=== PATIENT | female | born 1965 | race Caucasian/White ===

== ENCOUNTER 2023-05-27 10:35 | Emergency (ER) | payer SELFPAY ==
[2023-05-27 10:49] VITALS: TEMP 97.3
--- NOTE | 2023-05-27 11:14 | XRAY ---
Indication: Pain. Comparison: None 3 view right knee demonstrates osteopenia, minimal/mild tricompartmental degenerative changes greatest medial compartment, small nonspecific effusion, and mild scattered vascular calcifications. No other bony, articular, or soft tissue abnormalities.
--- NOTE | 2023-05-27 11:23 | ERPHSYRPT ---
- History of Present Illness Time Seen by Provider: 05/27/23 11:00 Source: patient Exam Limitations: no limitations Patient Subjective Stated Complaint: Right knee injury Triage Nursing Assessment: Patient brought into ED per w/c and transferred to bed per self. Patient A+O X 3. Patient's skin pink, warm and dry. Patient states she was at work walking up stairs and felt a "pop" to right knee. Patient complains of pain to right knee and behind knee 7/10; worse when ambulating. Right knee noted to be swollen. Physician History: Patient is a 58-year-old female presents to our ED for evaluation of pain to her right knee. She was walking upstairs felt a pop. Patient now has pain rated 7 out of 10. Patient also has pain behind the right knee as well as in her right calf. Pain worse with weightbearing pain improved with rest. Symptoms are mild to moderate in intensity. Patient voices no other complaints or concerns at this time. Portions of this note were created with voice recognition technology. There may be grammatical, spelling, punctuation or sound alike errors Method of Injury: other Occurred: just prior to arrival Quality: constant Severity of Pain-Max: moderate Severity of Pain-Current: mild Lower Extremities Pain: knee: right, other: right (Right lower extremity is neurovascular tact distally. Compartments are soft. Cap refill less than 2 seconds.) Modifying Factors: Improves With: movement Associated Symptoms: none Allergies/Adverse Reactions: adhesive tape Allergy (Verified 05/27/23 10:40) cephalexin [From Keflex] Allergy (Verified 05/27/23 10:40) Hx Influenza Vaccination/Date Given: No Hx Pneumococcal Vaccination/Date Given: No Immunizations Up to Date: Yes Travel Risk - International Travel Have you traveled outside of the country in past 3 weeks: No - Coronavirus Screening Are you exhibiting any of the following symptoms?: No Close contact with a COVID-19 positive Pt in past 14-21 Days: No - Vaccine Status Have you recieved a Covid-19 vaccination: No - Review of Systems Constitutional: No Symptoms, No Fever, No Chills Eyes: No Symptoms Ears, Nose, & Throat: No Symptoms Respiratory: No Symptoms, No Cough, No Dyspnea Cardiac: No Symptoms, No Chest Pain, No Edema, No Syncope Abdominal/Gastrointestinal: No Symptoms, No Abdominal Pain, No Nausea, No Vomiting, No Diarrhea Genitourinary Symptoms: No Symptoms, No Dysuria Musculoskeletal: No Symptoms, No Back Pain, No Neck Pain Skin: No Symptoms, No Rash Neurological: No Dizziness, No Focal Weakness, No Sensory Changes Psychological: No Symptoms Endocrine: No Symptoms Hematologic/Lymphatic: No Symptoms Immunological/Allergic: No Symptoms All Other Systems: Reviewed and Negative - Past Medical History Pertinent Past Medical History: Yes Neurological History: No Pertinent History ENT History: No Pertinent History Cardiac History: Hypertension Respiratory History: No Pertinent History Endocrine Medical History: No Pertinent History Musculoskeletal History: No Pertinent History GI Medical History: No Pertinent History History: No Pertinent History Psycho-Social History: Depression Female Reproductive Disorders: No Pertinent History - Past Surgical History Past Surgical History: Yes Neuro Surgical History: No Pertinent History Cardiac: No Pertinent History Respiratory: No Pertinent History Gastrointestinal: No Pertinent History Genitourinary: Other Female Surgical History: Dilation & Curettage, Section Other Surgical History: 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 mesh surgery 2011 - Social History Smoking Status: Never smoker Exposure to second hand smoke: No Drug Use: none Patient Lives Alone: No - Nursing Vital Signs Nursing Vital Signs: Initial Vital Signs Temperature 97.3 F 05/27/23 10:43 Pulse Rate 77 05/27/23 10:43 Respiratory Rate 18 05/27/23 10:43 Blood Pressure 201/104 05/27/23 10:43 O2 Sat by Pulse Oximetry 99 05/27/23 10:43 Pain Scale Pain Intensity 5 - Physical Exam General Appearance: no apparent distress, alert Eyes, Ears, Nose, Throat Exam: normal ENT inspection, moist mucous membranes Neck Exam: non-tender, supple Cardiovascular/Respiratory Exam: chest non-tender, normal breath sounds, regular rate/rhythm, no respiratory distress Gastrointestinal/Abdominal Exam: non-tender, soft, No guarding Back Exam: normal inspection, normal range of motion, No vertebral tenderness Hips Exam: bilateral: non-tender, normal inspection, normal range of motion, no evidence of injury Legs Exam: right leg: other (Positive Homans' sign right lower extremity. Otherwise neurovascular intact distally. Compartments are soft. Cap refill less than 2 seconds.), left leg: non-tender, normal inspection, normal range of motion, no evidence of injury Knees Exam: right knee: pain, other (On the ligaments are stable. The involved extremity is neurovascular intact distally. Compartments are soft cap refill less than 2 seconds.), left knee: non-tender, normal inspection, normal range of motion, no evidence of injury Ankle Exam: bilateral ankle: non-tender, normal inspection, normal range of motion, no evidence of injury Foot Exam: bilateral foot: non-tender, normal inspection, normal range of motion, no evidence of injury Neuro/Tendon Exam: normal sensation, normal motor functions Mental Status Exam: alert, oriented x 3, cooperative Skin Exam: normal color, warm, dry SpO2 Interpretation: normal SpO2: 99 O2 Delivery: Room Air - Course Nursing assessment & vital signs reviewed: Yes - Radiology Exams Knee X-ray Interpretation: Teleradiologist Report (Osteopenia, tricompartment arthritis, effusion and vascular calcification) - Radiology Ultrasound Exam Venous Lower Extremity Ultrasound: discussed w/radiologist (Per calender machine operator negative DVT study) Ordered Tests: Active Orders 24 hr Category Date Time Status Selwyn Bandage Application -[facility] STAT Care 05/27/23 11:47 Active Crutches STAT Care 05/27/23 12:02 Active KNEE (3 VIEWS) Stat Exams 05/27/23 10:38 Completed VENOUS UNILAT/LIMITED EXTREMIT [US] Stat Exams 05/27/23 11:26 Completed Medication Summary Discontinued Medications Generic Name Dose Route Start Last Admin Trade Name Larisa PRN Reason Stop Dose Admin Ketorolac Tromethamine 30 mg 05/27/23 11:29 05/27/23 11:35 Ketorolac Tromethamine 30 Mg/Ml Inj IM 05/27/23 11:30 30 mg STAT ONE Administration Ketorolac Tromethamine Confirm 05/27/23 11:40 Ketorolac Tromethamine 30 Mg/Ml Inj Administered 05/27/23 11:41 Dose 30 mg .ROUTE .STK-MED ONE - Progress Progress: improved Progress Note: Patient's blood pressure observed to be elevated however patient remains asymptomatic with regard to her blood pressure. Patient states she has not been on blood pressure medication for at least 6 months. Patient recently moved to the area from [facility]. Patient has been planning to see Dr. Javier however has not scheduled an appointment. In light of patient's blood pressure we schedule an appointment to follow-up with Dr. Javier in 2 days, at 2 PM. Patient agrees to follow-up as scheduled. Work note was provided. We applied Selwyn wrap to the right knee and provide patient with bilateral axillary crutches. A referral to the orthopedic clinic was also provided. Patient received IM dose of Toradol. A prescription for the same was forwarded to patient's pharmacy. Patient resting comfortably. She voices no other complaints or concerns at this time. Portions of this note were created with voice recognition technology. There may be grammatical, spelling, punctuation or sound alike errors 05/27/23 11:[address] Griggs (Case discussed with Dr. Resendiz at 12:20 PM. She advised starting losartan 50 mg daily for 7 days at least until patient follows up with Dr. Javier in the office) Counseled pt/family regarding: diagnosis, need for follow-up, rad results - Departure Departure Disposition: Home Clinical Impression: Knee pain, Osteopenia, Knee effusion, Arthritis of knee, Vascular calcification, Hypertension Condition: Stable Critical Care Time: No Referrals: DOCTOR,NO FAMILY [Primary Care Provider] - Follow up/PCP as directed Instructions: Knee Pain (DC) Additional Instructions: Discharge/Care Plan NATO FERNANDEZ was seen on 05/27/23 in the Emergency Room. The patient was counseled regarding Diagnosis,Lab results, Imaging studies, need for follow up and when to return to the Emergency Room. Prescriptions given: Discharge Note I have spoken with the patient and/or caregivers. I have explained the patient's condition, diagnosis and treatment plan based on the information available to me at this time. I have answered the patient's and/or caregiver's questions and addressed any concerns. The patient and/or caregivers have as good understanding of the patient's diagnosis, condition and treatment plan as can be expected at this point. The vital signs have been stable. The patient's condition is stable and appropriate for discharge from the emergency department. The patient will pursue further outpatient evaluation with the primary care physician or other designated or consulting physician as outlined in the discharge instructions. The patient and/or caregivers are agreeable to this plan of care and follow-up instructions have been explained in detail. The patient and/or caregivers have received these instruction. The patient/and or caregivers are aware that any significant change in condition or worsening of symptoms should prompt an immediate return to this or the closest emergency department or call 911. Prescriptions: Losartan Potassium 50 mg [Cozaar 50 MG] 50 mg PO DAILY 7 Days #7 tablet Ketorolac Trometh 10 mg Tab [TORAdol 10 MG TABLET] 10 mg PO TID 5 Days #15 tablet Outpatient Orders: Ortho Referral Time Frame: 1 Day, Facility: [facility], Location: ORTHO CLINIC
[2023-05-27] MEDS: TORAdol 30 mg Injection IM ONE (11:35)
[2023-05-27] MEDS ORDERED: TORAdol 30 mg Injection ONE (11:40)
--- NOTE | 2023-05-27 11:53 | XRAY ---
Indication: Pain. DVT. Two-dimensional sonogram and color Doppler imaging of the major venous vessels of the right leg performed. Comparison: None No thrombus seen in the examined deep venous vessels of the right leg including greater saphenous vein. Veins demonstrate normal compressibility. Venous waveforms are normal with and without augmentation. Impression: Right leg negative for DVT.
[2023-05-27 12:27] VITALS: RESP 16
[2023-05-27] MEDS: Cozaar 50 MG PO ONE (12:30)
[2023-05-27 12:51] VITALS: BP 181/102; PULSE 78; O2SAT 99
== END 2023-05-27 12:55 | disposition home or self-care (01) ==
LOC: ED 10:35
DX: M17.11 Unilateral primary osteoarthritis, right knee (principal); M25.561 Pain in right knee; M85.88 Other specified disorders of bone density and structure, other site; M25.461 Effusion, right knee; I70.201 Unspecified atherosclerosis of native arteries of extremities, right leg; I10 Essential (primary) hypertension; M79.661 Pain in right lower leg; Z28.310 Unvaccinated for COVID-19
CPT/HCPCS: 73562; 93971; 96372; 99284; J1885; A9270-GY

== ENCOUNTER 2023-10-10 14:26 | Observation (INO) | payer BC ==
[2023-10-10] MEDS ORDERED: Sodium Chloride 0.9% 1000 ML 1,000 ML ONE ×4 (14:37→19:01)
[2023-10-10] MEDS ORDERED: CLONIDINE 0.1 MG TABLET ONE (15:12)
[2023-10-10] MEDS: Sodium Chloride 0.9% 1000 ML 1,000 ML IV STA ×2 (15:12)
[2023-10-10] MEDS: CLONIDINE 0.1 MG TABLET PO ONE (15:12)
[2023-10-10] MEDS: Sodium Chloride 0.9% 1000 ML 1,000 ML IV SCH ×2 (16:15→19:03)
--- NOTE | 2023-10-10 17:00 | ERPHSYRPT ---
- History of Present Illness Time Seen by Provider: 10/10/23 14:45 Historian: patient Exam Limitations: no limitations Patient Subjective Stated Complaint: Pt was at the infusion center today to get a bolus of fluid due to her lactic being 2.2 yesterday and her pH slightly low Triage Nursing Assessment: Pt brought self to the hospital, hypertensive, denies pain, has had diarrhea for a week so pt went to see Marielle Williamson a couple of days ago and she ordered labs which were done yesterday, afterwards pt was told to go to the infusion center for some fluids, Infusion thought that the pt's labs were still out of whack so they sent her to the ER, pt states that she just feels tired and weak, no new meds or foods, no difficulty breathing, denies chest pain, doesn't appear to be in any distress Physician History: Patient is a 58-year-old white female who has been had diarrhea for a week. She saw her nurse practitioner provider and labs were ordered and were found to be slightly out of whack and that she had a elevated lactic acid she also had bicarb of 14.8. CO2 on electrolytes was 16. Lactic acid was 2.2.She wasShe did receive a call from her nurse practitioner telling her to go to the infusion center so she could receive fluids in the infusion center further labs were done which did not seem to show the correction that was expected. Is the reason she was sent to the ER.She has lost weight.She has been unable to get a stool specimen since she has been in the hospital at the infusion center or in the ER at the time of this dictation. Timing/Duration: week(s) (1) Activities at Onset: none Pain Radiation: no radiation Severity of Pain-Max: mild Severity of Pain-Current: mild Previous symptoms: no prior history Allergies/Adverse Reactions: adhesive tape Allergy (Verified 10/10/23 14:49) cephalexin [From Keflex] Allergy (Verified 10/10/23 14:49) Home Medications: ALPRAZolam 0.25 MG [xanAX 0.25 MG] 0.25 mg PO TID 10/10/23 [History] Bupropion HCl Xl 150 mg [Wellbutrin XL 150 MG] 150 mg PO DAILY 10/10/23 [History] Clonidine HCl 0.1 mg [Clonidine 0.1 mg Tablet] 0.1 mg PO BID 10/10/23 [History] Duloxetine HCl [Cymbalta] 60 mg PO DAILY 10/10/23 [History] Metoprolol Succinate 25 mg Xl* [Toprol-Xl 25MG Tablets] 25 mg PO DAILY 10/10/23 [History] Hx Influenza Vaccination/Date Given: No Hx Pneumococcal Vaccination/Date Given: No Travel Risk - International Travel Have you traveled outside of the country in past 3 weeks: No - Emerging Infectious Disease Are you exhibiting symptoms associated with any current EIDs: Yes Symptoms: Diarrhea - Review of Systems Constitutional: No Fever, No Chills Eyes: No Symptoms Ears, Nose, & Throat: No Symptoms Respiratory: No Cough, No Dyspnea Cardiac: No Chest Pain, No Edema, No Syncope Abdominal/Gastrointestinal: Abdominal Pain, Nausea, Vomiting, Diarrhea Genitourinary Symptoms: No Dysuria Musculoskeletal: No Back Pain, No Neck Pain Skin: No Rash Neurological: No Dizziness, No Focal Weakness, No Sensory Changes Psychological: No Symptoms Endocrine: No Symptoms All Other Systems: Reviewed and Negative - Past Medical History Pertinent Past Medical History: Yes Neurological History: No Pertinent History ENT History: No Pertinent History Cardiac History: High Cholesterol, Hypertension Respiratory History: No Pertinent History Endocrine Medical History: No Pertinent History Musculoskeletal History: No Pertinent History GI Medical History: No Pertinent History History: Other Psycho-Social History: Depression Female Reproductive Disorders: No Pertinent History Other Medical History: [facility] - Past Surgical History Past Surgical History: Yes Neuro Surgical History: No Pertinent History Cardiac: No Pertinent History Respiratory: No Pertinent History Gastrointestinal: No Pertinent History Genitourinary: Other Female Surgical History: Dilation & Curettage, Section Other Surgical History: 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 mesh surgery 2012 - Social History Smoking Status: Never smoker Exposure to second hand smoke: No Drug Use: none Patient Lives Alone: No - Nursing Vital Signs Nursing Vital Signs: Initial Vital Signs Temperature 97.3 F 10/10/23 14:37 Pulse Rate 75 10/10/23 14:37 Blood Pressure 212/94 10/10/23 14:37 O2 Sat by Pulse Oximetry 100 10/10/23 14:37 Pain Scale Pain Intensity 0 - Physical Exam General Appearance: no apparent distress, alert Eye Exam: PERRL/EOMI, eyes nml inspection Ears, Nose, Throat Exam: normal ENT inspection, pharynx normal, moist mucous membranes Neck Exam: normal inspection, non-tender, supple, full range of motion Respiratory Exam: normal breath sounds, lungs clear, No respiratory distress Cardiovascular Exam: regular rate/rhythm, normal heart sounds Gastrointestinal/Abdomen Exam: normal bowel sounds, tenderness, other (Right lower quadrant has a ureterostomy), No mass Back Exam: normal inspection, normal range of motion, No CVA tenderness, No vertebral tenderness Extremity Exam: normal inspection, normal range of motion, pelvis stable Neurologic Exam: alert, oriented x 3, cooperative, normal mood/affect, nml cerebellar function, sensation nml, No motor deficits Skin Exam: normal color, warm, dry SpO2: 100 - Course Nursing assessment & vital signs reviewed: Yes Ordered Tests: Active Orders 24 hr Category Date Time Status BLOOD CULTURE Stat Lab 10/10/23 16:08 Received CBC W DIFF Stat Lab 10/10/23 17:45 Completed CMP Stat Lab 10/10/23 17:45 Completed Lactic Acid Stat Lab 10/10/23 17:20 Completed VENOUS BLOOD GAS Stat Lab 10/10/23 17:20 Completed Medication Summary Generic Name Dose Route Start Last Admin Trade Name Freq PRN Reason Stop Dose Admin Sodium Chloride 1,000 mls @ 999 mls/hr 10/10/23 16:15 10/10/23 17:19 Sodium Chloride 0.9% 1000 Ml IV 10/10/23 17:15 Infused .Q1H1M JENNIFER Infusion Discontinued Medications Generic Name Dose Route Start Last Admin Trade Name Freq PRN Reason Stop Dose Admin Clonidine 0.1 mg 10/10/23 15:10 10/10/23 15:12 Clonidine Hcl 0.1 Mg Tablet PO 10/10/23 15:11 0.1 mg STAT ONE Administration Clonidine Confirm 10/10/23 15:12 Clonidine Hcl 0.1 Mg Tablet Administered 10/10/23 15:13 Dose 0.1 mg .ROUTE .STK-MED ONE Sodium Chloride Confirm 10/10/23 14:37 Sodium Chloride 0.9% 1000 Ml Administered 10/10/23 14:38 Dose 1,000 mls @ ud .ROUTE .STK-MED ONE Sodium Chloride 1,000 mls @ 999 mls/hr 10/10/23 15:02 10/10/23 16:29 Sodium Chloride 0.9% 1000 Ml IV 10/10/23 16:02 Infused .Q1H1M STA Infusion Sodium Chloride 1,000 mls @ 999 mls/hr 10/10/23 15:05 10/10/23 16:29 Sodium Chloride 0.9% 1000 Ml IV 10/10/23 16:05 Infused .Q1H1M STA Infusion Sodium Chloride Confirm 10/10/23 15:12 Sodium Chloride 0.9% 1000 Ml Administered 10/10/23 15:13 Dose 1,000 mls @ ud .ROUTE .STK-MED ONE Sodium Chloride Confirm 10/10/23 16:13 Sodium Chloride 0.9% 1000 Ml Administered 10/10/23 16:14 Dose 1,000 mls @ ud .ROUTE .[facility]-MED ONE Lab/Rad Data: Laboratory Result Diagrams 10/10/23 17:45 10/10/23 17:45 Laboratory Results 10/10/23 10/10/23 10/10/23 Range/Units 17:45 17:45 17:20 WBC 4.9 (4.0-10.5) x10^3/uL RBC 3.41 L (4.1-5.4) x10^6/uL Hgb 9.9 L (12.0-16.0) g/dL Hct 29.9 L (35-47) % MCV 87.7 (78-100) fL MCH 29.0 (26-32) pg MCHC 33.1 (32-36) g/dL RDW 13.6 (11.5-14.0) % Plt Count 170 (150-450) x10^3/uL MPV 10.2 (7.5-11.0) fL Gran % 61.1 (36.0-66.0) % Immature Gran % (Auto) 0.2 (0.00-0.4) % Nucleat RBC Rel Count 0.0 (0.00-0.1) % Eos # (Auto) 0.22 (0-0.5) x10^3/uL Immature Gran # (Auto) 0.01 (0.00-0.03) x10^3u/L Absolute Lymphs (auto) 1.25 (1.0-4.6) x10^3/uL Absolute Monos (auto) 0.39 (0.0-1.3) x10^3/uL Absolute Nucleated RBC 0.00 (0.00-0.01) x10^3u/L Lymphocytes % 25.8 (24.0-44.0) % Monocytes % 8.0 (0.0-12.0) % Eosinophils % 4.5 (0.00-5.0) % Basophils % 0.4 (0.0-0.4) % Absolute Granulocytes 2.96 (1.4-6.9) x10^3/uL Basophils # 0.02 (0-0.4) x10^3/uL pO2/FiO2 Ratio 21.0 % VBG pH 7.27 L (7.32-7.42) VBG pCO2 at Pat Temp 26 L (42-55) mm/Hg VBG pO2 at Pat Temp 103 H (25-40) mm/Hg VBG HCO3 11.9 L* (22-28) meq/L VBG O2 Sat (Heather) 98.7 (95-100) VBG Base Excess -13.5 L (-2.0-2.0) VBG Hemoglobin 10.4 VBG Carboxyhemoglobin 1.3 (0.0-6.9) % T HGB POC Potassium 3.4 L (3.5-5.1) Sodium 139 (135-145) mmol/L Potassium 3.3 L (3.5-5.1) mmol/L Chloride 120 H (98-107) mmol/L Carbon Dioxide 10 L* (22-30) mmol/L Anion Gap 12.5 (5-15) MEQ/L BUN 14 (7-17) mg/dL Creatinine 0.91 (0.52-1.04) mg/dL Estimated GFR 73.1 ML/MIN Glucose 85 (74-106) mg/dL Lactic Acid 0.4 (0.4-2.0) Calcium 7.6 L D (8.4-10.2) mg/dL Total Bilirubin 0.30 (0.2-1.3) mg/dL AST 15 (14-36) U/L ALT 7 (0-35) U/L Alkaline Phosphatase 53 (38-126) U/L Serum Total Protein 5.8 L (6.3-8.2) g/dL Albumin 3.0 L (3.5-5.0) g/dL - Progress Progress: improved Medical Desision Making - Discussion of managment Care discussed with:: hospitalist (Spoke with . Dr. Owens will be the admitting physician) Reviewed:: Test results, Need for additional workup Agreed on:: Treatment plan, decision to admit Will see patient: in hospital - Diagnostic Testing Diagnostic test were ordered, analyzed, and reviewed by me: Yes - Risk of complications Low Risk: Low risk of morbidity from additional dx testing or treatment - Departure Departure Disposition: Observation Clinical Impression: Dehydration, Acidosis Condition: Stable Critical Care Time: No Referrals: HAMIDA WILLIAMSON NP [Primary Care Provider] - Follow up/PCP as directed Instructions: Dehydration, Adult (DC)
[2023-10-10 17:48] LABS: Lactic Acid 0.4 (0.4-2.0); VBG BASE EXCESS -13.5 (-2.0-2.0); VBG CARBOXYHEMOGLOBIN 1.3 % T HGB (0.0-6.9); VBG HCO3- 11.9 meq/L (22-28); VBG HEMOGLOBIN 10.4; VBG O2 SATURATION 98.7 (95-100); VBG POTASSIUM 3.4 (3.5-5.1); VBG pH 7.27 (7.32-7.42)
[2023-10-10 17:48] LABS: Absolute Neutrophil Ct (ANC) 2.96 x10^3/uL (1.4-6.9); BASOPHIL % 0.4 % (0.0-0.4); Basophil (Absolute #) 0.02 x10^3/uL (0-0.4); Eosinophil % 4.5 % (0.00-5.0); Eosinophil (Absolute #) 0.22 x10^3/uL (0-0.5); Hematocrit 29.9 % (35-47); Hemoglobin 9.9 g/dL (12.0-16.0); IMMATURE GRAN # 0.01 x10^3u/L (0.00-0.03); IMMATURE GRAN % 0.2 % (0.00-0.4); Lymphocyte (Absolute #) 1.25 x10^3/uL (1.0-4.6); Lymphocytes % 25.8 % (24.0-44.0); Mean Cell Volume 87.7 fL (78-100); Mean Corpuscular Hgb Concent. 33.1 g/dL (32-36); Mean Platelet Volume 10.2 fL (7.5-11.0); Monocyte (Absolute #) 0.39 x10^3/uL (0.0-1.3); Neutrophil % 61.1 % (36.0-66.0); Platelet Count 170 x10^3/uL (150-450); Red Blood Count 3.41 x10^6/uL (4.1-5.4); Red Cell Distribution Width 13.6 % (11.5-14.0); White Blood Count 4.9 x10^3/uL (4.0-10.5)
[2023-10-10 18:00] LABS: ANION GAP 12.5 MEQ/L (5-15); BILIRUBIN,TOTAL 0.3 mg/dL (0.2-1.3); Creatinine 1 0.91 mg/dL (0.52-1.04); EST GLOMERULAR FILTRATION RATE 73.1 ML/MIN; Potassium 3.3 mmol/L (3.5-5.1); Total Protein 5.8 g/dL (6.3-8.2)
[2023-10-10 18:15] LABS: Calcium 7.6 mg/dL (8.4-10.2)
[2023-10-10] MEDS ORDERED: PHENERGAN 25 MG PO PRN (19:21)
[2023-10-10] MEDS ORDERED: Dextrose 5%/Water IV Soln. 1000 ML 1,000 ML IV ONE (19:22)
[2023-10-10] MEDS ORDERED: SODIUM BICARBONATE 50 MEQ/50 ML ABBOJECT IV ONE (19:22)
--- NOTE | 2023-10-10 19:29 | PCM.HP ---
History of Present Illness - Chief Complaint Chief Complaint: Dehydration History of Present Illness: is a 58 year old female with HTN, HLP, depression/anxiety here with c/o diarrhea x 1 week. Has chills but no fever. No dysuria. No bloody stools or black stools. 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 She went to her [facility] and had lab drawn and saw lactic acid was high and then IVF was given. Today, she came in because not better. - Review of Systems Constitutional: Chills Eyes: No Symptoms Ears, Nose, & Throat: No Symptoms Respiratory: No Symptoms Cardiac: No Symptoms Abdominal/Gastrointestinal: Diarrhea Genitourinary Symptoms: No Symptoms Musculoskeletal: No Symptoms Skin: No Symptoms Neurological: No Symptoms Psychological: No Symptoms Endocrine: No Symptoms Hematologic/Lymphatic: No Symptoms Immunological/Allergic: No Symptoms Medications & Allergies Home Medications: Home Medication List Losartan Potassium 50 mg [Cozaar 50 MG] 50 mg PO DAILY 7 Days #7 tablet 05/27/23 [Rx Confirmed 10/10/23] ALPRAZolam 0.25 MG [xanAX 0.25 MG] 0.25 mg PO TID 10/10/23 [History Confirmed 10/10/23] Bupropion HCl Xl 150 mg [Wellbutrin XL 150 MG] 150 mg PO DAILY 10/10/23 [History Confirmed 10/10/23] Clonidine HCl 0.1 mg [Clonidine 0.1 mg Tablet] 0.1 mg PO BID 10/10/23 [History Confirmed 10/10/23] Duloxetine HCl [Cymbalta] 60 mg PO DAILY 10/10/23 [History Confirmed 10/10/23] Metoprolol Succinate 25 mg Xl* [Toprol-Xl 25MG Tablets] 25 mg PO DAILY [History Confirmed 10/10/23] Allergies/Adverse Reactions: Allergies Allergy/AdvReac Type Severity Reaction Status Date / Time adhesive tape Allergy Verified 10/10/23 14:49 cephalexin [From Keflex] Allergy Verified 10/10/23 14:49 - Past Medical History Past Medical History: Yes Neurological History: No Pertinent History ENT History: No Pertinent History Cardiac History: High Cholesterol, Hypertension Respiratory History: No Pertinent History Endocrine Medical History: No Pertinent History Musculoskelatal History: No Pertinent History GI Medical History: No Pertinent History History: Other Pyscho-Social History: Depression Reproductive Disorders: No Pertinent History Comment: tomeka pouch - Past Surgical History Past Surgical History: Yes Neuro Surgical History: No Pertinent History Cardiac History: No Pertinent History Respiratory Surgery: No Pertinent History GI Surgical History: No Pertinent History Genitourinary Surgical Hx: Other Female Surgical History: Dilation & Curettage, Section Other Surgical History: 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 mesh surgery 2012 Significant Family History: no pertinent family hx - Social History Smoking Status: Never smoker Exposure to second hand smoke: No Alcohol: Occasionally Drug Use: none - Social Determinants of Health Do you worry about a steady place to live?: No Do you have any problems with any of the following?: No known problems In the past 12 months,have you had to go without utilities?: No Have you or anyone in your house had to go without enough: No Transportation Issues: No Has anyone in your support network made you feel unsafe?: No - Physical Exam Vital Signs: Vital Signs - 24 hr Temp Pulse Resp BP BP Pulse Ox 10/10/23 18:40 100 10/10/23 17:01 61 18 196/82 100 10/10/23 16:30 64 17 159/87 100 10/10/23 16:20 94 L 10/10/23 16:10 99 10/10/23 16:02 100 10/10/23 15:30 191/77 100 10/10/23 15:07 216/107 100 10/10/23 14:37 97.3 F 75 212/94 100 General Appearance: no apparent distress, alert Neurologic Exam: alert, oriented x 3, cooperative Eye Exam: PERRL/EOMI Ears, Nose, Throat Exam: normal ENT inspection Neck Exam: normal inspection, non-tender, supple Respiratory Exam: normal breath sounds, airway intact Cardiovascular Exam: regular rate/rhythm, normal heart sounds Gastrointestinal/Abdomen Exam: soft, normal bowel sounds Pelvic Exam: deferred Rectal Exam: deferred Back Exam: normal inspection Extremity Exam: normal inspection Skin Exam: normal color Results - Labs Lab/Micro Results: Lab Results-Last 24 Hours 10/10/23 10/10/23 10/10/23 Range/Units 17:20 17:45 17:45 WBC 4.9 (4.0-10.5) x10^3/uL RBC 3.41 L (4.1-5.4) x10^6/uL Hgb 9.9 L (12.0-16.0) g/dL Hct 29.9 L (35-47) % MCV 87.7 (78-100) fL MCH 29.0 (26-32) pg MCHC 33.1 (32-36) g/dL RDW 13.6 (11.5-14.0) % Plt Count 170 (150-450) x10^3/uL MPV 10.2 (7.5-11.0) fL Gran % 61.1 (36.0-66.0) % Immature Gran % (Auto) 0.2 (0.00-0.4) % Nucleat RBC Rel Count 0.0 (0.00-0.1) % Eos # (Auto) 0.22 (0-0.5) x10^3/uL Immature Gran # (Auto) 0.01 (0.00-0.03) x10^3u/L Absolute Lymphs (auto) 1.25 (1.0-4.6) x10^3/uL Absolute Monos (auto) 0.39 (0.0-1.3) x10^3/uL Absolute Nucleated RBC 0.00 (0.00-0.01) x10^3u/L Lymphocytes % 25.8 (24.0-44.0) % Monocytes % 8.0 (0.0-12.0) % Eosinophils % 4.5 (0.00-5.0) % Basophils % 0.4 (0.0-0.4) % Absolute Granulocytes 2.96 (1.4-6.9) x10^3/uL Basophils # 0.02 (0-0.4) x10^3/uL pO2/FiO2 Ratio 21.0 % VBG pH 7.27 L (7.32-7.42) VBG pCO2 at Pat Temp 26 L (42-55) mm/Hg VBG pO2 at Pat Temp 103 H (25-40) mm/Hg VBG HCO3 11.9 L* (22-28) meq/L VBG O2 Sat (Heather) 98.7 (95-100) VBG Base Excess -13.5 L (-2.0-2.0) VBG Hemoglobin 10.4 VBG Carboxyhemoglobin 1.3 (0.0-6.9) % T HGB POC Potassium 3.4 L (3.5-5.1) Sodium 139 (135-145) mmol/L Potassium 3.3 L (3.5-5.1) mmol/L Chloride 120 H (98-107) mmol/L Carbon Dioxide 10 L* (22-30) mmol/L Anion Gap 12.5 (5-15) MEQ/L BUN 14 (7-17) mg/dL Creatinine 0.91 (0.52-1.04) mg/dL Estimated GFR 73.1 ML/MIN Glucose 85 (74-106) mg/dL Lactic Acid 0.4 (0.4-2.0) Calcium 7.6 L D (8.4-10.2) mg/dL Total Bilirubin 0.30 (0.2-1.3) mg/dL AST 15 (14-36) U/L ALT 7 (0-35) U/L Alkaline Phosphatase 53 (38-126) U/L Serum Total Protein 5.8 L (6.3-8.2) g/dL Albumin 3.0 L (3.5-5.0) g/dL Microbiology 10/10/23 Unknown Stool Culture Result 1 - Final Stool Not Reportable Stool Culture Result 2 - Final Not Reportable Stool Culture Result 3 - Final Not Reportable Stool Culture Result 4 - Final Not Reportable Stool Culture Organism Suscept - Final Not Reportable Campylobacter Result 1 - Final Not Reportable Campylobacter Result 2 - Final Not Reportable Campylobactor Result 3 - Final Not Reportable Campylobacter Result 4 - Final Not Reportable Campylobactor Susceptibility - Final Not Reportable Assessment/Plan (1) Acute metabolic acidosis Current Visit: Yes Status: Acute Assessment & Plan: HCO3 11 - losing bicarb via diarrhea. Starting bicarb drip 120ml/hr Code(s): E87.21 - ACUTE METABOLIC ACIDOSIS (2) Diarrhea Current Visit: Yes Status: Acute Assessment & Plan: Diarrhea - watery, no pain nor blood. 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 But stools studies sent. No anti-diarrhea until infection can be ruled out. IVF for supportive measures. Doubt IBD. No recent travel, no new foods, no new medications. Code(s): R19.7 - DIARRHEA, UNSPECIFIED (3) Dehydration Current Visit: Yes Status: Acute Assessment & Plan: IVF as above for diarrhea Code(s): E86.0 - DEHYDRATION (4) Hypokalemia Current Visit: Yes Status: Acute Assessment & Plan: K is 3.3, due to GI loss from diarrhea. replace orally, monitor Code(s): E87.6 - HYPOKALEMIA (5) Hypertension Current Visit: No Status: Acute Assessment & Plan: Resume home meds. Monitor BP and adjust as needed Code(s): I10 - ESSENTIAL (PRIMARY) HYPERTENSION (6) Anemia Current Visit: Yes Status: Acute Assessment & Plan: She has no previous knowledge of this. Hgb 9.9. She no longer has menstrual period. She will follow-up with her [facility] on this Code(s): D64.9 - ANEMIA, UNSPECIFIED Telemedicine Encounter - Telemedicine Encounter Telemedicine Encounter: The entirety of this encounter was performed via Telemedicine" The pt gave me verbal consent to have this telemedicine visit
[2023-10-10] MEDS: Sodium Bicarbonate 50 MEQ/50 ML VIAL*** 150 MEQ in Dextrose 5%/Water IV Soln. 1000 ML 1... IV SCH (19:55)
[2023-10-10] MEDS: Klor Con PO ONE (20:51)
[2023-10-10] MEDS: xanAX 0.25 MG PO SCH (20:52)
[2023-10-10] MEDS: HEPARIN 5000 UNITS/0.5 ML (HIGH RISK MED) SQ SCH (20:52)
[2023-10-11] MEDS ORDERED: SODIUM BICARBONATE 50 MEQ/50 ML ABBOJECT IV ONE (04:43)
[2023-10-11] MEDS ORDERED: Sodium Bicarbonate 50 MEQ/50 ML VIAL ONE (04:43)
[2023-10-11] MEDS ORDERED: Dextrose 5%/Water IV Soln. 1000 ML 1,000 ML IV ONE (04:44)
[2023-10-11 05:39] LABS: Hematocrit 31.8 % (35-47); Hemoglobin 10.4 g/dL (12.0-16.0); Mean Cell Volume 88.6 fL (78-100); Mean Corpuscular Hgb Concent. 32.7 g/dL (32-36); Mean Platelet Volume 10.3 fL (7.5-11.0); Platelet Count 172 x10^3/uL (150-450); Red Blood Count 3.59 x10^6/uL (4.1-5.4); Red Cell Distribution Width 13.7 % (11.5-14.0); White Blood Count 3.9 x10^3/uL (4.0-10.5)
[2023-10-11 06:02] LABS: ALBUMIN 3.3 g/dL (3.5-5.0); ANION GAP 9.7 MEQ/L (5-15); BILIRUBIN,TOTAL 0.5 mg/dL (0.2-1.3); Calcium 8.5 mg/dL (8.4-10.2); Creatinine 1 1.01 mg/dL (0.52-1.04); EST GLOMERULAR FILTRATION RATE 64.5 ML/MIN; Potassium 3.4 mmol/L (3.5-5.1); Total Protein 6.1 g/dL (6.3-8.2)
[2023-10-11] MEDS ORDERED: APRESOLINE 20 MG/ML INJ IV PRN (07:24)
--- NOTE | 2023-10-11 07:28 | PCM.NOTE ---
Date and Time: 10/11/23726 Subjective Assessment: 10/11/23 is a 58 year old female with PMHX of HTN, HLP, Elida pouch and self- caths, and depression/anxiety. She was admitted on 10/10 with c/o diarrhea x 1 week. She has chills but no fever. No dysuria, hematochezia, black stools. 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 She reports she went to her PCP and had lab drawn and saw lactic acid was high and then IVF were given. She came in to the ER because she was not better and feeling weak. Today she reports she is starting to feel better. She reports no loose stools since . She continues to have some abd cramping. Carbon dioxide improved and now 18 with bicarb gtt. Will transition to regular diet today. If sxs and labs continue to improved most likely to d/c tomorrow. She denies CP, SOB, N/V. - Review of Systems Constitutional: Weakness, No Fever, No Chills Eyes: No Symptoms Ears, Nose, & Throat: No Symptoms Respiratory: No Cough, No Short Of Breath Cardiac: No Chest Pain, No Edema, No Syncope Abdominal/Gastrointestinal: Abdominal Pain (cramping), Diarrhea (resolved), No Nausea, No Vomiting Genitourinary Symptoms: No Dysuria Musculoskeletal: No Back Pain, No Neck Pain Skin: No Rash Neurological: No Dizziness, No Focal Weakness, No Sensory Changes Psychological: No Symptoms Endocrine: No Symptoms Hematologic/Lymphatic: No Symptoms Immunological/Allergic: No Symptoms Objective Exam General Appearance: no apparent distress, alert Neurologic Exam: alert, oriented x 3, cooperative, normal mood/affect, nml cerebellar function, sensation nml, No motor deficits Skin Exam: normal color, warm, dry Eye Exam: PERRL, EOMI, eyes nml inspection Ears, Nose, Throat Exam: normal ENT inspection, pharynx normal, moist mucous membranes Neck Exam: normal inspection, non-tender, supple, full range of motion Respiratory Exam: normal breath sounds, lungs clear, No respiratory distress Cardiovascular Exam: regular rate/rhythm, normal heart sounds Gastrointestinal/Abdomen Exam: soft, No tenderness, No mass Extremity Exam: normal inspection, normal range of motion Back Exam: normal inspection, normal range of motion, No CVA tenderness, No vertebral tenderness Pelvic Exam: deferred Rectal Exam: deferred Objective Data Vital Signs: Vital Signs - 24 hr Temp Pulse Resp BP BP Pulse Ox 10/11/23 06:34 97.9 F 71 18 189/87 99 10/11/23 04:00 96.5 F 67 18 200/88 99 10/11/23 00:00 97.2 F 66 18 207/90 97 10/10/23 19:57 97.2 F 66 18 207/90 97 10/10/23 18:40 100 10/10/23 17:01 61 18 196/82 100 10/10/23 16:30 64 17 159/87 100 10/10/23 16:20 94 L 10/10/23 16:10 99 10/10/23 16:02 100 10/10/23 15:30 191/77 100 10/10/23 15:07 216/107 100 10/10/23 14:37 97.3 F 75 212/94 100 Pain Assessment - Last Documented Pain Intensity 0 Intake and Output: Intake & Output 10/08/23 10/09/23 10/10/23 10/11/23 11:59 11:59 11:59 11:59 Intake Total 1503 Balance 1503 Weight 85 kg Lab Results: Lab Results-Last 24 Hours 10/10/23 10/10/23 10/10/23 Range/Units 17:20 17:45 17:45 WBC 4.9 (4.0-10.5) x10^3/uL RBC 3.41 L (4.1-5.4) x10^6/uL Hgb 9.9 L (12.0-16.0) g/dL Hct 29.9 L (35-47) % MCV 87.7 (78-100) fL MCH 29.0 (26-32) pg MCHC 33.1 (32-36) g/dL RDW 13.6 (11.5-14.0) % Plt Count 170 (150-450) x10^3/uL MPV 10.2 (7.5-11.0) fL Gran % 61.1 (36.0-66.0) % Immature Gran % (Auto) 0.2 (0.00-0.4) % Nucleat RBC Rel Count 0.0 (0.00-0.1) % Eos # (Auto) 0.22 (0-0.5) x10^3/uL Immature Gran # (Auto) 0.01 (0.00-0.03) x10^3u/L Absolute Lymphs (auto) 1.25 (1.0-4.6) x10^3/uL Absolute Monos (auto) 0.39 (0.0-1.3) x10^3/uL Absolute Nucleated RBC 0.00 (0.00-0.01) x10^3u/L Lymphocytes % 25.8 (24.0-44.0) % Monocytes % 8.0 (0.0-12.0) % Eosinophils % 4.5 (0.00-5.0) % Basophils % 0.4 (0.0-0.4) % Absolute Granulocytes 2.96 (1.4-6.9) x10^3/uL Basophils # 0.02 (0-0.4) x10^3/uL pO2/FiO2 Ratio 21.0 % VBG pH 7.27 L (7.32-7.42) VBG pCO2 at Pat Temp 26 L (42-55) mm/Hg VBG pO2 at Pat Temp 103 H (25-40) mm/Hg VBG HCO3 11.9 L* (22-28) meq/L VBG O2 Sat (Heather) 98.7 (95-100) VBG Base Excess -13.5 L (-2.0-2.0) VBG Hemoglobin 10.4 VBG Carboxyhemoglobin 1.3 (0.0-6.9) % T HGB POC Potassium 3.4 L (3.5-5.1) Sodium 139 (135-145) mmol/L Potassium 3.3 L (3.5-5.1) mmol/L Chloride 120 H (98-107) mmol/L Carbon Dioxide 10 L* (22-30) mmol/L Anion Gap 12.5 (5-15) MEQ/L BUN 14 (7-17) mg/dL Creatinine 0.91 (0.52-1.04) mg/dL Estimated GFR 73.1 ML/MIN Glucose 85 (74-106) mg/dL Lactic Acid 0.4 (0.4-2.0) Calcium 7.6 L D (8.4-10.2) mg/dL Total Bilirubin 0.30 (0.2-1.3) mg/dL AST 15 (14-36) U/L ALT 7 (0-35) U/L Alkaline Phosphatase 53 (38-126) U/L Serum Total Protein 5.8 L (6.3-8.2) g/dL Albumin 3.0 L (3.5-5.0) g/dL 10/11/23 10/11/23 Range/Units 05:36 05:36 WBC 3.9 L (4.0-10.5) x10^3/uL RBC 3.59 L (4.1-5.4) x10^6/uL Hgb 10.4 L (12.0-16.0) g/dL Hct 31.8 L (35-47) % MCV 88.6 (78-100) fL MCH 29.0 (26-32) pg MCHC 32.7 (32-36) g/dL RDW 13.7 (11.5-14.0) % Plt Count 172 (150-450) x10^3/uL MPV 10.3 (7.5-11.0) fL Gran % (36.0-66.0) % Immature Gran % (Auto) (0.00-0.4) % Nucleat RBC Rel Count (0.00-0.1) % Eos # (Auto) (0-0.5) x10^3/uL Immature Gran # (Auto) (0.00-0.03) x10^3u/L Absolute Lymphs (auto) (1.0-4.6) x10^3/uL Absolute Monos (auto) (0.0-1.3) x10^3/uL Absolute Nucleated RBC (0.00-0.01) x10^3u/L Lymphocytes % (24.0-44.0) % Monocytes % (0.0-12.0) % Eosinophils % (0.00-5.0) % Basophils % (0.0-0.4) % Absolute Granulocytes (1.4-6.9) x10^3/uL Basophils # (0-0.4) x10^3/uL pO2/FiO2 Ratio % VBG pH (7.32-7.42) VBG pCO2 at Pat Temp (42-55) mm/Hg VBG pO2 at Pat Temp (25-40) mm/Hg VBG HCO3 (22-28) meq/L VBG O2 Sat (Heather) (95-100) VBG Base Excess (-2.0-2.0) VBG Hemoglobin VBG Carboxyhemoglobin (0.0-6.9) % T HGB POC Potassium (3.5-5.1) Sodium 143 (135-145) mmol/L Potassium 3.4 L (3.5-5.1) mmol/L Chloride 119 H (98-107) mmol/L Carbon Dioxide 18 L (22-30) mmol/L Anion Gap 9.7 (5-15) MEQ/L BUN 12 (7-17) mg/dL Creatinine 1.01 (0.52-1.04) mg/dL Estimated GFR 64.5 ML/MIN Glucose 90 (74-106) mg/dL Lactic Acid (0.4-2.0) Calcium 8.5 (8.4-10.2) mg/dL Total Bilirubin 0.50 (0.2-1.3) mg/dL AST 19 (14-36) U/L ALT 8 (0-35) U/L Alkaline Phosphatase 54 (38-126) U/L Serum Total Protein 6.1 L (6.3-8.2) g/dL Albumin 3.3 L (3.5-5.0) g/dL Assessment/Plan (1) Diarrhea Current Visit: Yes Status: Acute Assessment & Plan: - Diarrhea - watery, no pain nor blood. 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 - stools studies sent - No anti-diarrhea until infection can be ruled out. - No recent travel, no new foods, no new medications. - Eosinophils elevated Code(s): R19.7 - DIARRHEA, UNSPECIFIED (2) Acute metabolic acidosis Current Visit: Yes Status: Acute Assessment & Plan: - 2:2 diarrhea - bicarb gtt- continue - Carbon dioxide 18- improved, trend Code(s): E87.21 - ACUTE METABOLIC ACIDOSIS (3) Anemia Current Visit: Yes Status: Acute Qualifiers: Anemia type: unspecified type Qualified Code(s): D64.9 - Anemia, unspecified Assessment & Plan: - Hgb 10.4 - F/U OP for further workup and labs - denies hematochezia or dark stools - no previous hx oer pt - No longer has menstrual cycle. 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 - stools studies pending. - No anti-diarrhea until infection can be ruled out. Code(s): E86.0 - DEHYDRATION (5) Hypokalemia Current Visit: Yes Status: Acute Assessment & Plan: - K+ 3.4 replaced, trend Code(s): E87.6 - HYPOKALEMIA (6) Hypertension Current Visit: No Status: Acute Assessment & Plan: - acute on chronic - Resume home meds. Monitor BP and adjust as needed. - Hydralizine PRN Code(s): I10 - ESSENTIAL (PRIMARY) HYPERTENSION (7) Weakness Current Visit: Yes Status: Acute Assessment & Plan: - Nurses to assist pt as ther is no PT on the weekends - Improving with IVF Code(s): R53.1 - WEAKNESS (8) Hypomagnesemia Current Visit: Yes Status: Acute Assessment & Plan: - Mg+ 1.1- replaced VTE: Heparin PPI: Protonix Next of Kin: Meredith Olsen [phone] Code status: Full D/C plan: tomorrow Code(s): E83.42 - HYPOMAGNESEMIA
[2023-10-11 08:22] LABS: Eosinophil 5 % (0.00-3.0); Lymphocytes 34 % (24-44); Monocyte 7 % (0.0-12.0); Neutrophils 54 % (36.0-66.0); Total Cells Counted 100
[2023-10-11 08:23] LABS: Platelet Estimate NORMAL (NORMAL)
[2023-10-11] MEDS: Cymbalta 30 MG Capsule PO SCH (09:04)
[2023-10-11] MEDS: Protonix 40MG Tablet PO SCH (09:04)
[2023-10-11] MEDS: Acidophilus TABLET PO SCH (09:05)
[2023-10-11] MEDS: Klor Con PO SCH (09:05)
[2023-10-11] MEDS: Toprol-Xl 25MG Tablets PO SCH (09:05)
[2023-10-11] MEDS: Cozaar 50 MG PO SCH (09:06)
[2023-10-11] MEDS: Wellbutrin XL 150 MG PO SCH (09:06)
[2023-10-11] MEDS: MAG-OX 400 PO ONE (10:32)
[2023-10-11] MEDS: SODIUM BICARBONATE PO SCH (13:18)
[2023-10-11] MEDS: Toprol-Xl 25MG Tablets PO ONE (13:18)
[2023-10-12] MEDS: Apresoline 25 MG TABLET PO PRN ×2 (01:20→22:27)
[2023-10-12 05:39] LABS: Hematocrit 35.6 % (35-47); Mean Corpuscular Hemoglobin 29.3 pg (26-32); Mean Corpuscular Hgb Concent. 33.7 g/dL (32-36); Mean Platelet Volume 10.4 fL (7.5-11.0); Platelet Count 242 x10^3/uL (150-450); Red Blood Count 4.09 x10^6/uL (4.1-5.4); Red Cell Distribution Width 13.9 % (11.5-14.0)
[2023-10-12 06:09] LABS: ALBUMIN 3.4 g/dL (3.5-5.0); ANION GAP 12.4 MEQ/L (5-15); BILIRUBIN,TOTAL 0.4 mg/dL (0.2-1.3); Calcium 9.1 mg/dL (8.4-10.2); Creatinine 1 0.89 mg/dL (0.52-1.04); EST GLOMERULAR FILTRATION RATE 75.1 ML/MIN; Potassium 3.7 mmol/L (3.5-5.1); Total Protein 6.4 g/dL (6.3-8.2)
[2023-10-12] MEDS: MAG-OX 400 PO ONE (07:41)
[2023-10-12] MEDS: Toprol Xl 50 MG PO SCH (07:41)
--- NOTE | 2023-10-12 09:06 | PCM.NOTE ---
Date and Time: 10/12/23 0900 Subjective Assessment: 10/11/23 is a 58 year old female with PMHX of HTN, HLP, Elida pouch and self- caths, and depression/anxiety. She was admitted on 10/10 with c/o diarrhea x 1 week. She has chills but no fever. No dysuria, hematochezia, black stools. 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 She reports she went to her PCP and had lab drawn and saw lactic acid was high and then IVF were given. She came in to the ER because she was not better and feeling weak. Today she reports she is starting to feel better. She reports no loose stools since . She continues to have some abd cramping. Carbon dioxide improved and now 18 with bicarb gtt. Will transition to regular diet today. If sxs and labs continue to improved most likely to d/c tomorrow. She denies CP, SOB, N/V. 10/12/23 Pt reports she is unsure how she feels today. She explained she had 3 episodes of diarrhea last night. CO2 continue to be at 18. She did not want an IV restarted yesterday so bicarb changed to oral. Pt also reported she was drinking well. Discussed with nursing that t does need an IV today so that bicarb gtt and IVF can be restarted. BP elevated and home BP meds increased. Pt reports her BP is only elevated in the hospital not at home. Will most likley need incerased dose of meds at d/c and can f/u OP with PCP. She denies Cp, SOB, abd. pain, N/V. - Review of Systems Constitutional: No Fever, No Chills Eyes: No Symptoms Ears, Nose, & Throat: No Symptoms Respiratory: No Cough, No Short Of Breath Cardiac: No Chest Pain, No Edema, No Syncope Abdominal/Gastrointestinal: Diarrhea, No Abdominal Pain, No Nausea, No Vomiting Genitourinary Symptoms: No Dysuria Musculoskeletal: No Back Pain, No Neck Pain Skin: No Rash Neurological: No Dizziness, No Focal Weakness, No Sensory Changes Psychological: No Symptoms Endocrine: No Symptoms Hematologic/Lymphatic: No Symptoms Immunological/Allergic: No Symptoms Objective Exam General Appearance: no apparent distress, alert Neurologic Exam: alert, oriented x 3, cooperative, normal mood/affect, nml cerebellar function, sensation nml, No motor deficits Skin Exam: normal color, warm, dry Eye Exam: PERRL, EOMI, eyes nml inspection Ears, Nose, Throat Exam: normal ENT inspection, pharynx normal, moist mucous membranes Neck Exam: normal inspection, non-tender, supple, full range of motion Respiratory Exam: normal breath sounds, lungs clear, No respiratory distress Cardiovascular Exam: regular rate/rhythm, normal heart sounds Gastrointestinal/Abdomen Exam: soft, No tenderness, No mass Extremity Exam: normal inspection, normal range of motion Back Exam: normal inspection, normal range of motion, No CVA tenderness, No vertebral tenderness Pelvic Exam: deferred Rectal Exam: deferred Objective Data Vital Signs: Vital Signs - 24 hr Temp Pulse Resp BP Pulse Ox 10/12/23 06:59 98.0 F 78 17 227/104 99 10/12/23 04:00 97.3 F 76 17 205/79 93 L 10/12/23 00:00 98.6 F 71 20 142/76 93 L 10/11/23 20:00 96.6 F 71 17 191/87 97 10/11/23 16:00 97.7 F 63 18 162/100 99 10/11/23 12:00 97 F 76 17 190/99 96 Pain Assessment - Last Documented Pain Intensity 0 Intake and Output: Intake & Output 10/09/23 10/10/23 10/11/23 10/12/23 11:59 11:59 11:59 11:59 Intake Total 1743 1330 Balance 1743 1330 Weight 85 kg Lab Results: Lab Results-Last 24 Hours 10/12/23 10/12/23 10/12/23 Range/Units 05:30 05:30 05:30 WBC 8.0 (4.0-10.5) x10^3/uL RBC 4.09 L (4.1-5.4) x10^6/uL Hgb 12.0 (12.0-16.0) g/dL Hct 35.6 (35-47) % MCV 87.0 (78-100) fL MCH 29.3 (26-32) pg MCHC 33.7 (32-36) g/dL RDW 13.9 (11.5-14.0) % Plt Count 242 D (150-450) x10^3/uL MPV 10.4 (7.5-11.0) fL Sodium 141 (135-145) mmol/L Potassium 3.7 (3.5-5.1) mmol/L Chloride 114 H (98-107) mmol/L Carbon Dioxide 18 L (22-30) mmol/L Anion Gap 12.4 (5-15) MEQ/L BUN 11 (7-17) mg/dL Creatinine 0.89 (0.52-1.04) mg/dL Estimated GFR 75.1 ML/MIN Glucose 94 (74-106) mg/dL Calcium 9.1 (8.4-10.2) mg/dL Magnesium 1.2 L (1.6-2.3) mg/dL Total Bilirubin 0.40 (0.2-1.3) mg/dL AST 23 (14-36) U/L ALT 12 (0-35) U/L Alkaline Phosphatase 79 (38-126) U/L Serum Total Protein 6.4 (6.3-8.2) g/dL Albumin 3.4 L (3.5-5.0) g/dL Assessment/Plan (1) Diarrhea Current Visit: Yes Status: Acute Code(s): R19.7 - DIARRHEA, UNSPECIFIED (2) Acute metabolic acidosis Current Visit: Yes Status: Acute Code(s): E87.21 - ACUTE METABOLIC ACIDOSIS (3) Anemia Current Visit: Yes Status: Acute Qualifiers: Anemia type: unspecified type Qualified Code(s): D64.9 - Anemia, unspecified Code(s): D64.9 - ANEMIA, UNSPECIFIED (4) Dehydration Current Visit: Yes Status: Acute Code(s): E86.0 - DEHYDRATION (5) Hypokalemia Current Visit: Yes Status: Acute Code(s): E87.6 - HYPOKALEMIA (6) Hypertension Current Visit: No Status: Acute Code(s): I10 - ESSENTIAL (PRIMARY) HYPERTENSION (7) Weakness Current Visit: Yes Status: Acute Code(s): R53.1 - WEAKNESS (8) Hypomagnesemia Current Visit: Yes Status: Acute Assessment & Plan: (1) Diarrhea Current Visit: Yes Status: Acute Assessment & Plan: - Diarrhea - watery, no pain nor blood. 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 - stools studies sent - No anti-diarrhea until infection can be ruled out. - No recent travel, no new foods, no new medications. - Eosinophils elevated - Acidophilus 10/11 - BRAT diet - stool studies still pending - 3 episodes of diarrhea last night per pt Code(s): R19.7 - DIARRHEA, UNSPECIFIED (2) Acute metabolic acidosis Current Visit: Yes Status: Acute Assessment & Plan: - 2:2 diarrhea - bicarb gtt- continue - Carbon dioxide 18- improved, trend 10/11 - Pt lost IV yesterday and refused another IV- stated she was drinking enough - CO2 18 - She has 3 episodes of diarrhea last night - will restart IV and bicarb gtt Code(s): E87.21 - ACUTE METABOLIC ACIDOSIS (3) Anemia Current Visit: Yes Status: Acute Qualifiers: Anemia type: unspecified type Qualified Code(s): D64.9 - Anemia, unspecified Assessment & Plan: - Hgb 10.4 - F/U OP for further workup and labs - denies hematochezia or dark stools - no previous hx oer pt - No longer has menstrual cycle. 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 - stools studies pending. - No anti-diarrhea until infection can be ruled out. Code(s): E86.0 - DEHYDRATION (5) Hypokalemia Current Visit: Yes Status: Acute Assessment & Plan: - K+ 3.4 replaced, trend 10/11 - resolved Code(s): E87.6 - HYPOKALEMIA (6) Hypertension Current Visit: No Status: Acute Assessment & Plan: - acute on chronic - Resume home meds. Monitor BP and adjust as needed. - Hydralizine PRN 10/11 - Home meds increased - most likely will need to d/c with increased dose of meds and f/u with PCP OP Code(s): I10 - ESSENTIAL (PRIMARY) HYPERTENSION (7) Weakness Current Visit: Yes Status: Acute Assessment & Plan: - Nurses to assist pt as ther is no PT on the weekends - Improving with IVF 10/11 - improved - per PCT she was able to get up and shower by herself yesterday without any assistance. Code(s): R53.1 - WEAKNESS (8) Hypomagnesemia Current Visit: Yes Status: Acute Assessment & Plan: - Mg+ 1.1- replaced 10/11 - Mg+ 1.2 replaced VTE: Heparin PPI: Protonix Next of Kin: Meredith Olsen [phone] Code status: Full D/C plan: tomorrow Code(s): E83.42 - HYPOMAGNESEMIA
[2023-10-12] MEDS: Sodium Bicarbonate 50 MEQ/50 ML VIAL*** 150 MEQ in Dextrose 5%/Water IV Soln. 1000 ML 1... IV SCH (12:59)
[2023-10-12] MEDS: TYLENOL 325 MG PO PRN (19:51)
--- NOTE | 2023-10-13 05:07 | PCM.NOTE ---
Date and Time: 10/13/23 0502 Subjective Assessment: 58 year old female with a pmhx of HTN, HLP, [place] pouch and self-caths, and depression/anxiety admitted on 10/10 with c/o diarrhea x 1 week after presenting to ED under the advisement of her PCP Miriam Williamson due to multiple electrolyte imbalances as well as lactic acidosis. Patient did receive IVF as OP with no improvement. During hospital course patient has received acidophilus, anti- emetics, IV bicarb, potassium, and magnesium replenishment, as well as increased dosing of her home blood pressure medications due to elevated BP. Patient has continued to have diarrheal episodes with the advancement to regular diet. She is now placed on BRAT diet. Stool studies are pending. Lab values are stabilizi ng. Objective Data Vital Signs: Vital Signs - 24 hr Temp Pulse Resp BP Pulse Ox 10/13/23 04:00 97.2 F 65 20 176/74 97 10/13/23 00:00 97.7 F 73 19 146/64 96 10/12/23 20:00 96.8 F 64 20 195/85 95 10/12/23 16:00 97.1 F 69 18 184/76 96 10/12/23 11:41 97.9 F 79 20 160/94 98 10/12/23 06:59 98.0 F 78 17 227/104 99 Pain Assessment - Last Documented Pain Intensity 0 Pain Scale Used 0-10 Pain Scale Intake and Output: Intake & Output 10/10/23 10/11/23 10/12/23 10/13/23 11:59 11:59 11:59 11:59 Intake Total 1743 1450 3279 Balance 1743 1450 3279 Weight 85 kg Lab Results: Lab Results-Last 24 Hours 10/12/23 10/12/23 10/12/23 Range/Units 05:30 05:30 05:30 WBC 8.0 (4.0-10.5) x10^3/uL RBC 4.09 L (4.1-5.4) x10^6/uL Hgb 12.0 (12.0-16.0) g/dL Hct 35.6 (35-47) % MCV 87.0 (78-100) fL MCH 29.3 (26-32) pg MCHC 33.7 (32-36) g/dL RDW 13.9 (11.5-14.0) % Plt Count 242 D (150-450) x10^3/uL MPV 10.4 (7.5-11.0) fL Sodium 141 (135-145) mmol/L Potassium 3.7 (3.5-5.1) mmol/L Chloride 114 H (98-107) mmol/L Carbon Dioxide 18 L (22-30) mmol/L Anion Gap 12.4 (5-15) MEQ/L BUN 11 (7-17) mg/dL Creatinine 0.89 (0.52-1.04) mg/dL Estimated GFR 75.1 ML/MIN Glucose 94 (74-106) mg/dL Calcium 9.1 (8.4-10.2) mg/dL Magnesium 1.2 L (1.6-2.3) mg/dL Total Bilirubin 0.40 (0.2-1.3) mg/dL AST 23 (14-36) U/L ALT 12 (0-35) U/L Alkaline Phosphatase 79 (38-126) U/L Serum Total Protein 6.4 (6.3-8.2) g/dL Albumin 3.4 L (3.5-5.0) g/dL Assessment/Plan (1) Diarrhea Current Visit: Yes Status: Acute Assessment & Plan: - Diarrhea - watery, no pain nor blood. 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 - stools studies sent - No anti-diarrhea until infection can be ruled out. - No recent travel, no new foods, no new medications. - Eosinophils elevated - Acidophilus 10/11 - BRAT diet - stool studies still pending - 3 episodes of diarrhea last night per pt Code(s): R19.7 - DIARRHEA, UNSPECIFIED (2) Acute metabolic acidosis Current Visit: Yes Status: Acute Assessment & Plan: - 2:2 diarrhea - bicarb gtt- continue - Carbon dioxide 18- improved, trend 10/11 - Pt lost IV yesterday and refused another IV- stated she was drinking enough - CO2 18 - She has 3 episodes of diarrhea last night - will restart IV and bicarb gtt Code(s): E87.21 - ACUTE METABOLIC ACIDOSIS (3) Anemia Current Visit: Yes Status: Acute Qualifiers: Anemia type: unspecified type Qualified Code(s): D64.9 - Anemia, unspecified Assessment & Plan: - Hgb 10.4 - F/U OP for further workup and labs - denies hematochezia or dark stools - no previous hx oer pt - No longer has menstrual cycle. 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 - stools studies pending. - No anti-diarrhea until infection can be ruled out. Code(s): E86.0 - DEHYDRATION (5) Hypokalemia Current Visit: Yes Status: Acute Assessment & Plan: Assessment & Plan: - K+ 3.4 replaced, trend 10/11 - resolved Code(s): E87.6 - HYPOKALEMIA (6) Hypomagnesemia Current Visit: Yes Status: Acute Assessment & Plan: - Mg+ 1.1- replaced 10/11 - Mg+ 1.2 replaced Code(s): E83.42 - HYPOMAGNESEMIA (7) Weakness Current Visit: Yes Status: Acute Assessment & Plan: - Nurses to assist pt as ther is no PT on the weekends - Improving with IVF 10/11 - improved - per PCT she was able to get up and shower by herself yesterday without any assistance. Code(s): R53.1 - WEAKNESS (8) Hypertension Current Visit: No Status: Acute Assessment & Plan: - acute on chronic - Resume home meds. Monitor BP and adjust as needed. - Hydralizine PRN 10/11 - Home meds increased - most likely will need to d/c with increased dose of meds and f/u with PCP OP VTE: Heparin PPI: Protonix Next of Kin: Meredith Olsen [phone] Code status: Full D/C plan: tomorrow Code(s): I10 - ESSENTIAL (PRIMARY) HYPERTENSION
[2023-10-13 05:20] LABS: Hematocrit 35.2 % (35-47); Hemoglobin 11.8 g/dL (12.0-16.0); Mean Cell Volume 86.3 fL (78-100); Mean Corpuscular Hemoglobin 28.9 pg (26-32); Mean Corpuscular Hgb Concent. 33.5 g/dL (32-36); Mean Platelet Volume 10.8 fL (7.5-11.0); Platelet Count 224 x10^3/uL (150-450); Red Blood Count 4.08 x10^6/uL (4.1-5.4); Red Cell Distribution Width 13.5 % (11.5-14.0)
[2023-10-13 06:04] LABS: ALBUMIN 3.4 g/dL (3.5-5.0); ANION GAP 9.5 MEQ/L (5-15); BILIRUBIN,TOTAL 1.1 mg/dL (0.2-1.3); Calcium 8.6 mg/dL (8.4-10.2); Creatinine 1 0.81 mg/dL (0.52-1.04); EST GLOMERULAR FILTRATION RATE 84.1 ML/MIN; Potassium 3.2 mmol/L (3.5-5.1); Total Protein 6.3 g/dL (6.3-8.2)
[2023-10-13] MEDS: Magnesium 1 Gm / 100 Ml D5W*** 100 ML IV ONE (06:34)
[2023-10-13] MEDS: Klor Con PO SCH (09:19)
[2023-10-13] MEDS: MAGNESIUM SULF 2 G/50 ML BAG 2 GM/50 ML PIGGYBACK IV ONE (09:19)
[2023-10-13 12:44] VITALS: RESP 17; O2SAT 99
--- NOTE | 2023-10-13 16:00 | PCM.DS ---
Discharge Summary Date of Admission: 10/10/23 18:54 Date of Discharge: 10/13/23 Admitting Physician: RUPAL DELGADO DO Primary Care Provider: HAMIDA WILLIAMSON Allergies Allergies adhesive tape Allergy (Verified 10/10/23 14:49) cephalexin [From Keflex] Allergy (Verified 10/10/23 14:49) Hospital Summary - Hospital Course Hospital Course: 58 year old female with a pmhx of HTN, HLP, [place] pouch and self-caths, and depression/anxiety admitted on 10/10 with c/o diarrhea x 1 week after presenting to ED under the advisement of her PCP Hamida Williamson due to multiple electrolyte imbalances as well as lactic acidosis. Patient did receive IVF as OP with no improvement. During hospital course patient has received acidophilus, anti- emetics, IV bicarb, potassium, and magnesium replenishment, as well as increased dosing of her home blood pressure medications due to elevated BP. No longer having diarrhea. Electrolytes now WNL. Patient now tolerating a regular diet. Advised patient to keep BP log as blood pressure medications have been adjusted. She will need follow up with PCP in a few days to recheck labs. Discharge Note New Diagnosis: Acute metabolic acidosis secondary to diarrhea New Medications: magnesium/potassium/protonix/probiotic -- losartan/metoprolol increased Follow Up: pcp Latest Assessment & Plan 1) Diarrhea Current Visit: Yes Status: Acute Assessment & Plan: - Diarrhea - watery, no pain nor blood. 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 - stools studies sent - No anti-diarrhea until infection can be ruled out. - No recent travel, no new foods, no new medications. - Eosinophils elevated - Acidophilus 10/11 - BRAT diet - stool studies still pending - 3 episodes of diarrhea last night per pt 10/12: -Resolved Code(s): R19.7 - DIARRHEA, UNSPECIFIED (2) Acute metabolic acidosis Current Visit: Yes Status: Acute Assessment & Plan: - 2:2 diarrhea - bicarb gtt- continue - Carbon dioxide 18- improved, trend 10/11 - Pt lost IV yesterday and refused another IV- stated she was drinking enough - CO2 18 - She has 3 episodes of diarrhea last night - will restart IV and bicarb gtt 10/12: -Resolved Code(s): E87.21 - ACUTE METABOLIC ACIDOSIS (3) Anemia Current Visit: Yes Status: Acute Qualifiers: Anemia type: unspecified type Qualified Code(s): D64.9 - Anemia, unspecified Assessment & Plan: - Hgb 10.4 - F/U OP for further workup and labs - denies hematochezia or dark stools - no previous hx oer pt - No longer has menstrual cycle. 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 - stools studies pending. - No anti-diarrhea until infection can be ruled out. 10/12: -Resolved, tolerating a regular diet Code(s): E86.0 - DEHYDRATION (5) Hypokalemia Current Visit: Yes Status: Acute Assessment & Plan: Assessment & Plan: - K+ 3.4 replaced, trend 10/11 - resolved 10/12: -Resolved, will send home with 5 days of oral potassium, PCP to recheck this week Code(s): E87.6 - HYPOKALEMIA (6) Hypomagnesemia Current Visit: Yes Status: Acute Assessment & Plan: - Mg+ 1.1- replaced 10/11 - Mg+ 1.2 replaced 10/12: -Replenished, will send home on magnesium, advised PCP follow up this week with labs Code(s): E83.42 - HYPOMAGNESEMIA (7) Weakness Current Visit: Yes Status: Acute Assessment & Plan: - Nurses to assist pt as ther is no PT on the weekends - Improving with IVF 10/11 - improved - per PCT she was able to get up and shower by herself yesterday without any assistance. Code(s): R53.1 - WEAKNESS (8) Hypertension Current Visit: No Status: Acute Assessment & Plan: - acute on chronic - Resume home meds. Monitor BP and adjust as needed. - Hydralizine PRN 10/11 - Home meds increased - most likely will need to d/c with increased dose of meds and f/u with PCP OP I spent 35 minutes [id number] with the patient on the day of discharge pe rforming discharge exam, discussing hospital stay and discharge instructions with patient and caregivers, preparation of discharge records, prescriptions & referral forms and addressing any questions/concerns the patient had as documented above. - Vitals & Intake/Output Vital Signs: Vital Signs Temperature 97.8 F 10/13/23 12:00 Pulse Rate 65 10/13/23 12:00 Respiratory Rate 17 10/13/23 12:00 Blood Pressure 154/96 10/13/23 12:00 O2 Sat by Pulse Oximetry 99 10/13/23 12:00 Intake & Output: Intake & Output 10/11/23 10/12/23 10/13/23 10/14/23 11:59 11:59 11:59 11:59 Intake Total 1743 1450 3759 540 Balance 1743 1450 3759 540 Weight 85 kg - Lab Result Diagrams: 10/13/23 04:56 10/13/23 14:30 Lab Results-Last 24 Hrs: Lab Results-Last 24 Hours 10/13/23 10/13/23 10/13/23 Range/Units 04:56 04:56 04:56 WBC 7.0 (4.0-10.5) x10^3/uL RBC 4.08 L (4.1-5.4) x10^6/uL Hgb 11.8 L (12.0-16.0) g/dL Hct 35.2 (35-47) % MCV 86.3 (78-100) fL MCH 28.9 (26-32) pg MCHC 33.5 (32-36) g/dL RDW 13.5 (11.5-14.0) % Plt Count 224 (150-450) x10^3/uL MPV 10.8 (7.5-11.0) fL Sodium 138 (135-145) mmol/L Potassium 3.2 L (3.5-5.1) mmol/L Chloride 100 D (98-107) mmol/L Carbon Dioxide 32 H (22-30) mmol/L Anion Gap 9.5 (5-15) MEQ/L BUN 9 (7-17) mg/dL Creatinine 0.81 (0.52-1.04) mg/dL Estimated GFR 84.1 ML/MIN Glucose 104 (74-106) mg/dL Calcium 8.6 (8.4-10.2) mg/dL Magnesium 1.0 L* (1.6-2.3) mg/dL Total Bilirubin 1.10 (0.2-1.3) mg/dL AST 24 (14-36) U/L ALT 11 (0-35) U/L Alkaline Phosphatase 62 (38-126) U/L Serum Total Protein 6.3 (6.3-8.2) g/dL Albumin 3.4 L (3.5-5.0) g/dL 10/13/23 10/13/23 10/13/23 Range/Units 10:20 14:30 14:30 WBC (4.0-10.5) x10^3/uL RBC (4.1-5.4) x10^6/uL Hgb (12.0-16.0) g/dL Hct (35-47) % MCV (78-100) fL MCH (26-32) pg MCHC (32-36) g/dL RDW (11.5-14.0) % Plt Count (150-450) x10^3/uL MPV (7.5-11.0) fL Sodium (135-145) mmol/L Potassium 3.2 L 3.7 (3.5-5.1) mmol/L Chloride (98-107) mmol/L Carbon Dioxide (22-30) mmol/L Anion Gap (5-15) MEQ/L BUN (7-17) mg/dL Creatinine (0.52-1.04) mg/dL Estimated GFR ML/MIN Glucose (74-106) mg/dL Calcium (8.4-10.2) mg/dL Magnesium 1.9 (1.6-2.3) mg/dL Total Bilirubin (0.2-1.3) mg/dL AST (14-36) U/L ALT (0-35) U/L Alkaline Phosphatase (38-126) U/L Serum Total Protein (6.3-8.2) g/dL Albumin (3.5-5.0) g/dL Micro Results-Entire Visit: Microbiology 10/10/23 15:54 Blood Culture - Preliminary Blood 10/10/23 16:08 Blood Culture - Preliminary Blood 10/10/23 04:13 - Final Stool Not Reportable - Final Not Reportable - Final Not Reportable Stool Culture Organism Suscept - Final Not Reportable - Final Not Reportable - Final Not Reportable - Final Not Reportable Stool Culture Organism Suscept - Final Not Reportable 10/10/23 02:32 Ova and Parasite Result 1 - Final Stool Not Reportable Ova and Parasite Result 2 - Final Not Reportable Ova and Parasite Result 3 - Final Not Reportable Ova and Parasite Result 4 - Final Not Reportable Antimicrobic Susceptibility - Final Not Reportable Discharge Exam General Appearance: no apparent distress Neurologic Exam: alert, oriented x 3, cooperative Eye Exam: PERRL Ears, Nose, Throat Exam: normal ENT inspection Neck Exam: normal inspection Respiratory Exam: normal breath sounds, lungs clear Cardiovascular Exam: regular rate/rhythm, normal heart sounds Gastrointestinal/Abdomen Exam: soft, normal bowel sounds Pelvic Exam: deferred Rectal Exam: deferred Back Exam: normal inspection Extremity Exam: normal inspection Skin Exam: normal color Final Diagnosis/Problem List - Final Discharge Diagnosis/Problem (1) Acute metabolic acidosis Current Visit: Yes Status: Acute Code(s): E87.21 - ACUTE METABOLIC ACIDOSIS (2) Diarrhea Current Visit: Yes Status: Acute Code(s): R19.7 - DIARRHEA, UNSPECIFIED (3) Anemia Current Visit: Yes Status: Acute Code(s): D64.9 - ANEMIA, UNSPECIFIED (4) Dehydration Current Visit: Yes Status: Acute Code(s): E86.0 - DEHYDRATION (5) Hypokalemia Current Visit: Yes Status: Acute Code(s): E87.6 - HYPOKALEMIA (6) Hypomagnesemia Current Visit: Yes Status: Acute Code(s): E83.42 - HYPOMAGNESEMIA (7) Weakness Current Visit: Yes Status: Acute Code(s): R53.1 - WEAKNESS (8) Hypertension Current Visit: No Status: Acute Code(s): I10 - ESSENTIAL (PRIMARY) HYPERTENSION - Discharge Disposition: Home, Self-Care Condition: Stable Prescriptions: New Lactobacillus Acidophilus [Acidophilus TABLET] 1 tab PO DAILY 30 Days #30 tablet Losartan Potassium 50 mg [Cozaar 50 MG] 50 mg PO DAILY 30 Days #30 tablet Magnesium Oxide 400 mg [Mag-Ox 400] 400 mg PO DAILY 14 Days #14 tablet Potassium Chloride 20 meq PO DAILY 5 Days #5 tablet PANTOPRAZOLE 40 mg Tablet [Protonix 40MG Tablet] 40 mg PO DAILY 30 Days #30 tablet Metoprolol Succinate 50 mg [Toprol Xl 50 MG] 50 mg PO DAILY 30 Days #30 tablet Continue Duloxetine HCl [Cymbalta] 60 mg PO DAILY ALPRAZolam 0.25 MG [xanAX 0.25 MG] 0.25 mg PO TID Clonidine HCl 0.1 mg [Clonidine 0.1 mg Tablet] 0.1 mg PO BID Bupropion HCl Xl 150 mg [Wellbutrin XL 150 MG] 150 mg PO DAILY Discontinued Losartan Potassium 50 mg [Cozaar 50 MG] 50 mg PO DAILY 7 Days #7 tablet Metoprolol Succinate 25 mg Xl* [Toprol-Xl 25MG Tablets] 25 mg PO DAILY Follow up with: HAMIDA WILLIAMSON NP [Primary Care Provider] - (Please make appointment for this week, she will need labs to check electrolytes)
[2023-10-13 16:45] VITALS: BP 184/87; PULSE 64; TEMP 96.7
== END 2023-10-13 17:45 | disposition home or self-care (01) ==
LOC: ED 14:26 → MED SURG 18:54
PROVIDERS: ADMIT Internal Medicine; ATTEND Internal Medicine
DX: E87.21 Acute metabolic acidosis (principal); R19.7 Diarrhea, unspecified; D64.9 Anemia, unspecified; E86.0 Dehydration; E87.6 Hypokalemia; E83.42 Hypomagnesemia; E78.5 Hyperlipidemia, unspecified; R53.1 Weakness; I10 Essential (primary) hypertension; Z79.899 Other long term (current) drug therapy; Z20.828 Contact with and (suspected) exposure to other viral communicable diseases
CPT/HCPCS: 36415; 80053; 82805; 83605; 83735; 84132; 85025; 85027; 87040; 87045; 87046; 87177; 87209; 87328; 87329; 87427; 96360; 96361; 99284; Q3014; 93268; G0378; J1644; J3475; A9270-GY

== ENCOUNTER 2024-06-03 14:46 | Emergency (ER) | payer BC ==
[2024-06-03 15:23] VITALS: TEMP 98.3; O2SAT 99
[2024-06-03] MEDS ORDERED: CLONIDINE 0.1 MG TABLET ONE ×2 (15:31→16:22)
[2024-06-03 15:45] LABS: Absolute Neutrophil Ct (ANC) 4.67 x10^3/uL (1.56-6.13); BASOPHIL % 0.6 % (0.1-1.2); Basophil (Absolute #) 0.04 x10^3/uL (0.01-0.08); Eosinophil % 3.9 % (0.7-5.8); Eosinophil (Absolute #) 0.25 x10^3/uL (0.04-0.36); Hematocrit 37.3 % (34.1-44.9); Hemoglobin 12.1 g/dL (11.2-15.7); IMMATURE GRAN # 0.02 x10^3u/L (0.001-0.031); IMMATURE GRAN % 0.3 % (0.001-0.429); Lymphocyte (Absolute #) 1.15 x10^3/uL (1.18-3.74); Lymphocytes % 17.7 % (19.3-51.7); Mean Cell Volume 85.2 fL (79.4-94.8); Mean Corpuscular Hemoglobin 27.6 pg (25.6-32.2); Mean Corpuscular Hgb Concent. 32.4 g/dL (32.2-35.5); Mean Platelet Volume 9.9 fL (9.4-12.3); Monocyte (Absolute #) 0.35 x10^3/uL (0.24-0.86); Monocytes % 5.4 % (4.7-12.5); Neutrophil % 72.1 % (34.0-71.1); Platelet Count 230 x10^3/uL (182-369); Red Blood Count 4.38 x10^6/uL (3.93-5.22); Red Cell Distribution Width 14.2 % (11.7-14.4); White Blood Count 6.5 x10^3/uL (3.98-10.04)
[2024-06-03] MEDS: CLONIDINE 0.1 MG TABLET PO ONE ×3 (15:48→16:22)
[2024-06-03 16:08] LABS: ALBUMIN 4.2 g/dL (3.5-5.0); ANION GAP 13.5 MEQ/L (5-15); BILIRUBIN,TOTAL 0.5 mg/dL (0.2-1.3); Calcium 9.6 mg/dL (8.4-10.2); Creatinine 1 1.37 mg/dL (0.52-1.04); EST GLOMERULAR FILTRATION RATE 44.5 ML/MIN; Potassium 4.5 mmol/L (3.5-5.1); Total Protein 7.6 g/dL (6.3-8.2)
--- NOTE | 2024-06-03 16:31 | XRAY ---
Indication: Hypertension. Comparison: April 24, 2022 Portable chest again demonstrates normal heart and lungs. Bony thorax intact again with minimal degenerative changes. No new/acute findings.
--- NOTE | 2024-06-03 16:39 | ERPHSYRPT ---
- History of Present Illness Time Seen by Provider: 06/03/24 15:22 Patient Subjective Stated Complaint: Pt states she went to [employer] for one of her sessions and bp was 274/128 on their machine. She completed session and they rechecked bp manually and was found to be 240/122. Pt went to [facility] office and was instructed to come to ED. Triage Nursing Assessment: Pt alert and oriented x3. Respirations easy/nonlabored. Skin w/p/d. Pt denies any facial flushing, headache, vision changes, dizziness. States she forgot until triage that she was running late and forgot to take metoprolol and clonidine this morning. Physician History: 59-year-old female with history of hypertension, anxiety/depression was a therapy where her blood pressure was found to be elevated. Patient report her blood pressure is in 240s. On presentation in the ER patient reported for getting her morning meds. Patient denies any headache, blurry vision, difficulty speech, chest pain palpitations or shortness of breath. No abdominal pain nausea or vomiting. Patient is pretty much asymptomatic. Allergies/Adverse Reactions: adhesive tape Allergy (Verified 06/03/24 15:13) cephalexin [From Keflex] Allergy (Verified 06/03/24 15:13) Home Medications: ALPRAZolam 0.25 MG [xanAX 0.25 MG] 0.25 mg PO TID PRN 10/10/23 [History] Bupropion HCl Xl 150 mg [Wellbutrin XL 150 MG] 150 mg PO DAILY 10/10/23 [History] Clonidine HCl 0.1 mg [Clonidine 0.1 mg Tablet] 0.1 mg PO BID 10/10/23 [History] Duloxetine HCl [Cymbalta] 60 mg PO DAILY 10/10/23 [History] Hx Tetanus, Diphtheria Vaccination/Date Given: No Hx Influenza Vaccination/Date Given: No Hx Pneumococcal Vaccination/Date Given: No Travel Risk - International Travel Have you traveled outside of the country in past 3 weeks: No - Emerging Infectious Disease Are you exhibiting symptoms associated with any current EIDs: No Symptoms: Diarrhea - Review of Systems Constitutional: No Symptoms Eyes: No Symptoms Ears, Nose, & Throat: No Symptoms Respiratory: No Symptoms Cardiac: No Symptoms Abdominal/Gastrointestinal: No Symptoms Genitourinary Symptoms: No Symptoms Musculoskeletal: No Symptoms Skin: No Symptoms Neurological: No Symptoms Psychological: Anxiety, Depression Endocrine: No Symptoms Hematologic/Lymphatic: No Symptoms Immunological/Allergic: No Symptoms - Past Medical History Pertinent Past Medical History: Yes Neurological History: No Pertinent History ENT History: No Pertinent History Cardiac History: High Cholesterol, Hypertension Respiratory History: No Pertinent History Endocrine Medical History: No Pertinent History Musculoskeletal History: No Pertinent History GI Medical History: No Pertinent History History: Other Psycho-Social History: Depression Female Reproductive Disorders: No Pertinent History Other Medical History: [place] pouch - Past Surgical History Past Surgical History: Yes Neuro Surgical History: No Pertinent History Cardiac: No Pertinent History Respiratory: No Pertinent History Gastrointestinal: No Pertinent History Genitourinary: Other Female Surgical History: Dilation & Curettage, Section Other Surgical History: 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 mesh surgery 2011 Significant Family History: no pertinent family hx - Social History Smoking Status: Never smoker Exposure to second hand smoke: No Drug Use: none Patient Lives Alone: No - Social Determinants of Health Will the patient participate in the screening: Declined to provide - Nursing Vital Signs Nursing Vital Signs: Initial Vital Signs Temperature 98.3 F 06/03/24 15:06 Pulse Rate 80 06/03/24 15:06 Respiratory Rate 16 06/03/24 15:06 Blood Pressure 247/101 06/03/24 15:06 O2 Sat by Pulse Oximetry 99 06/03/24 15:06 Pain Scale Pain Intensity 0 - Physical Exam General Appearance: no apparent distress, alert Eye Exam: PERRL/EOMI Ears, Nose, Throat Exam: normal ENT inspection Neck Exam: normal inspection, non-tender, supple, full range of motion Respiratory Exam: normal breath sounds, lungs clear Cardiovascular Exam: regular rate/rhythm, normal heart sounds Gastrointestinal/Abdomen Exam: soft, normal bowel sounds, No tenderness Extremity Exam: normal inspection, normal range of motion Neurologic Exam: alert, oriented x 3, cooperative, account liaison hospice II-XII nml as tested, normal mood/affect, nml cerebellar function, nml station & gait, sensation nml, No motor deficits Skin Exam: normal color SpO2 Interpretation: normal SpO2: 99 O2 Delivery: Room Air - Course EKG Interpreted by Me: RATE (73), Sinus Rhythm, NORMAL AXIS, Right Bundle Branch Block, Non-specific ST Changes Ordered Tests: Active Orders 24 hr Category Date Time Status Administrative Support Technician STAT Care 06/03/24 15:23 Active EKG-ER Only STAT Care 06/03/24 15:22 Active IV Insertion STAT Care 06/03/24 15:22 Active CHEST 1 VIEW (PORTABLE) Stat Exams 06/03/24 15:22 Completed CBC W DIFF Stat Lab 06/03/24 15:46 Completed CMP Stat Lab 06/03/24 15:46 Completed NT PRO BNPII Stat Lab 06/03/24 15:46 Completed TROPONIN Q4H Lab 06/03/24 15:46 Completed TROPONIN Q4H Lab 06/03/24 19:30 Ordered TROPONIN Q4H Lab 06/03/24 23:30 Ordered Medication Summary Discontinued Medications Generic Name Dose Route Start Last Admin Trade Name Larisa PRN Reason Stop Dose Admin Clonidine 0.2 mg 06/03/24 15:23 06/03/24 15:48 Clonidine Hcl 0.1 Mg Tablet PO 06/03/24 15:24 Not Given STAT ONE Clonidine Confirm 06/03/24 15:31 Clonidine Hcl 0.1 Mg Tablet Administered 06/03/24 15:32 Dose 0.2 mg .ROUTE .STK-MED ONE Clonidine 0.1 mg 06/03/24 15:49 06/03/24 15:53 Clonidine Hcl 0.1 Mg Tablet PO 06/03/24 15:50 0.1 mg STAT ONE Administration Clonidine 0.1 mg 06/03/24 16:20 06/03/24 16:22 Clonidine Hcl 0.1 Mg Tablet PO 06/03/24 16:21 0.1 mg STAT ONE Administration Clonidine Confirm 06/03/24 16:22 Clonidine Hcl 0.1 Mg Tablet Administered 06/03/24 16:23 Dose 0.1 mg .ROUTE .STK-MED ONE Lab/Rad Data: Laboratory Result Diagrams 06/03/24 15:46 06/03/24 15:46 Laboratory Results 06/03/24 06/03/24 06/03/24 Range/Units 15:46 15:46 15:46 WBC 6.5 (3.98-10.04) x10^3/uL RBC 4.38 (3.93-5.22) x10^6/uL Hgb 12.1 (11.2-15.7) g/dL Hct 37.3 (34.1-44.9) % MCV 85.2 (79.4-94.8) fL MCH 27.6 (25.6-32.2) pg MCHC 32.4 (32.2-35.5) g/dL RDW 14.2 (11.7-14.4) % Plt Count 230 (182-369) x10^3/uL MPV 9.9 (9.4-12.3) fL Gran % 72.1 H (34.0-71.1) % Immature Gran % (Auto) 0.3 (0.001-0.429) % Nucleat RBC Rel Count 0.0 (0.00-0.2) % Eos # (Auto) 0.25 (0.04-0.36) x10^3/uL Immature Gran # (Auto) 0.02 (0.001-0.031) x10^3u/L Absolute Lymphs (auto) 1.15 L (1.18-3.74) x10^3/uL Absolute Monos (auto) 0.35 (0.24-0.86) x10^3/uL Absolute Nucleated RBC 0.00 (0.00-0.012) x10^3u/L Lymphocytes % 17.7 L (19.3-51.7) % Monocytes % 5.4 (4.7-12.5) % Eosinophils % 3.9 (0.7-5.8) % Basophils % 0.6 (0.1-1.2) % Absolute Granulocytes 4.67 (1.56-6.13) x10^3/uL Basophils # 0.04 (0.01-0.08) x10^3/uL Sodium 142 (135-145) mmol/L Potassium 4.5 (3.5-5.1) mmol/L Chloride 106 (98-107) mmol/L Carbon Dioxide 27 (22-30) mmol/L Anion Gap 13.5 (5-15) MEQ/L BUN 27 H (7-17) mg/dL Creatinine 1.37 H (0.52-1.04) mg/dL Estimated GFR 44.5 ML/MIN Glucose 228 H (74-106) mg/dL Calcium 9.6 (8.4-10.2) mg/dL Total Bilirubin 0.50 (0.2-1.3) mg/dL AST 28 (14-36) U/L ALT 21 (0-35) U/L Alkaline Phosphatase 72 (38-126) U/L Troponin I < 0.012 (0.000-0.033) ng/mL NT-Pro-B Natriuret Pep 2940 (<300) pg/mL Serum Total Protein 7.6 (6.3-8.2) g/dL Albumin 4.2 (3.5-5.0) g/dL - Progress Progress: improved Progress Note: 06/03/24 17:33 59-year-old is evaluated in the ER for hypertension with blood pressure in 200s at therapy. Patient did not take her home morning meds. She is given clonidine 0.1 initially followed by another 0.1 mg and blood pressure improved in 170s. She remained asymptomatic. The EKG is normal sinus rhythm with no ST elevation and negative troponins. Chest x-ray is negative, chemistries showed mild elevation in creatinine of 1.3 with a baseline of 1.1. Recommended increase hydration. Do not think patient needs to be admitted any further workup, recommended monitoring of blood pressure, medication compliant and outpatient follow-up. Discussed signs symptoms of worsening needing return to ER which she seems understanding. Stable for discharge. Counseled pt/family regarding: lab results, diagnosis, rad results Medical Desision Making - Diagnostic Testing Diagnostic test were ordered, analyzed, and reviewed by me: Yes Radiological Interpretation: Reviewed by me - Risk of complications The pt has a mod risk of morbidity or mortality based on: Need for prescription drug management - Departure Departure Disposition: Home Clinical Impression: Uncontrolled hypertension Condition: Stable Critical Care Time: No Referrals: HAMIDA SINCLAIR NP [Primary Care Provider] - Follow up with PCP 1 day Instructions: Malignant Hypertension (DC) Additional Instructions: Take low-salt diet, regular exercise, take your medications as recommended. Keep a log of your blood pressure and follow-up with PCP for reevaluation in next 2 to 3 days. Return to ER for persistent high blood pressure or if having headache, visual disturbance, chest pain palpitations or shortness of breath etc.
[2024-06-03 17:36] VITALS: BP 175/78; PULSE 59; RESP 20
== END 2024-06-03 17:43 | disposition home or self-care (01) ==
LOC: ED 14:46
DX: I10 Essential (primary) hypertension (principal); E78.5 Hyperlipidemia, unspecified; Z79.899 Other long term (current) drug therapy
CPT/HCPCS: 36415; 71045; 80053; 83880; 84484; 85025; 93005; 93041; 99284; 99285; A9270-GY

== ENCOUNTER 2024-06-04 10:11 | Emergency (ER) | payer BC ==
--- NOTE | 2024-06-04 10:23 | ERPHSYRPT ---
- History of Present Illness Time Seen by Provider: 06/04/24 10:22 Source: patient, family Exam Limitations: no limitations Physician History: This is a 59-year-old white female patient who drove herself into the hospital emergency department and is a patient of nurse practitioner Clay to be evaluated because of high blood pressure and left-sided sharp headache pain. She denies visual changes. There is made no changes in her speech. She denies chest pain. She denies shortness of breath. She has no abdominal pain. Patient was seen here in this emergency department less than 24 hours ago and I reviewed the lab results and interpreted them. She does not require any new lab workup. No CT scan of the head was performed at that time. Patient has a history of hypertension, anxiety, depression, hyperlipidemia. Yesterday, 06/03/2024, her systolic blood pressure was 240. Today, although improved, her systolic blood pressure measures 184 mmHg. Patient states that she is on metoprolol, clonidine and losartan. She states that she took her metoprolol and clonidine today as prescribed. Timing/Duration: today Severity: mild (To moderate) Associated Symptoms: headaches (Left side sharp pain), No nausea, No vomiting, No abdominal pain, No shortness of breath, No chest pain, No weakness Allergies/Adverse Reactions: adhesive tape Allergy (Verified 06/04/24 10:20) cephalexin [From Keflex] Allergy (Verified 06/04/24 10:20) Home Medications: ALPRAZolam 0.25 MG [xanAX 0.25 MG] 0.25 mg PO TID PRN 10/10/23 [History] Bupropion HCl Xl 150 mg [Wellbutrin XL 150 MG] 150 mg PO DAILY 10/10/23 [History] Clonidine HCl 0.1 mg [Clonidine 0.1 mg Tablet] 0.1 mg PO BID 10/10/23 [History] Duloxetine HCl [Cymbalta] 60 mg PO DAILY 10/10/23 [History] Hx Tetanus, Diphtheria Vaccination/Date Given: No Hx Influenza Vaccination/Date Given: No Hx Pneumococcal Vaccination/Date Given: No Travel Risk - International Travel Have you traveled outside of the country in past 3 weeks: No - Emerging Infectious Disease Are you exhibiting symptoms associated with any current EIDs: No Symptoms: Diarrhea - Review of Systems Constitutional: No Symptoms Eyes: No Symptoms Ears, Nose, & Throat: No Symptoms Respiratory: No Symptoms Cardiac: No Symptoms Abdominal/Gastrointestinal: No Symptoms Genitourinary Symptoms: No Symptoms Musculoskeletal: No Symptoms Skin: No Symptoms Neurological: No Dizziness, No Headache, No Speech Changes, No Vertigo Psychological: No Symptoms Endocrine: No Symptoms Hematologic/Lymphatic: No Symptoms Immunological/Allergic: No Symptoms All Other Systems: Reviewed and Negative - Past Medical History Pertinent Past Medical History: Yes Neurological History: No Pertinent History ENT History: No Pertinent History Cardiac History: High Cholesterol, Hypertension Respiratory History: No Pertinent History Endocrine Medical History: No Pertinent History Musculoskeletal History: No Pertinent History GI Medical History: No Pertinent History History: Other Psycho-Social History: Depression Female Reproductive Disorders: No Pertinent History Other Medical History: tomeka pouch - Past Surgical History Past Surgical History: Yes Neuro Surgical History: No Pertinent History Cardiac: No Pertinent History Respiratory: No Pertinent History Gastrointestinal: No Pertinent History Genitourinary: Other Female Surgical History: Dilation & Curettage, Section Other Surgical History: 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 mesh surgery 2011 Significant Family History: no pertinent family hx - Social History Smoking Status: Never smoker Exposure to second hand smoke: No Drug Use: none Patient Lives Alone: No - Social Determinants of Health Will the patient participate in the screening: Declined to provide - Nursing Vital Signs Nursing Vital Signs: Initial Vital Signs Temperature 98.4 F 06/04/24 10:22 Pulse Rate 58 L 06/04/24 10:22 Respiratory Rate 17 06/04/24 10:22 Blood Pressure 184/64 06/04/24 10:22 O2 Sat by Pulse Oximetry 99 06/04/24 10:22 Pain Scale Pain Intensity 5 - Physical Exam General Appearance: no apparent distress, alert, anxiety Eye Exam: PERRL/EOMI, eyes nml inspection Ears, Nose, Throat Exam: normal ENT inspection, moist mucous membranes Neck Exam: normal inspection, non-tender, supple, full range of motion Respiratory Exam: normal breath sounds, lungs clear, airway intact, No chest ten derness, No respiratory distress Cardiovascular Exam: regular rate/rhythm, normal heart sounds, normal peripheral pulses Gastrointestinal/Abdomen Exam: soft, normal bowel sounds, No tenderness Pelvic Exam: not done Rectal Exam: not done Back Exam: normal inspection, normal range of motion, No CVA tenderness, No vertebral tenderness Extremity Exam: normal inspection, normal range of motion, pelvis stable Neurologic Exam: alert, oriented x 3, cooperative, 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 QTc is 460) Ordered Tests: Active Orders 24 hr Category Date Time Status HEAD WITHOUT CONTRAST [CT] Stat Exams 06/04/24 10:49 Completed Medication Summary Discontinued Medications Generic Name Dose Route Start Last Admin Trade Name Larisa PRN Reason Stop Dose Admin Clonidine 0.1 mg 06/04/24 10:48 06/04/24 10:55 Clonidine Hcl 0.1 Mg Tablet PO 06/04/24 10:49 0.1 mg STAT ONE Administration Clonidine Confirm 06/04/24 10:54 Clonidine Hcl 0.1 Mg Tablet Administered 06/04/24 10:55 Dose 0.1 mg .ROUTE .STWelliko-MED ONE - Progress Progress: improved, re-examined Progress Note: 06/04/24 10:54 My medical decision making and the assignment of low to moderate complexity is based on review of the patient's past medical history, review the patient's medication list, reviewed patient drug allergy list, history present illness and physical findings on examination. The workup in this patient includes placement of intravenous line, CT scan of the head without contrast. I also reviewed the patient's emergency department visit from less than 24 hours ago. No additional lab work is necessary. Differential diagnosis includes but is not limited to hypertension, acute intracranial abnormality, anxiety/stress 06/04/24 11:[address] scan of the head without contrast was interpreted by the radiologist and I reviewed the impression. The impression states atrophy and degenerative micro was ischemia within normal limits. Near complete opacification of both mastoid air cells presumed to be inflammatory. Remaining CT scan of the head without contrast exam is negative. Counseled pt/family regarding: diagnosis, need for follow-up, rad results Medical Desision Making - Diagnostic Testing Diagnostic test were ordered, analyzed, and reviewed by me: Yes Radiological Interpretation: Reviewed by me, Teleradiologist Report - Risk of complications The pt has a mod risk of morbidity or mortality based on: Need for prescription drug management - Departure Departure Disposition: Home Clinical Impression: Hypertension, Dizziness, Mastoiditis Condition: Stable Critical Care Time: No Referrals: [facility] [Primary Care Provider] - Follow up/PCP as directed Additional Instructions: Drink plenty of fluids. Take your medications as prescribed. For the next 2 to 3 days keep a morning noon and night daily log of your blood pressure readings. Call your primary care provider today, 06/04/2024, to make arrangements to be evaluated on 06/07/2024 to make adjustments, if indicated, to your blood pressure medications. Prescriptions: Amoxicillin/Potassium Clav [Augmentin 500-125 Tablet] 1 each PO TID 7 Days #21 tablet Clindamycin HCl 150 mg [Cleocin 150 mg Capsule] 2 cap PO QID #56 cap
[2024-06-04 10:35] VITALS: TEMP 98.4
[2024-06-04] MEDS ORDERED: CLONIDINE 0.1 MG TABLET ONE (10:54)
[2024-06-04] MEDS: CLONIDINE 0.1 MG TABLET PO ONE (10:55)
--- NOTE | 2024-06-04 11:50 | XRAY ---
Indication: Hypertension. Left headache. Multiple contiguous axial images obtained through the head without contrast. Comparison: None Age-appropriate global atrophy with minimal periventricular degenerative micro-ischemia. No acute intracranial hemorrhage, abnormal extra-axial fluid collection, or mass effect. Fourth ventricle is midline without hydrocephalus. Bony calvarium intact. Mastoid air cells demonstrates near complete opacification, right greater than left presumed inflammatory. Visualized paranasal sinuses are clear. Impression: Atrophy and degenerative micro-ischemia within normal limits. Near complete opacification both mastoid air cells presumed inflammatory. Remaining CT head without contrast exam is negative.
[2024-06-04 12:12] VITALS: BP 160/78; PULSE 60; RESP 17; O2SAT 97
== END 2024-06-04 12:17 | disposition home or self-care (01) ==
LOC: ED 10:11
DX: I10 Essential (primary) hypertension (principal); R42 Dizziness and giddiness; H70.93 Unspecified mastoiditis, bilateral; R51.9 Headache, unspecified; E78.5 Hyperlipidemia, unspecified; Z79.899 Other long term (current) drug therapy
CPT/HCPCS: 70450; 99283; 99285; A9270-GY

== ENCOUNTER 2024-06-23 09:28 | Observation (INO) | payer BC ==
[2024-06-23 10:34] LABS: Absolute Neutrophil Ct (ANC) 7.21 x10^3/uL (1.56-6.13); BASOPHIL % 0.5 % (0.1-1.2); Basophil (Absolute #) 0.04 x10^3/uL (0.01-0.08); Eosinophil % 1.1 % (0.7-5.8); Hematocrit 33.3 % (34.1-44.9); Hemoglobin 10.9 g/dL (11.2-15.7); IMMATURE GRAN # 0.03 x10^3u/L (0.001-0.031); IMMATURE GRAN % 0.3 % (0.001-0.429); Lymphocyte (Absolute #) 0.56 x10^3/uL (1.18-3.74); Lymphocytes % 6.4 % (19.3-51.7); Mean Cell Volume 84.7 fL (79.4-94.8); Mean Corpuscular Hemoglobin 27.7 pg (25.6-32.2); Mean Corpuscular Hgb Concent. 32.7 g/dL (32.2-35.5); Monocyte (Absolute #) 0.77 x10^3/uL (0.24-0.86); Monocytes % 8.8 % (4.7-12.5); Neutrophil % 82.9 % (34.0-71.1); Platelet Count 223 x10^3/uL (182-369); Red Blood Count 3.93 x10^6/uL (3.93-5.22); White Blood Count 8.7 x10^3/uL (3.98-10.04)
--- NOTE | 2024-06-23 10:39 | XRAY ---
Indication: Dizziness. Aches. Comparison: June 03, 2024 Portable chest now demonstrates minimal left base subsegmental atelectasis/scarring. Remaining heart and lungs normal. Bony thorax intact again with degenerative changes. No acute findings.
[2024-06-23 10:51] LABS: ALBUMIN 3.7 g/dL (3.5-5.0); ANION GAP 12.9 MEQ/L (5-15); BILIRUBIN,TOTAL 0.6 mg/dL (0.2-1.3); Calcium 9.5 mg/dL (8.4-10.2); Creatinine 1 1.48 mg/dL (0.52-1.04); EST GLOMERULAR FILTRATION RATE 40.5 ML/MIN; Potassium 3.9 mmol/L (3.5-5.1); Total Protein 6.7 g/dL (6.3-8.2)
[2024-06-23 11:04] LABS: MAGNESIUM 1.9 mg/dL (1.6-2.3)
--- NOTE | 2024-06-23 11:24 | ERPHSYRPT ---
- History of Present Illness Time Seen by Provider: 06/23/24 10:26 Source: patient Exam Limitations: no limitations Patient Subjective Stated Complaint: pt c/o that off and on for the past 2 months she leans towards one side when she walks and gets off balance, pt has not spoken to her PCP about it but does have an appt tomorrow, pt c/o of her ears being "plugged" Triage Nursing Assessment: Pt brought self to the ER and walked slowly into the room, hypertensive, denies pain, pulses normal, skin n/w/d, no difficulty breathing, reports having a headache, denies N&V, doesn't appear to be in any distress Physician History: 59-year-old female with history of hypertension, hyperlipidemia, anxiety presented in the ER with complaints of high blood pressure, having headache and feeling dizzy. Patient reports she has been feeling off-and-on dizziness for the last couple of months where she has a tendency to lean on 1 side. Patient denies any numbness tingling or focal weakness. This off-balance things are intermittent and improve on its own. Does report plugging in the ears with some discomfort more in the left than the right. Earlier patient was at work and checked her blood pressure which was in 130s and later it was in 150s and she decided to be seen in the ER. Denies any chest pain palpitations or shortness of breath. Patient blood pressure currently during evaluation is 140/89. Her headache and dizziness is resolved. Allergies/Adverse Reactions: adhesive tape Allergy (Verified 06/23/24 09:41) cephalexin [From Keflex] Allergy (Verified 06/23/24 09:41) Home Medications: ALPRAZolam 0.25 MG [xanAX 0.25 MG] 0.25 mg PO TID PRN 10/10/23 [History] Bupropion HCl Xl 150 mg [Wellbutrin XL 150 MG] 150 mg PO DAILY 10/10/23 [History] Clonidine HCl 0.1 mg [Clonidine 0.1 mg Tablet] 0.1 mg PO BID 10/10/23 [History] Duloxetine HCl [Cymbalta] 60 mg PO DAILY 10/10/23 [History] Amlodipine Besylate 5 mg [Norvasc 5 mg] 5 mg PO BID 06/23/24 [History] Losartan Potassium 50 mg [Cozaar 50 MG] 100 mg PO DAILY 06/23/24 [History] Topiramate 50 mg PO BID 06/23/24 [History] Hx Tetanus, Diphtheria Vaccination/Date Given: No Hx Influenza Vaccination/Date Given: No Hx Pneumococcal Vaccination/Date Given: No Travel Risk - International Travel Have you traveled outside of the country in past 3 weeks: No - Emerging Infectious Disease Are you exhibiting symptoms associated with any current EIDs: No Symptoms: Diarrhea - Review of Systems Constitutional: No Symptoms Eyes: No Symptoms Ears, Nose, & Throat: Ear Pain Respiratory: No Symptoms Cardiac: No Symptoms Abdominal/Gastrointestinal: No Symptoms Genitourinary Symptoms: No Symptoms Musculoskeletal: No Symptoms Skin: No Symptoms Neurological: Dizziness, Headache Psychological: Anxiety Endocrine: No Symptoms Hematologic/Lymphatic: No Symptoms Immunological/Allergic: No Symptoms - Past Medical History Pertinent Past Medical History: Yes Neurological History: No Pertinent History ENT History: No Pertinent History Cardiac History: High Cholesterol, Hypertension Respiratory History: No Pertinent History Endocrine Medical History: No Pertinent History Musculoskeletal History: No Pertinent History GI Medical History: No Pertinent History History: Other Psycho-Social History: Depression Female Reproductive Disorders: No Pertinent History Other Medical History: tomeka pouch - Past Surgical History Past Surgical History: Yes Neuro Surgical History: No Pertinent History Cardiac: No Pertinent History Respiratory: No Pertinent History Gastrointestinal: No Pertinent History Genitourinary: Other Female Surgical History: Dilation & Curettage, Section Other Surgical History: 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 mesh surgery 2012 Significant Family History: no pertinent family hx - Social History Smoking Status: Never smoker Exposure to second hand smoke: No Drug Use: none Patient Lives Alone: No - Social Determinants of Health Will the patient participate in the screening: Yes Do you worry about a steady place to live?: No Do you have any problems with any of the following?: No known problems In the past 12 months,have you had to go without utilities?: No Transportation Issues: No Has anyone in your support network made you feel unsafe?: No Have you or anyone in your house had to go without enough: No - Nursing Vital Signs Nursing Vital Signs: Initial Vital Signs Temperature 97.6 F 06/23/24 09:36 Pulse Rate 69 12/11/24 09:36 Blood Pressure 160/104 06/23/24 09:36 O2 Sat by Pulse Oximetry 99 06/23/24 09:36 Pain Scale Pain Intensity 0 - Physical Exam General Appearance: no apparent distress, alert, anxiety Eye Exam: PERRL/EOMI Ears, Nose, Throat Exam: normal ENT inspection Neck Exam: normal inspection, non-tender, supple, full range of motion Respiratory Exam: normal breath sounds, lungs clear Cardiovascular Exam: regular rate/rhythm, normal heart sounds Gastrointestinal/Abdomen Exam: soft, normal bowel sounds, No tenderness Back Exam: normal inspection, normal range of motion Extremity Exam: normal inspection, normal range of motion Neurologic Exam: alert, oriented x 3, 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, 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, nml cerebellar function, nml station & gait, sensation nml, No normal mood/affect (Anxious), No motor deficits Skin Exam: normal color SpO2 Interpretation: normal SpO2: 99 O2 Delivery: Room Air - Course EKG Interpreted by Me: RATE (73), Sinus Rhythm, NORMAL AXIS, Right Bundle Branch Block, Non-specific ST Changes Ordered Tests: Active Orders 24 hr Category Date Time Status EKG-ER Only STAT Care 06/23/24 10:12 Active CHEST 1 VIEW (PORTABLE) Stat Exams 06/23/24 10:12 Completed HEAD WITHOUT CONTRAST [CT] Stat Exams 06/23/24 11:21 Completed MRA BRAIN WITHOUT CONTRAST [MRI] Stat Exams 06/23/24 13:34 Ordered MRA NECK WITHOUT CONTRAST [MRI] Stat Exams 06/23/24 13:34 Ordered MRI BRAIN W/O CONTRAST [MRI] Stat Exams 06/23/24 13:34 Ordered CBC W DIFF Stat Lab 06/23/24 10:30 Completed CMP Stat Lab 06/23/24 10:30 Completed MAGNESIUM Stat Lab 06/23/24 10:30 Completed NT PRO BNPII Stat Lab 06/23/24 10:30 Completed TROPONIN Q4H Lab 06/23/24 10:30 Completed TROPONIN Q4H Lab 06/23/24 13:41 Completed TROPONIN Q4H Lab 06/23/24 18:15 Ordered Transfer Order Routine Transfer 06/23/24 Ordered Lab/Rad Data: Laboratory Result Diagrams 06/23/24 10:30 06/23/24 10:30 Laboratory Results 06/23/24 06/23/24 06/23/24 Range/Units 13:41 10:30 10:30 WBC (3.98-10.04) x10^3/uL RBC (3.93-5.22) x10^6/uL Hgb (11.2-15.7) g/dL Hct (34.1-44.9) % MCV (79.4-94.8) fL MCH (25.6-32.2) pg MCHC (32.2-35.5) g/dL RDW (11.7-14.4) % Plt Count (182-369) x10^3/uL MPV (9.4-12.3) fL Gran % (34.0-71.1) % Immature Gran % (Auto) (0.001-0.429) % Nucleat RBC Rel Count (0.00-0.2) % Eos # (Auto) (0.04-0.36) x10^3/uL Immature Gran # (Auto) (0.001-0.031) x10^3u/L Absolute Lymphs (auto) (1.18-3.74) x10^3/uL Absolute Monos (auto) (0.24-0.86) x10^3/uL Absolute Nucleated RBC (0.00-0.012) x10^3u/L Lymphocytes % (19.3-51.7) % Monocytes % (4.7-12.5) % Eosinophils % (0.7-5.8) % Basophils % (0.1-1.2) % Absolute Granulocytes (1.56-6.13) x10^3/uL Basophils # (0.01-0.08) x10^3/uL Sodium 136 (135-145) mmol/L Potassium 3.9 (3.5-5.1) mmol/L Chloride 103 (98-107) mmol/L Carbon Dioxide 23 (22-30) mmol/L Anion Gap 12.9 (5-15) MEQ/L BUN 30 H (7-17) mg/dL Creatinine 1.48 H (0.52-1.04) mg/dL Estimated GFR 40.5 ML/MIN Glucose 164 H (74-106) mg/dL Calcium 9.5 (8.4-10.2) mg/dL Magnesium 1.9 (1.6-2.3) mg/dL Total Bilirubin 0.60 (0.2-1.3) mg/dL AST 20 (14-36) U/L ALT 14 (0-35) U/L Alkaline Phosphatase 71 (38-126) U/L Troponin I < 0.012 < 0.012 (0.000-0.033) ng/mL NT-Pro-B Natriuret Pep 1480 (<300) pg/mL Serum Total Protein 6.7 (6.3-8.2) g/dL Albumin 3.7 (3.5-5.0) g/dL 06/23/24 Range/Units 10:30 WBC 8.7 (3.98-10.04) x10^3/uL RBC 3.93 (3.93-5.22) x10^6/uL Hgb 10.9 L (11.2-15.7) g/dL Hct 33.3 L (34.1-44.9) % MCV 84.7 (79.4-94.8) fL MCH 27.7 (25.6-32.2) pg MCHC 32.7 (32.2-35.5) g/dL RDW 14.0 (11.7-14.4) % Plt Count 223 (182-369) x10^3/uL MPV 10.0 (9.4-12.3) fL Gran % 82.9 H (34.0-71.1) % Immature Gran % (Auto) 0.3 (0.001-0.429) % Nucleat RBC Rel Count 0.0 (0.00-0.2) % Eos # (Auto) 0.10 (0.04-0.36) x10^3/uL Immature Gran # (Auto) 0.03 (0.001-0.031) x10^3u/L Absolute Lymphs (auto) 0.56 L (1.18-3.74) x10^3/uL Absolute Monos (auto) 0.77 (0.24-0.86) x10^3/uL Absolute Nucleated RBC 0.00 (0.00-0.012) x10^3u/L Lymphocytes % 6.4 L (19.3-51.7) % Monocytes % 8.8 (4.7-12.5) % Eosinophils % 1.1 (0.7-5.8) % Basophils % 0.5 (0.1-1.2) % Absolute Granulocytes 7.21 H (1.56-6.13) x10^3/uL Basophils # 0.04 (0.01-0.08) x10^3/uL Sodium (135-145) mmol/L Potassium (3.5-5.1) mmol/L Chloride (98-107) mmol/L Carbon Dioxide (22-30) mmol/L Anion Gap (5-15) MEQ/L BUN (7-17) mg/dL Creatinine (0.52-1.04) mg/dL Estimated GFR ML/MIN Glucose (74-106) mg/dL Calcium (8.4-10.2) mg/dL Magnesium (1.6-2.3) mg/dL Total Bilirubin (0.2-1.3) mg/dL AST (14-36) U/L ALT (0-35) U/L Alkaline Phosphatase (38-126) U/L Troponin I (0.000-0.033) ng/mL NT-Pro-B Natriuret Pep (<300) pg/mL Serum Total Protein (6.3-8.2) g/dL Albumin (3.5-5.0) g/dL - Progress Progress: improved, re-examined Progress Note: 06/23/24 13:42 59-year-old is evaluated in ER for elevated blood pressure, feeling dizzy with lightheaded with some headache earlier prior to arrival. Patient also reported having symptoms of dizziness going on for the last 2 months. She does not have any focal neurodeficit. Patient EKG is sinus rhythm with right bundle branch block and no ST elevations. Negative initial troponins. Normal white count, does have CKD with a creatinine of 1.4 and a GFR of 40. Patient CT head showed hypoattenuation in the cerebellum. I have obtain [facility] neurology consult and with changes in the CT it seems old stroke and did not recommend any acute intervention but increasing dose of aspirin to 324 daily along with stroke workup including MRI/MRA. Patient cannot get contrast because of her low GFR. I have shared the results of workup with patient and recommended observation admission which she understands and agrees. Discussed with Dr. Torres and patient is being admitted. Discussed with Dr.: Other (Dr. Artis [facility] neurology, Dr. Torres hospitalist) Will see patient in: hospital (observation) Counseled pt/family regarding: lab results, diagnosis, need for follow-up, rad results Medical Desision Making - Discussion of managment Care discussed with:: specialist ([facility] neurology and Dr. Torres hospitalist) Reviewed:: Test results Agreed on:: Treatment plan, place in obs Will see patient: in hospital - Diagnostic Testing Diagnostic test were ordered, analyzed, and reviewed by me: Yes Radiological Interpretation: Reviewed by me - Risk of complications The pt has a high risk of morbidity or mortality based on: Decision regarding ho spitilization or escalation of hosp level of care - Departure Departure Disposition: Observation Clinical Impression: Dizziness, Uncontrolled hypertension, Stroke-like symptoms Condition: Stable Critical Care Time: No Referrals: [facility] NP [Primary Care Provider] - Follow up/PCP as directed
--- NOTE | 2024-06-23 12:13 | XRAY ---
Indication: Dizziness. Multiple contiguous images obtained through the head without contrast. Comparison: June 04, 2024 Again age-appropriate global atrophy, minimal periventricular degenerative micro-ischemia bilaterally, and remote lacunar infarct left thalamus. Inferior left cerebellum demonstrates new 1.6 x 2.3 x 1.0 cm focus of hypoattenuation, possible ischemia in right clinical setting. No acute intracranial hemorrhage, abnormal extra-axial fluid collection, or mass effect. Fourth ventricle is midline without hydrocephalus. Bony calvarium intact. Impression: 1. New inferior left cerebellum focus of hypoattenuation. Rule out ischemia. MRI may yield further information. 2. Again atrophy and degenerative micro-ischemia within normal limits. Stable remote left thalamic remote lacunar infarct.
--- NOTE | 2024-06-23 13:36 | PCM.CONS ---
History of Present Illness - Neuro Consultation Date of Consultation Date: 06/23/24 ED Arrival Date & Time: 06/23/24 09:28 Providers: Attending Provider: ED Provider: SIRIA CEDENO MD Consulting Provider: HELEN MOODY MD cc:: The requesting physician will be sent a copy of the consult. - History of Present Illness HPI: 59 year old woman with HTN, DLD, CKD. She presents with feeling of being off-balance while walking, leaning to the left, since 9:15am this morning. This has also happened to her several other times over the past couple weeks or months. Today she fell due to the feeling of imbalance. Denies nausea or vomiting. She also reports memory and cognitive issues over the past year. Takes aspirin 81mg daily. Not a candidate for IV thrombolytics due to low NIHSS and outside the time window. Not a candidate for thrombectomy due to low NIHSS. History obtained from patient, on-site staff, and independent chart review. PAST MEDICAL/SURGICAL HISTORY: as stated in HPI FAMILY HISTORY: father had stroke and heart attack, mother had strokes, in their 70s/80s SOCIAL HISTORY: denies smoking Review of Systems - Review of Systems Review of Systems (Narrative): Pertinent positive and negative findings as per HPI. All other systems negative. - Past Medical History Past Medical History: Yes Neurological History: No Pertinent History ENT History: No Pertinent History Cardiac History: High Cholesterol, Hypertension Respiratory History: No Pertinent History Endocrine Medical History: No Pertinent History Musculoskelatal History: No Pertinent History GI Medical History: No Pertinent History History: Other Pyscho-Social History: Depression Reproductive Disorders: No Pertinent History Comment: tomeka pouch - Past Surgical History Past Surgical History: Yes Neuro Surgical History: No Pertinent History Cardiac History: No Pertinent History Respiratory Surgery: No Pertinent History GI Surgical History: No Pertinent History Genitourinary Surgical Hx: Other Female Surgical History: Dilation & Curettage, Section Other Surgical History: 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 mesh surgery 2011 Significant Family History: no pertinent family hx - Social History Smoking Status: Never smoker Exposure to second hand smoke: No Alcohol: None Drug Use: none - Social Determinants of Health Will the patient participate in the screening: Yes Do you worry about a steady place to live?: No Do you have any problems with any of the following?: No known problems In the past 12 months,have you had to go without utilities?: No Have you or anyone in your house had to go without enough: No Transportation Issues: No Has anyone in your support network made you feel unsafe?: No Does the patient want assistance with any of the above?: No Physical Exam - Vital Signs Vital Signs: Vital Signs - 24 hr 06/23/24 06/23/24 06/23/24 09:36 10:00 10:09 Temperature 97.6 F Pulse Rate 69 Blood Pressure 160/104 161/74 140/89 Blood Pressure 160/104 [Right Arm] O2 Sat by Pulse 98 99 Oximetry 06/23/24 06/23/24 06/23/24 10:30 11:00 11:23 Temperature Pulse Rate Blood Pressure 147/78 145/72 Blood Pressure [Right Arm] O2 Sat by Pulse 99 Oximetry 06/23/24 06/23/24 06/23/24 11:30 12:01 12:30 Temperature Pulse Rate Blood Pressure 126/105 150/90 158/82 Blood Pressure [Right Arm] O2 Sat by Pulse 83 L 97 Oximetry 06/23/24 13:00 Temperature Pulse Rate Blood Pressure 157/75 Blood Pressure [Right Arm] O2 Sat by Pulse 99 Oximetry - Physical Exam Tele-Neuro Physical Exam (Narrative): PHYSICAL EXAMINATION: Constitutional: well-developed, no acute distress Cardiovascular: regular rate, no significant edema Skin: no evident rashes or lesions Respiratory: breathing comfortably on room air Psychiatric: awake, alert, oriented, conversational, somewhat flat affect Eyes: normal ocular alignment, full range of motion Musculoskeletal: muscle strength symmetric Neurologic: face symmetric, sensation intact, no dysmetria with finger-nose testing bilaterally NIHSS Mental status (0-3): 0 Month/age (0-2): 0 Commands (0-2): 0 Best Gaze (0-2): 0 Visual Javed (0-3):0 Facial weakness (0-3): 0 LUE (0-4): 0 RUE (0-4): 0 LLE (0-4): 0 RLE (0-4): 0 Ataxia (0-2): 0 Sensation (0-2): 0 Aphasia (0-3): 0 Dysarthria (0-2): 0 Extinction (0-2): 0 NIHSS Total: 0 Results - Labs Lab/Micro Results: Lab Results-Last 24 Hours 06/23/24 06/23/24 06/23/24 Range/Units 10:30 10:30 10:30 WBC 8.7 (3.98-10.04) x10^3/uL RBC 3.93 (3.93-5.22) x10^6/uL Hgb 10.9 L (11.2-15.7) g/dL Hct 33.3 L (34.1-44.9) % MCV 84.7 (79.4-94.8) fL MCH 27.7 (25.6-32.2) pg MCHC 32.7 (32.2-35.5) g/dL RDW 14.0 (11.7-14.4) % Plt Count 223 (182-369) x10^3/uL MPV 10.0 (9.4-12.3) fL Gran % 82.9 H (34.0-71.1) % Immature Gran % (Auto) 0.3 (0.001-0.429) % Nucleat RBC Rel Count 0.0 (0.00-0.2) % Eos # (Auto) 0.10 (0.04-0.36) x10^3/uL Immature Gran # (Auto) 0.03 (0.001-0.031) x10^3u/L Absolute Lymphs (auto) 0.56 L (1.18-3.74) x10^3/uL Absolute Monos (auto) 0.77 (0.24-0.86) x10^3/uL Absolute Nucleated RBC 0.00 (0.00-0.012) x10^3u/L Lymphocytes % 6.4 L (19.3-51.7) % Monocytes % 8.8 (4.7-12.5) % Eosinophils % 1.1 (0.7-5.8) % Basophils % 0.5 (0.1-1.2) % Absolute Granulocytes 7.21 H (1.56-6.13) x10^3/uL Basophils # 0.04 (0.01-0.08) x10^3/uL Sodium 136 (135-145) mmol/L Potassium 3.9 (3.5-5.1) mmol/L Chloride 103 (98-107) mmol/L Carbon Dioxide 23 (22-30) mmol/L Anion Gap 12.9 (5-15) MEQ/L BUN 30 H (7-17) mg/dL Creatinine 1.48 H (0.52-1.04) mg/dL Estimated GFR 40.5 ML/MIN Glucose 164 H (74-106) mg/dL Calcium 9.5 (8.4-10.2) mg/dL Magnesium 1.9 (1.6-2.3) mg/dL Total Bilirubin 0.60 (0.2-1.3) mg/dL AST 20 (14-36) U/L ALT 14 (0-35) U/L Alkaline Phosphatase 71 (38-126) U/L Troponin I < 0.012 (0.000-0.033) ng/mL NT-Pro-B Natriuret Pep 1480 (<300) pg/mL Serum Total Protein 6.7 (6.3-8.2) g/dL Albumin 3.7 (3.5-5.0) g/dL - Radiology Orders Radiology Orders: Radiology Procedures Category Date Time Status CHEST 1 VIEW (PORTABLE) Stat Exams 06/23/24 10:12 Completed HEAD WITHOUT CONTRAST [CT] Stat Exams 06/23/24 11:21 Completed MRI BRAIN W/O CONTRAST [MRI] Stat Exams 06/23/24 12:25 Ordered Impressions & Recommendations - Impression Acute Ischemic Stroke: LABS/DIAGNOSTICS: Labs personally reviewed: - Na 136, Cr 1.48 - glucose 164 - A1c 4.88 - Hgb 10.9, platelets 223 - LDL 105 Independent visualization and interpretation of imaging: - CTH: chronic lacunar infarcts including R BG, hypodensity in L cerebellum suggestive of subacute/chronic infarct not clearly present on CTH May 2024 ##### ASSESSMENT/PLAN ##### Cerebellar ischemic infarct Gait unsteadiness Chronic stroke Evidence of prior lacunar infarct indicates likely cerebrovascular disease leading to cerebellar ischemia. She has had carotid dopplers this year which did not show significant stenosis however she has not had vessel imaging of her posterior circulation which would be the source for a cerebellar infarct. I think it would be reasonable to obtain MRA along with her MRI to at least obtain a baseline and look for evidence of vertebrobasilar disease. Other possibility would be cardioembolic I dont see in the EMR prior workup such as TTE and extended event/rhythm monitor. For now, will escalate her antiplatelet therapy a bit for secondary stroke prevention and focus on risk factor control. While ischemic infarct is the most likely cause of the cerebellar hypodensity seen on CTH, cant fully rule out another structural lesion, with the slightly atypical appearance/location and her story of more fluctuating symptoms rather than acute onset and persistent gait unsteadiness, I also feel it would be reasonable to obtain gadolinium contrast sequences along with her MRI. - ED Arrival Time ED Arrival Date & Time: ED Arrival Date and Time 06/23/24 09:28 Last known well time: - NIHSS Is patient an IV TPA candidate (if no specify reason): No If not, specify reason:: low NIHSS, out of time window Is patient a thrombectomy candidate:: No Candidate (No): Reason: Patient is not a candidat - Recommendations Recommendations: Recommendations: - serial neurological examinations - MRI brain with & without contrast, MRA head & neck - telemetry, may benefit from cardiac event monitor on discharge - TTE with bubble study - LDL goal <70, high intensity statin first line therapy - A1c goal <7.0 - BP goal normotension - increase home aspirin to 325mg daily for now Acute care plan was discussed with Dr. Cedeno. Thank you for allowing us to participate in this patients care. Please call [facility] with questions, concerns, or change in patients neurological status. This consult was performed via secure telemedicine 2 way audio/visual platform, patient consent obtained.
--- NOTE | 2024-06-23 15:27 | XRAY ---
Indication: Stroke symptoms. Abnormal CT head. Sagittal, coronal, and axial MRI brain performed without contrast using T1, T2, FLAIR, diffusion, and ADC sequences. Comparison: October 21, 2023 Again age-appropriate global atrophy. There remains mild degenerative micro-ischemia signal in the periventricular white matter bilaterally and brainstem/siva unchanged. Inferior left cerebellum now demonstrates 2.7 x 2.0 cm focus of mild encephalomalacia with surrounding gliosis favoring old infarct corresponding to CT finding. Finding is intermediate to dark on diffusion and slightly high signal on ADC sequences also favoring remote infarct. Diffusion images negative for restricted signal. No acute intracranial hemorrhage, abnormal extra-axial fluid collection, or mass effect. Fourth ventricle is midline without hydrocephalus. 7/8 cranial nerve complex bilaterally symmetric. Normal flow-void signal within the major intracerebral circulation. Normal appearing craniocervical junction and sella turcica. Again fluid signal in right middle ear and both mastoid air cells presumed inflammatory. Paranasal sinuses are clear. Impression: 1. New finding for small focus old infarct inferior left cerebellum corresponding to CT finding. 2. Global atrophy and degenerative micro-ischemia within normal limits. 3. Again fluid signal right middle ear and both mastoid air cells presumed inflammatory. 4. No acute intracranial abnormalities or evidence for evolving large vessel territorial stroke.
[2024-06-23 16:42] LABS: Slide Review 1 YES
--- NOTE | 2024-06-23 16:44 | XRAY ---
Indication: Stroke symptoms. Conventional multi-slab 3-D [id number] MRA neck performed without contrast. Comparison: None Visualized common carotid artery negative for critical stenosis/obstruction bilaterally. Left carotid circulation demonstrates mild eccentric arteriosclerotic disease in the proximal and distal internal carotid as well as proximal external carotid arteries producing approximately 50% stenosis. Lesser 50% stenosis seen in the mid right internal carotid artery. Vertebral arteries demonstrates smaller attenuated left vertebral artery without critical stenosis/obstruction. Right vertebral artery normal in MRA appearance. Impression: Mild arteriosclerotic disease bilaterally. Greatest extent left internal and external carotid arteries producing approximately 50% stenosis. Dominant right vertebral artery.
--- NOTE | 2024-06-23 16:47 | XRAY ---
Indication: Stroke symptoms. Ultrasound 3D [id number] MRA [place] performed. Comparison: None Diffuse motion artifact limits exam. Distal internal carotid arteries are bilaterally symmetric without critical stenosis or obstruction. Normal carotid terminus with normal branching A1 and M1 segments bilaterally. Posterior circulation demonstrates dominant distal right vertebral artery. Remaining visualized basilar, left/right posterior cerebral, and left/right superior cerebellar arteries are grossly negative for critical stenosis or obstruction. Impression: Diffuse motion artifact. MRA [place] grossly negative for critical stenosis or obstruction.
[2024-06-23 17:09] VITALS: RESP 16
--- NOTE | 2024-06-23 17:15 | PCM.HP ---
<BIANKA BEAR - Last Filed: 06/23/24 17:32> History of Present Illness - Chief Complaint Chief Complaint: Stroke like symptoms Date: 06/23/24 History of Present Illness: Ms. Abdalla is a 59 year old female with a pmhx of hypertension, hyperlipidemia, anxiety, and depression who presented to ED 06/23/24 with complaints of unsteady gait and leaning towards the left and sensation of bilateral ears being plugged. Patient reports over the past several months she has had 5-6 episodes of an unsteady gait where she leans towards the left while ambulating. Occasionally she states she will just fall over. During these spells she get a sensation of her ears being plugged and is unable to hear. She denies any focal weakness, aphasia, facial drooping, or vision changes. No numbness or tingling. No sensory changes. Denies fever,cough, sob, cp, abdominal pain, BARNEY, dizziness, N/V/D. Upon arrival to ED, patient was hypertensive but otherwise stable vitals. CXR with no acute findings. CT head with new inferior left cerebellum focus of hypoattenuation and stable remote left thalamic remote lacunar infarct. Brain MRI demonstrates new finding for small focus old infarct inferior left cerebellum. No acute intracranial abnormalities or evidence for evolving large vessel territorial stroke. MRA showing mild arteriosclerotic disease bilaterally. Greatest extent left internal and external carotid arteries producing approximately 50% stenosis. Dominant right vertebral artery. Brain MRI/MRA -M[facility] grossly negative for critical stenosis or obstruction. Lab findings remarkable for normocytic anemia, BNP 1480, and DAVID with creat at 1.48 (baseline around 1.1). Tele-neurology consulted with recommendations for further stroke workup, echo with bubble study (unable to obtain bubble study at this facility), and increasing home aspirin to 325mg daily for now. - Review of Systems Constitutional: No Symptoms Eyes: No Symptoms Ears, Nose, & Throat: Ear Pain, Hearing Changes, Other (ears "plugged" ) Respiratory: No Symptoms Cardiac: No Symptoms Abdominal/Gastrointestinal: No Symptoms Genitourinary Symptoms: No Symptoms Musculoskeletal: No Symptoms Skin: No Symptoms Neurological: Gait Changes Psychological: No Symptoms Endocrine: No Symptoms Hematologic/Lymphatic: No Symptoms Immunological/Allergic: No Symptoms Medications & Allergies Home Medications: Home Medication List ALPRAZolam 0.25 MG [xanAX 0.25 MG] 0.25 mg PO TID PRN 10/10/23 [History Confirmed 06/23/24] Bupropion HCl Xl 150 mg [Wellbutrin XL 150 MG] 150 mg PO DAILY 10/10/23 [History Confirmed 06/23/24] Clonidine HCl 0.1 mg [Clonidine 0.1 mg Tablet] 0.1 mg PO BID 10/10/23 [History Confirmed 06/23/24] Duloxetine HCl [Cymbalta] 60 mg PO DAILY 10/10/23 [History Confirmed 06/23/24] Magnesium Oxide 400 mg [Mag-Ox 400] 400 mg PO DAILY 14 Days #14 tablet 10/13/23 [Rx Confirmed 06/23/24] Potassium Chloride 20 meq PO DAILY 5 Days #5 tablet 10/13/23 [Rx Confirmed 06/23/24] Amlodipine Besylate 5 mg [Norvasc 5 mg] 5 mg PO BID 06/23/24 [History Confirmed 06/23/24] Losartan Potassium 50 mg [Cozaar 50 MG] 100 mg PO DAILY 06/23/24 [History Confirmed 06/23/24] Metoprolol Succinate 50 mg [Toprol Xl 50 MG] 50 mg PO BID 06/23/24 [History Confirmed 06/23/24] Topiramate 50 mg PO BID 06/23/24 [History Confirmed 06/23/24] Allergies/Adverse Reactions: Allergies Allergy/AdvReac Type Severity Reaction Status Date / Time adhesive tape Allergy Verified 06/23/24 09:41 cephalexin [From Keflex] Allergy Verified 06/23/24 09:41 - Past Medical History Past Medical History: Yes Neurological History: No Pertinent History ENT History: No Pertinent History Cardiac History: High Cholesterol, Hypertension Respiratory History: No Pertinent History Endocrine Medical History: No Pertinent History Musculoskelatal History: No Pertinent History GI Medical History: No Pertinent History History: Other Pyscho-Social History: Depression Reproductive Disorders: No Pertinent History Comment: tomeka roberts - Past Surgical History Past Surgical History: Yes Neuro Surgical History: No Pertinent History Cardiac History: No Pertinent History Respiratory Surgery: No Pertinent History GI Surgical History: No Pertinent History Genitourinary Surgical Hx: Other Female Surgical History: Dilation & Curettage, Section Other Surgical History: 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 mesh surgery 2012 Significant Family History: heart disease, cancer, stroke - Social History Smoking Status: Never smoker Exposure to second hand smoke: No Alcohol: None Drug Use: none - Social Determinants of Health Will the patient participate in the screening: Yes Do you worry about a steady place to live?: No Do you have any problems with any of the following?: No known problems In the past 12 months,have you had to go without utilities?: No Have you or anyone in your house had to go without enough: No Transportation Issues: No Has anyone in your support network made you feel unsafe?: No Does the patient want assistance with any of the above?: No - Physical Exam Vital Signs: Vital Signs - 24 hr Temp Pulse Resp BP BP Pulse Ox 06/23/24 17:05 97.2 F 64 16 182/76 98 06/23/24 16:27 183/86 99 06/23/24 14:29 99 06/23/24 14:00 163/83 06/23/24 13:30 162/78 99 06/23/24 13:00 157/75 99 06/23/24 12:30 158/82 97 06/23/24 12:01 150/90 83 L 06/23/24 11:30 126/105 06/23/24 11:00 145/72 06/23/24 10:30 147/78 06/23/24 10:09 140/89 06/23/24 10:00 161/74 99 06/23/24 09:36 97.6 F 69 160/104 160/104 98 General Appearance: no apparent distress Neurologic Exam: alert, oriented x 3, cooperative, normal mood/affect Eye Exam: PERRL/EOMI Ears, Nose, Throat Exam: normal ENT inspection Neck Exam: normal inspection Respiratory Exam: normal breath sounds, lungs clear Cardiovascular Exam: regular rate/rhythm, normal heart sounds Gastrointestinal/Abdomen Exam: soft, normal bowel sounds Pelvic Exam: not done Rectal Exam: deferred Back Exam: normal inspection Extremity Exam: normal inspection Results - Labs Lab/Micro Results: Lab Results-Last 24 Hours 06/23/24 06/23/24 06/23/24 Range/Units 10:30 10:30 10:30 WBC 8.7 (3.98-10.04) x10^3/uL RBC 3.93 (3.93-5.22) x10^6/uL Hgb 10.9 L (11.2-15.7) g/dL Hct 33.3 L (34.1-44.9) % MCV 84.7 (79.4-94.8) fL MCH 27.7 (25.6-32.2) pg MCHC 32.7 (32.2-35.5) g/dL RDW 14.0 (11.7-14.4) % Plt Count 223 (182-369) x10^3/uL MPV 10.0 (9.4-12.3) fL Gran % 82.9 H (34.0-71.1) % Immature Gran % (Auto) 0.3 (0.001-0.429) % Nucleat RBC Rel Count 0.0 (0.00-0.2) % Eos # (Auto) 0.10 (0.04-0.36) x10^3/uL Immature Gran # (Auto) 0.03 (0.001-0.031) x10^3u/L Absolute Lymphs (auto) 0.56 L (1.18-3.74) x10^3/uL Absolute Monos (auto) 0.77 (0.24-0.86) x10^3/uL Absolute Nucleated RBC 0.00 (0.00-0.012) x10^3u/L Lymphocytes % 6.4 L (19.3-51.7) % Monocytes % 8.8 (4.7-12.5) % Eosinophils % 1.1 (0.7-5.8) % Basophils % 0.5 (0.1-1.2) % Absolute Granulocytes 7.21 H (1.56-6.13) x10^3/uL Basophils # 0.04 (0.01-0.08) x10^3/uL Sodium 136 (135-145) mmol/L Potassium 3.9 (3.5-5.1) mmol/L Chloride 103 (98-107) mmol/L Carbon Dioxide 23 (22-30) mmol/L Anion Gap 12.9 (5-15) MEQ/L BUN 30 H (7-17) mg/dL Creatinine 1.48 H (0.52-1.04) mg/dL Estimated GFR 40.5 ML/MIN Glucose 164 H (74-106) mg/dL Calcium 9.5 (8.4-10.2) mg/dL Magnesium 1.9 (1.6-2.3) mg/dL Total Bilirubin 0.60 (0.2-1.3) mg/dL AST 20 (14-36) U/L ALT 14 (0-35) U/L Alkaline Phosphatase 71 (38-126) U/L Troponin I < 0.012 (0.000-0.033) ng/mL NT-Pro-B Natriuret Pep 1480 (<300) pg/mL Serum Total Protein 6.7 (6.3-8.2) g/dL Albumin 3.7 (3.5-5.0) g/dL Slides for Path Review YES 06/23/24 Range/Units 13:41 WBC (3.98-10.04) x10^3/uL RBC (3.93-5.22) x10^6/uL Hgb (11.2-15.7) g/dL Hct (34.1-44.9) % MCV (79.4-94.8) fL MCH (25.6-32.2) pg MCHC (32.2-35.5) g/dL RDW (11.7-14.4) % Plt Count (182-369) x10^3/uL MPV (9.4-12.3) fL Gran % (34.0-71.1) % Immature Gran % (Auto) (0.001-0.429) % Nucleat RBC Rel Count (0.00-0.2) % Eos # (Auto) (0.04-0.36) x10^3/uL Immature Gran # (Auto) (0.001-0.031) x10^3u/L Absolute Lymphs (auto) (1.18-3.74) x10^3/uL Absolute Monos (auto) (0.24-0.86) x10^3/uL Absolute Nucleated RBC (0.00-0.012) x10^3u/L Lymphocytes % (19.3-51.7) % Monocytes % (4.7-12.5) % Eosinophils % (0.7-5.8) % Basophils % (0.1-1.2) % Absolute Granulocytes (1.56-6.13) x10^3/uL Basophils # (0.01-0.08) x10^3/uL Sodium (135-145) mmol/L Potassium (3.5-5.1) mmol/L Chloride (98-107) mmol/L Carbon Dioxide (22-30) mmol/L Anion Gap (5-15) MEQ/L BUN (7-17) mg/dL Creatinine (0.52-1.04) mg/dL Estimated GFR ML/MIN Glucose (74-106) mg/dL Calcium (8.4-10.2) mg/dL Magnesium (1.6-2.3) mg/dL Total Bilirubin (0.2-1.3) mg/dL AST (14-36) U/L ALT (0-35) U/L Alkaline Phosphatase (38-126) U/L Troponin I < 0.012 (0.000-0.033) ng/mL NT-Pro-B Natriuret Pep (<300) pg/mL Serum Total Protein (6.3-8.2) g/dL Albumin (3.5-5.0) g/dL Slides for Path Review - Radiology Impressions Radiology Exams & Impressions: Radiology Procedures Category Date Time Status CHEST 1 VIEW (PORTABLE) Stat Exams 06/23/24 10:12 Completed HEAD WITHOUT CONTRAST [CT] Stat Exams 06/23/24 11:21 Completed MRA BRAIN WITHOUT CONTRAST [MRI] Stat Exams 06/23/24 13:34 Completed MRA NECK WITHOUT CONTRAST [MRI] Stat Exams 06/23/24 13:34 Completed MRI BRAIN W/O CONTRAST [MRI] Stat Exams 06/23/24 13:34 Completed Assessment/Plan (1) Stroke-like symptoms Current Visit: Yes Status: Acute Assessment & Plan: -CT head reviewed with new inferior left cerebellum focus of hypoattenuation and stable remote left thalamic remote lacunar infarct -MRI brain reviewed demonstrates new finding for small focus old infarct inferior left cerebellum. No acute intracranial abnormalities or evidence for evolving large vessel territorial stroke -MRA showing mild arteriosclerotic disease bilaterally. Greatest extent left internal and external carotid arteries producing approximately 50% stenosis. Dominant right vertebral artery -Brain MRI/MRA -MRA [facility] grossly negative for critical stenosis or obstruction. -Tele-Neuro consult reviewed with recommendations for further stroke workup with MRA head and neck, echo with bubble study (unable to obtain bubble study at this facility), and increasing home aspirin to 325mg daily for now -lipid panel, A1c -permissive HTN - treat BP only if SBP >220 or DBP > 120 Code(s): R29.90 - UNSPECIFIED SYMPTOMS AND SIGNS INVOLVING THE NERVOUS SYSTEM (2) DAVID (acute kidney injury) Current Visit: Yes Status: Acute Assessment & Plan: -creat reviewed at 1.48 -baseline around 1.1 -Monitor renal/lytes -hold losartan -IVF Code(s): N17.9 - ACUTE KIDNEY FAILURE, UNSPECIFIED (3) HLD (hyperlipidemia) Current Visit: Yes Status: Acute Assessment & Plan: -No cholestrol meds - Lipid panel in the a.m. -atorvastatin 80mg Code(s): E78.5 - HYPERLIPIDEMIA, UNSPECIFIED (4) Ear pain Current Visit: Yes Status: Acute Assessment & Plan: -Reviewed MRI -fluid signal right middle ear and both mastoid air cells presumed inflammatory -Augmentin Code(s): H92.09 - OTALGIA, UNSPECIFIED EAR (5) Normocytic anemia Current Visit: Yes Status: Acute Assessment & Plan: -appears chronic -Hgb reviewed at 10.9 -iron studies -trend Code(s): D64.9 - ANEMIA, UNSPECIFIED (6) Hypertension Current Visit: No Status: Acute Assessment & Plan: -permissive HTN - treat BP only if SBP >220 or DBP > 120 first 48-72 hours Code(s): I10 - ESSENTIAL (PRIMARY) HYPERTENSION (7) Depression with anxiety Current Visit: Yes Status: Acute Assessment & Plan: -continue alprazolam PRN, cymbalta, wellbutrin VTE: ASA Dispo: 1-2 days Code status: Full code Code(s): F41.8 - OTHER SPECIFIED ANXIETY DISORDERS Telemedicine Encounter - Telemedicine Encounter Telemedicine Encounter: "The entirety of this encounter was performed via Telemedicine" This visit was performed using real-time audio and video connection between my location and thepatients locationwith the assistance of a surrogateat the patients location. Written or verbal consent was obtained from the patient/guardian to perform this visit usingnchron[employer]stelemedicine technology. Any patient questions regarding the telemedicine interaction were answered. <FABIOLA BANKS - Last Filed: 06/23/24 20:48> History of Present Illness - Chief Complaint History of Present Illness: is a 59 year old female. - Physical Exam Vital Signs: Vital Signs - 24 hr Temp Pulse Resp BP BP Pulse Ox 06/23/24 19:56 97.5 F 63 16 140/62 98 06/23/24 17:13 97.2 F 64 16 182/70 98 06/23/24 17:05 97.2 F 64 16 182/76 98 06/23/24 16:27 183/86 99 06/23/24 14:29 99 06/23/24 14:00 163/83 06/23/24 13:30 162/78 99 06/23/24 13:00 157/75 99 06/23/24 12:30 158/82 97 06/23/24 12:01 150/90 83 L 06/23/24 11:30 126/105 06/23/24 11:00 145/72 06/23/24 10:30 147/78 06/23/24 10:09 140/89 06/23/24 10:00 161/74 99 06/23/24 09:36 97.6 F 69 160/104 160/104 98 Results - Labs Lab/Micro Results: Lab Results-Last 24 Hours 06/23/24 06/23/24 06/23/24 Range/Units 10:30 10:30 10:30 WBC 8.7 (3.98-10.04) x10^3/uL RBC 3.93 (3.93-5.22) x10^6/uL Hgb 10.9 L (11.2-15.7) g/dL Hct 33.3 L (34.1-44.9) % MCV 84.7 (79.4-94.8) fL MCH 27.7 (25.6-32.2) pg MCHC 32.7 (32.2-35.5) g/dL RDW 14.0 (11.7-14.4) % Plt Count 223 (182-369) x10^3/uL MPV 10.0 (9.4-12.3) fL Gran % 82.9 H (34.0-71.1) % Immature Gran % (Auto) 0.3 (0.001-0.429) % Nucleat RBC Rel Count 0.0 (0.00-0.2) % Eos # (Auto) 0.10 (0.04-0.36) x10^3/uL Immature Gran # (Auto) 0.03 (0.001-0.031) x10^3u/L Absolute Lymphs (auto) 0.56 L (1.18-3.74) x10^3/uL Absolute Monos (auto) 0.77 (0.24-0.86) x10^3/uL Absolute Nucleated RBC 0.00 (0.00-0.012) x10^3u/L Lymphocytes % 6.4 L (19.3-51.7) % Monocytes % 8.8 (4.7-12.5) % Eosinophils % 1.1 (0.7-5.8) % Basophils % 0.5 (0.1-1.2) % Absolute Granulocytes 7.21 H (1.56-6.13) x10^3/uL Basophils # 0.04 (0.01-0.08) x10^3/uL Sodium 136 (135-145) mmol/L Potassium 3.9 (3.5-5.1) mmol/L Chloride 103 (98-107) mmol/L Carbon Dioxide 23 (22-30) mmol/L Anion Gap 12.9 (5-15) MEQ/L BUN 30 H (7-17) mg/dL Creatinine 1.48 H (0.52-1.04) mg/dL Estimated GFR 40.5 ML/MIN Glucose 164 H (74-106) mg/dL Hemoglobin A1c (4.5-6.0) % Calcium 9.5 (8.4-10.2) mg/dL Magnesium 1.9 (1.6-2.3) mg/dL Total Bilirubin 0.60 (0.2-1.3) mg/dL AST 20 (14-36) U/L ALT 14 (0-35) U/L Alkaline Phosphatase 71 (38-126) U/L Troponin I < 0.012 (0.000-0.033) ng/mL NT-Pro-B Natriuret Pep 1480 (<300) pg/mL Serum Total Protein 6.7 (6.3-8.2) g/dL Albumin 3.7 (3.5-5.0) g/dL Slides for Path Review YES 06/23/24 06/23/24 06/23/24 Range/Units 10:30 13:41 16:55 WBC (3.98-10.04) x10^3/uL RBC (3.93-5.22) x10^6/uL Hgb (11.2-15.7) g/dL Hct (34.1-44.9) % MCV (79.4-94.8) fL MCH (25.6-32.2) pg MCHC (32.2-35.5) g/dL RDW (11.7-14.4) % Plt Count (182-369) x10^3/uL MPV (9.4-12.3) fL Gran % (34.0-71.1) % Immature Gran % (Auto) (0.001-0.429) % Nucleat RBC Rel Count (0.00-0.2) % Eos # (Auto) (0.04-0.36) x10^3/uL Immature Gran # (Auto) (0.001-0.031) x10^3u/L Absolute Lymphs (auto) (1.18-3.74) x10^3/uL Absolute Monos (auto) (0.24-0.86) x10^3/uL Absolute Nucleated RBC (0.00-0.012) x10^3u/L Lymphocytes % (19.3-51.7) % Monocytes % (4.7-12.5) % Eosinophils % (0.7-5.8) % Basophils % (0.1-1.2) % Absolute Granulocytes (1.56-6.13) x10^3/uL Basophils # (0.01-0.08) x10^3/uL Sodium (135-145) mmol/L Potassium (3.5-5.1) mmol/L Chloride (98-107) mmol/L Carbon Dioxide (22-30) mmol/L Anion Gap (5-15) MEQ/L BUN (7-17) mg/dL Creatinine (0.52-1.04) mg/dL Estimated GFR ML/MIN Glucose (74-106) mg/dL Hemoglobin A1c 5.59 (4.5-6.0) % Calcium (8.4-10.2) mg/dL Magnesium (1.6-2.3) mg/dL Total Bilirubin (0.2-1.3) mg/dL AST (14-36) U/L ALT (0-35) U/L Alkaline Phosphatase (38-126) U/L Troponin I < 0.012 < 0.012 (0.000-0.033) ng/mL NT-Pro-B Natriuret Pep (<300) pg/mL Serum Total Protein (6.3-8.2) g/dL Albumin (3.5-5.0) g/dL Slides for Path Review - Radiology Impressions Radiology Exams & Impressions: Radiology Procedures Category Date Time Status CHEST 1 VIEW (PORTABLE) Stat Exams 06/23/24 10:12 Completed ECHO W/2D AND DOPPLER [US] Routine Exams 06/23/24 17:54 Ordered HEAD WITHOUT CONTRAST [CT] Stat Exams 06/23/24 11:21 Completed MRA BRAIN WITHOUT CONTRAST [MRI] Stat Exams 06/23/24 13:34 Completed MRA NECK WITHOUT CONTRAST [MRI] Stat Exams 06/23/24 13:34 Completed MRI BRAIN W/O CONTRAST [MRI] Stat Exams 06/23/24 13:34 Completed Telemedicine Encounter - Telemedicine Encounter Telemedicine Encounter: "The entirety of this encounter was performed via Telemedicine" This visit was performed using real-time audio and video connection between my location and thepatients locationwith the assistance of a surrogateat the patients location. Written or verbal consent was obtained from the patient/guardian to perform this visit using[facility] technology. Any patient questions regarding the telemedicine interaction were answered. AICHA Encounter - AICHA Encounter Attestation AICHA Encounter Attestation: "KavehlysNATO Warner andhavediscussed pertinent aspects of their care with Bianka Xiao agree with the history, physical exam (any modifications based on my personal exam will be noted below), assessment, and plan as outlined in original note. Please see immediately below for my summary of findings and additional assessment and plan along with any meaningful corrections/explanations to the Subjective/Objective portions of the AICHA note will be noted." My portion of the encounter took place via telemedicine. -Patient with evidence of old left cerebellar infarct on MRI and smaller left vertebral artery. Echo pending. Seen by neuro, appreciate recs. My need further angiographic evaluation of LVA per neuro. On high dose ASA at this time. Start Augmentin for middle ear infection.
[2024-06-23] MEDS ORDERED: Zofran 4 MG/2 ML VIAL IV PRN (17:51)
[2024-06-23] MEDS ORDERED: xanAX 0.25 MG PO PRN (17:56)
[2024-06-23] MEDS: Sodium Chloride 0.9% 1000 ML 1,000 ML IV SCH (18:52)
--- NOTE | 2024-06-23 19:08 | PCM.NOTE ---
Date and Time: 06/23/241906 Subjective Assessment: TELEPHONE NOTE I was called to review imaging completed on this patient earlier. This MRI shows that area of concern on CT in left cerebellar hemisphere is a chronic infarct with some mild encephalomalacia. MRA head and neck are motion degraded but demonstrate no definite large vessel occlusion. Left vertebral artery is diminutive at various points of its course. Unclear if this is anatomical or pathologic. Continue ASA 325 mg daily and atorvastatin 80 mg daily Follow-up TTE Continue on telemetry May warrant additional angiographic imaging of the LVA Discussed with Sharmin Mir NP Objective Exam - Vital Signs Vital Signs: Vital Signs - 24 hr 06/23/24 06/23/24 06/23/24 09:36 10:00 10:09 Temperature 97.6 F Pulse Rate 69 Respiratory Rate Blood Pressure 160/104 161/74 140/89 Blood Pressure 160/104 [Right Arm] O2 Sat by Pulse 98 99 Oximetry 06/23/24 06/23/24 06/23/24 10:30 11:00 11:30 Temperature Pulse Rate Respiratory Rate Blood Pressure 147/78 145/72 126/105 Blood Pressure [Right Arm] O2 Sat by Pulse Oximetry 06/23/24 06/23/24 06/23/24 12:01 12:30 13:00 Temperature Pulse Rate Respiratory Rate Blood Pressure 150/90 158/82 157/75 Blood Pressure [Right Arm] O2 Sat by Pulse 83 L 97 99 Oximetry 06/23/24 06/23/24 06/23/24 13:30 14:00 14:29 Temperature Pulse Rate Respiratory Rate Blood Pressure 162/78 163/83 Blood Pressure [Right Arm] O2 Sat by Pulse 99 99 Oximetry 06/23/24 06/23/24 06/23/24 16:27 17:05 17:13 Temperature 97.2 F 97.2 F Pulse Rate 64 64 Respiratory 16 16 Rate Blood Pressure 183/86 Blood Pressure 182/76 182/70 [Right Arm] O2 Sat by Pulse 99 98 98 Oximetry Objective Data - Labs Lab/Micro Results: Lab Results-Last 24 Hours 06/23/24 06/23/24 06/23/24 Range/Units 10:30 10:30 10:30 WBC 8.7 (3.98-10.04) x10^3/uL RBC 3.93 (3.93-5.22) x10^6/uL Hgb 10.9 L (11.2-15.7) g/dL Hct 33.3 L (34.1-44.9) % MCV 84.7 (79.4-94.8) fL MCH 27.7 (25.6-32.2) pg MCHC 32.7 (32.2-35.5) g/dL RDW 14.0 (11.7-14.4) % Plt Count 223 (182-369) x10^3/uL MPV 10.0 (9.4-12.3) fL Gran % 82.9 H (34.0-71.1) % Immature Gran % (Auto) 0.3 (0.001-0.429) % Nucleat RBC Rel Count 0.0 (0.00-0.2) % Eos # (Auto) 0.10 (0.04-0.36) x10^3/uL Immature Gran # (Auto) 0.03 (0.001-0.031) x10^3u/L Absolute Lymphs (auto) 0.56 L (1.18-3.74) x10^3/uL Absolute Monos (auto) 0.77 (0.24-0.86) x10^3/uL Absolute Nucleated RBC 0.00 (0.00-0.012) x10^3u/L Lymphocytes % 6.4 L (19.3-51.7) % Monocytes % 8.8 (4.7-12.5) % Eosinophils % 1.1 (0.7-5.8) % Basophils % 0.5 (0.1-1.2) % Absolute Granulocytes 7.21 H (1.56-6.13) x10^3/uL Basophils # 0.04 (0.01-0.08) x10^3/uL Sodium 136 (135-145) mmol/L Potassium 3.9 (3.5-5.1) mmol/L Chloride 103 (98-107) mmol/L Carbon Dioxide 23 (22-30) mmol/L Anion Gap 12.9 (5-15) MEQ/L BUN 30 H (7-17) mg/dL Creatinine 1.48 H (0.52-1.04) mg/dL Estimated GFR 40.5 ML/MIN Glucose 164 H (74-106) mg/dL Hemoglobin A1c (4.5-6.0) % Calcium 9.5 (8.4-10.2) mg/dL Magnesium 1.9 (1.6-2.3) mg/dL Total Bilirubin 0.60 (0.2-1.3) mg/dL AST 20 (14-36) U/L ALT 14 (0-35) U/L Alkaline Phosphatase 71 (38-126) U/L Troponin I < 0.012 (0.000-0.033) ng/mL NT-Pro-B Natriuret Pep 1480 (<300) pg/mL Serum Total Protein 6.7 (6.3-8.2) g/dL Albumin 3.7 (3.5-5.0) g/dL Slides for Path Review YES 06/23/24 06/23/24 06/23/24 Range/Units 10:30 13:41 16:55 WBC (3.98-10.04) x10^3/uL RBC (3.93-5.22) x10^6/uL Hgb (11.2-15.7) g/dL Hct (34.1-44.9) % MCV (79.4-94.8) fL MCH (25.6-32.2) pg MCHC (32.2-35.5) g/dL RDW (11.7-14.4) % Plt Count (182-369) x10^3/uL MPV (9.4-12.3) fL Gran % (34.0-71.1) % Immature Gran % (Auto) (0.001-0.429) % Nucleat RBC Rel Count (0.00-0.2) % Eos # (Auto) (0.04-0.36) x10^3/uL Immature Gran # (Auto) (0.001-0.031) x10^3u/L Absolute Lymphs (auto) (1.18-3.74) x10^3/uL Absolute Monos (auto) (0.24-0.86) x10^3/uL Absolute Nucleated RBC (0.00-0.012) x10^3u/L Lymphocytes % (19.3-51.7) % Monocytes % (4.7-12.5) % Eosinophils % (0.7-5.8) % Basophils % (0.1-1.2) % Absolute Granulocytes (1.56-6.13) x10^3/uL Basophils # (0.01-0.08) x10^3/uL Sodium (135-145) mmol/L Potassium (3.5-5.1) mmol/L Chloride (98-107) mmol/L Carbon Dioxide (22-30) mmol/L Anion Gap (5-15) MEQ/L BUN (7-17) mg/dL Creatinine (0.52-1.04) mg/dL Estimated GFR ML/MIN Glucose (74-106) mg/dL Hemoglobin A1c 5.59 (4.5-6.0) % Calcium (8.4-10.2) mg/dL Magnesium (1.6-2.3) mg/dL Total Bilirubin (0.2-1.3) mg/dL AST (14-36) U/L ALT (0-35) U/L Alkaline Phosphatase (38-126) U/L Troponin I < 0.012 < 0.012 (0.000-0.033) ng/mL NT-Pro-B Natriuret Pep (<300) pg/mL Serum Total Protein (6.3-8.2) g/dL Albumin (3.5-5.0) g/dL Slides for Path Review - Radiology Orders Radiology Orders: Radiology Procedures Category Date Time Status CHEST 1 VIEW (PORTABLE) Stat Exams 06/23/24 10:12 Completed ECHO W/2D AND DOPPLER [US] Routine Exams 06/23/24 17:54 Ordered HEAD WITHOUT CONTRAST [CT] Stat Exams 06/23/24 11:21 Completed MRA BRAIN WITHOUT CONTRAST [MRI] Stat Exams 06/23/24 13:34 Completed MRA NECK WITHOUT CONTRAST [MRI] Stat Exams 06/23/24 13:34 Completed MRI BRAIN W/O CONTRAST [MRI] Stat Exams 06/23/24 13:34 Completed
[2024-06-23] MEDS: TOPIRAMATE PO SCH (21:41)
[2024-06-23] MEDS: Augmentin 875-125 Tablet PO SCH (21:41)
[2024-06-24 05:28] LABS: Appearance Cloudy (Clear); Bacteria Rare /HPF (None Seen); Bilirubin Negative (Negative); Blood Negative (Negative); Epithelial Cells Few /HPF (None Seen); Glucose, Urine Negative (Negative); Ketones Negative (Negative); Leukocyte Esterase Large (Negative); Nitrite Negative (Negative); Ph 6.5 (4.6-8.0); Protein,Urine Dip Trace (Negative); RBC 0-2 /HPF (0-5); Urobilinogen 0.2 mg/dL (0.2); WBC 51-100 /HPF (0-5)
[2024-06-24 05:45] LABS: Absolute Neutrophil Ct (ANC) 5.07 x10^3/uL (1.56-6.13); BASOPHIL % 0.7 % (0.1-1.2); Basophil (Absolute #) 0.05 x10^3/uL (0.01-0.08); Eosinophil % 2.1 % (0.7-5.8); Eosinophil (Absolute #) 0.15 x10^3/uL (0.04-0.36); Hematocrit 32.5 % (34.1-44.9); Hemoglobin 10.8 g/dL (11.2-15.7); IMMATURE GRAN # 0.01 x10^3u/L (0.001-0.031); IMMATURE GRAN % 0.1 % (0.001-0.429); Lymphocyte (Absolute #) 1.12 x10^3/uL (1.18-3.74); Mean Cell Volume 83.5 fL (79.4-94.8); Mean Corpuscular Hemoglobin 27.8 pg (25.6-32.2); Mean Corpuscular Hgb Concent. 33.2 g/dL (32.2-35.5); Mean Platelet Volume 10.4 fL (9.4-12.3); Monocyte (Absolute #) 0.59 x10^3/uL (0.24-0.86); Monocytes % 8.4 % (4.7-12.5); Neutrophil % 72.7 % (34.0-71.1); Platelet Count 250 x10^3/uL (182-369); Red Blood Count 3.89 x10^6/uL (3.93-5.22); Red Cell Distribution Width 14.3 % (11.7-14.4)
[2024-06-24 06:10] LABS: ALBUMIN 3.8 g/dL (3.5-5.0); ANION GAP 12.9 MEQ/L (5-15); BILIRUBIN,TOTAL 0.6 mg/dL (0.2-1.3); Calcium 9.3 mg/dL (8.4-10.2); Creatinine 1 1.29 mg/dL (0.52-1.04); EST GLOMERULAR FILTRATION RATE 47.8 ML/MIN; Potassium 3.1 mmol/L (3.5-5.1); Total Protein 7.1 g/dL (6.3-8.2)
[2024-06-24] MEDS: TYLENOL 325 MG PO PRN (08:46)
[2024-06-24] MEDS: Cymbalta 30 MG Capsule PO SCH (09:07)
[2024-06-24] MEDS: Klor Con PO SCH ×2 (09:07→09:55)
[2024-06-24] MEDS: MAG-OX 400 PO SCH (09:07)
[2024-06-24] MEDS: Toprol Xl 50 MG PO SCH (09:07)
[2024-06-24] MEDS: Augmentin 875-125 Tablet PO SCH (09:07)
[2024-06-24] MEDS: LIPITOR 40MG PO SCH (09:07)
[2024-06-24] MEDS: CLONIDINE 0.1 MG TABLET PO SCH (09:07)
[2024-06-24] MEDS: Ecotrin 325 MG PO SCH (09:07)
[2024-06-24] MEDS: NORVASC 5 MG PO SCH (09:07)
[2024-06-24] MEDS: Wellbutrin XL 150 MG PO SCH (09:08)
[2024-06-24] MEDS: Cozaar 50 MG PO SCH (11:13)
--- NOTE | 2024-06-24 12:58 | PCM.DS ---
Discharge Summary Date of Admission: 06/23/24 17:04 Date of Discharge: 06/24/24 Admitting Physician: FABIOLA BANKS MD Consults: Consults on Case 06/23/24 18:30 Tele-Health Consult ROUTINE Primary Care Provider: HAMIDA SINCLAIR Allergies Allergies adhesive tape Allergy (Verified 06/23/24 09:41) cephalexin [From Keflex] Allergy (Verified 06/23/24 09:41) Hospital Summary - Hospital Course Hospital Course: Ms. Abdalla is a 59 year old female with a pmhx of hypertension, hyperlipidemia, anxiety, and depression who presented to ED 06/23/24 with complaints of unsteady gait and leaning towards the left and sensation of bilateral ears being plugged. Patient reports over the past several months she has had 5-6 episodes of an unsteady gait where she leans towards the left while ambulating. Occasionally she states she will just fall over. During these spells she get a sensation of her ears being plugged and is unable to hear. She denies any focal weakness, aphasia, facial drooping, or vision changes. No numbness or tingling. No sensory changes. Denies fever,cough, sob, cp, abdominal pain, BARNEY, dizziness, N/V/D. Upon arrival to ED, patient was hypertensive but otherwise stable vitals. CXR with no acute findings. CT head with new inferior left cerebellum focus of hypoattenuation and stable remote left thalamic remote lacunar infarct. Brain MRI demonstrates new finding for small focus old infarct inferior left cerebellum. No acute intracranial abnormalities or evidence for evolving large vessel territorial stroke. MRA showing mild arteriosclerotic disease bilaterally. Greatest extent left internal and external carotid arteries producing approximately 50% stenosis. Dominant right vertebral artery. Brain MRI/MRA -MRA [place] grossly negative for critical stenosis or obstr uction. Lab findings remarkable for normocytic anemia, BNP 1480, and DAVID with creat at 1.48 (baseline around 1.1). Tele-neurology consulted with recommendations for further stroke workup, echo with bubble study (unable to obtain bubble study at this facility), and increasing home aspirin to 325mg d aily for now. No further events today. PT recommending OP PT- patient declines. She does have a walker to help with ambulation. Patient can resume BP meds today. Re-consult with neurology with imaging review- recommends ASA 325mg, Atorvastatin 80mg, heel layer on discharge, and follow up with cardiology and neurology. Will also set up appt with ENT. Discharge Note Latest Assessment & Plan (1) Stroke-like symptoms Current Visit: Yes Status: Acute Assessment & Plan: -CT head reviewed with new inferior left cerebellum focus of hypoattenuation and stable remote left thalamic remote lacunar infarct -MRI brain reviewed demonstrates new finding for small focus old infarct inferior left cerebellum. No acute intracranial abnormalities or evidence for evolving large vessel territorial stroke -MRA showing mild arteriosclerotic disease bilaterally. Greatest extent left i nternal and external carotid arteries producing approximately 50% stenosis. Dominant right vertebral artery -Brain MRI/MRA -MRA [place] grossly negative for critical stenosis or obstruction. -Tele-Neuro consult reviewed with recommendations for further stroke workup with MRA head and neck, echo with bubble study (unable to obtain bubble study at this facility), and increasing home aspirin to 325mg daily for now -lipid panel, A1c -permissive HTN - treat BP only if SBP >220 or DBP > 120 Code(s): R29.90 - UNSPECIFIED SYMPTOMS AND SIGNS INVOLVING THE NERVOUS SYSTEM (2) DAVID (acute kidney injury) Current Visit: Yes Status: Acute Assessment & Plan: -creat reviewed at 1.48 -baseline around 1.1 -Monitor renal/lytes -hold losartan -IVF Code(s): N17.9 - ACUTE KIDNEY FAILURE, UNSPECIFIED (3) HLD (hyperlipidemia) Current Visit: Yes Status: Acute Assessment & Plan: -No cholestrol meds - Lipid panel in the a.m. -atorvastatin 80mg Code(s): E78.5 - HYPERLIPIDEMIA, UNSPECIFIED (4) Ear pain Current Visit: Yes Status: Acute Assessment & Plan: -Reviewed MRI -fluid signal right middle ear and both mastoid air cells presumed inflammatory -Augmentin Code(s): H92.09 - OTALGIA, UNSPECIFIED EAR (5) Normocytic anemia Current Visit: Yes Status: Acute Assessment & Plan: -appears chronic -Hgb reviewed at 10.9 -iron studies -trend Code(s): D64.9 - ANEMIA, UNSPECIFIED (6) Hypertension Current Visit: No Status: Acute Assessment & Plan: -permissive HTN - treat BP only if SBP >220 or DBP > 120 first 48-72 hours Code(s): I10 - ESSENTIAL (PRIMARY) HYPERTENSION (7) Depression with anxiety Current Visit: Yes Status: Acute Assessment & Plan: -continue alprazolam PRN, cymbalta, wellbutrin I spent 35 minutes [id number] with the patient on the day of discharge performing discharge exam, discussing hospital stay and discharge instructions with patient and caregivers, preparation of discharge records, prescriptions & referral forms and addressing any questions/concerns the patient had as documented above. - Vitals & Intake/Output Vital Signs: Vital Signs Temperature 98.3 F 06/24/24 12:00 Pulse Rate 67 06/24/24 12:00 Respiratory Rate 16 06/24/24 12:00 Blood Pressure 164/75 06/24/24 12:00 O2 Sat by Pulse Oximetry 96 06/24/24 12:00 Intake & Output: Intake & Output 06/22/24 06/23/24 06/24/24 06/25/24 11:59 11:59 11:59 11:59 Intake Total 423 120 Output Total 800 550 Balance -377 -430 Weight 79.1 kg 77.7 kg - Lab Result Diagrams: 06/24/24 05:41 06/24/24 05:41 Lab Results-Last 24 Hrs: Lab Results-Last 24 Hours 06/23/24 06/23/24 06/23/24 Range/Units 10:30 10:30 13:41 WBC (3.98-10.04) x10^3/uL RBC (3.93-5.22) x10^6/uL Hgb (11.2-15.7) g/dL Hct (34.1-44.9) % MCV (79.4-94.8) fL MCH (25.6-32.2) pg MCHC (32.2-35.5) g/dL RDW (11.7-14.4) % Plt Count (182-369) x10^3/uL MPV (9.4-12.3) fL Gran % (34.0-71.1) % Immature Gran % (Auto) (0.001-0.429) % Nucleat RBC Rel Count (0.00-0.2) % Eos # (Auto) (0.04-0.36) x10^3/uL Immature Gran # (Auto) (0.001-0.031) x10^3u/L Absolute Lymphs (auto) (1.18-3.74) x10^3/uL Absolute Monos (auto) (0.24-0.86) x10^3/uL Absolute Nucleated RBC (0.00-0.012) x10^3u/L Lymphocytes % (19.3-51.7) % Monocytes % (4.7-12.5) % Eosinophils % (0.7-5.8) % Basophils % (0.1-1.2) % Absolute Granulocytes (1.56-6.13) x10^3/uL Basophils # (0.01-0.08) x10^3/uL Sodium (135-145) mmol/L Potassium (3.5-5.1) mmol/L Chloride (98-107) mmol/L Carbon Dioxide (22-30) mmol/L Anion Gap (5-15) MEQ/L BUN (7-17) mg/dL Creatinine (0.52-1.04) mg/dL Estimated GFR ML/MIN Glucose (74-106) mg/dL Hemoglobin A1c 5.59 (4.5-6.0) % Calcium (8.4-10.2) mg/dL Total Bilirubin (0.2-1.3) mg/dL AST (14-36) U/L ALT (0-35) U/L Alkaline Phosphatase (38-126) U/L Troponin I < 0.012 (0.000-0.033) ng/mL Serum Total Protein (6.3-8.2) g/dL Albumin (3.5-5.0) g/dL Triglycerides (30-150) mg/dL Cholesterol (50-200) mg/dL LDL Cholesterol (30-100) mg/dL HDL Cholesterol (40-60) mg/dL Heart Disease Risk Ratio Urine Color (Yellow) Urine Appearance (Clear) Urine pH (4.6-8.0) Ur Specific [place] (1.005-1.030) Urine Protein (Negative) Urine Glucose (UA) (Negative) mg/dL Urine Ketones (Negative) Urine Blood (Negative) Urine Nitrite (Negative) Urine Bilirubin (Negative) Urine Urobilinogen (0.2) mg/dL Ur Leukocyte Esterase (Negative) U Hyaline Cast (Auto) (0-2) /LPF Urine Microscopic RBC (0-5) /HPF Urine Microscopic WBC (0-5) /HPF Ur Epithelial Cells (None Seen) /HPF Urine Bacteria (None Seen) /HPF Urine Culture Reflexed (NO) Slides for Path Review YES 06/23/24 06/24/24 06/24/24 Range/Units 16:55 05:18 05:41 WBC 7.0 (3.98-10.04) x10^3/uL RBC 3.89 L (3.93-5.22) x10^6/uL Hgb 10.8 L (11.2-15.7) g/dL Hct 32.5 L (34.1-44.9) % MCV 83.5 (79.4-94.8) fL MCH 27.8 (25.6-32.2) pg MCHC 33.2 (32.2-35.5) g/dL RDW 14.3 (11.7-14.4) % Plt Count 250 (182-369) x10^3/uL MPV 10.4 (9.4-12.3) fL Gran % 72.7 H (34.0-71.1) % Immature Gran % (Auto) 0.1 (0.001-0.429) % Nucleat RBC Rel Count 0.0 (0.00-0.2) % Eos # (Auto) 0.15 (0.04-0.36) x10^3/uL Immature Gran # (Auto) 0.01 (0.001-0.031) x10^3u/L Absolute Lymphs (auto) 1.12 L (1.18-3.74) x10^3/uL Absolute Monos (auto) 0.59 (0.24-0.86) x10^3/uL Absolute Nucleated RBC 0.00 (0.00-0.012) x10^3u/L Lymphocytes % 16.0 L (19.3-51.7) % Monocytes % 8.4 (4.7-12.5) % Eosinophils % 2.1 (0.7-5.8) % Basophils % 0.7 (0.1-1.2) % Absolute Granulocytes 5.07 (1.56-6.13) x10^3/uL Basophils # 0.05 (0.01-0.08) x10^3/uL Sodium (135-145) mmol/L Potassium (3.5-5.1) mmol/L Chloride (98-107) mmol/L Carbon Dioxide (22-30) mmol/L Anion Gap (5-15) MEQ/L BUN (7-17) mg/dL Creatinine (0.52-1.04) mg/dL Estimated GFR ML/MIN Glucose (74-106) mg/dL Hemoglobin A1c (4.5-6.0) % Calcium (8.4-10.2) mg/dL Total Bilirubin (0.2-1.3) mg/dL AST (14-36) U/L ALT (0-35) U/L Alkaline Phosphatase (38-126) U/L Troponin I < 0.012 (0.000-0.033) ng/mL Serum Total Protein (6.3-8.2) g/dL Albumin (3.5-5.0) g/dL Triglycerides (30-150) mg/dL Cholesterol (50-200) mg/dL LDL Cholesterol (30-100) mg/dL HDL Cholesterol (40-60) mg/dL Heart Disease Risk Ratio Urine Color Yellow (Yellow) Urine Appearance Cloudy A (Clear) Urine pH 6.5 (4.6-8.0) Ur Specific [place] 1.010 (1.005-1.030) Urine Protein Trace A (Negative) Urine Glucose (UA) Negative (Negative) mg/dL Urine Ketones Negative (Negative) Urine Blood Negative (Negative) Urine Nitrite Negative (Negative) Urine Bilirubin Negative (Negative) Urine Urobilinogen 0.2 (0.2) mg/dL Ur Leukocyte Esterase Large A (Negative) U Hyaline Cast (Auto) 11-20 (0-2) /LPF Urine Microscopic RBC 0-2 (0-5) /HPF Urine Microscopic WBC 51-100 A (0-5) /HPF Ur Epithelial Cells Few (None Seen) /HPF Urine Bacteria Rare A (None Seen) /HPF Urine Culture Reflexed YES (NO) Slides for Path Review 06/24/24 Range/Units 05:41 WBC (3.98-10.04) x10^3/uL RBC (3.93-5.22) x10^6/uL Hgb (11.2-15.7) g/dL Hct (34.1-44.9) % MCV (79.4-94.8) fL MCH (25.6-32.2) pg MCHC (32.2-35.5) g/dL RDW (11.7-14.4) % Plt Count (182-369) x10^3/uL MPV (9.4-12.3) fL Gran % (34.0-71.1) % Immature Gran % (Auto) (0.001-0.429) % Nucleat RBC Rel Count (0.00-0.2) % Eos # (Auto) (0.04-0.36) x10^3/uL Immature Gran # (Auto) (0.001-0.031) x10^3u/L Absolute Lymphs (auto) (1.18-3.74) x10^3/uL Absolute Monos (auto) (0.24-0.86) x10^3/uL Absolute Nucleated RBC (0.00-0.012) x10^3u/L Lymphocytes % (19.3-51.7) % Monocytes % (4.7-12.5) % Eosinophils % (0.7-5.8) % Basophils % (0.1-1.2) % Absolute Granulocytes (1.56-6.13) x10^3/uL Basophils # (0.01-0.08) x10^3/uL Sodium 139 (135-145) mmol/L Potassium 3.1 L D (3.5-5.1) mmol/L Chloride 108 H (98-107) mmol/L Carbon Dioxide 21 L (22-30) mmol/L Anion Gap 12.9 (5-15) MEQ/L BUN 24 H (7-17) mg/dL Creatinine 1.29 H (0.52-1.04) mg/dL Estimated GFR 47.8 ML/MIN Glucose 135 H (74-106) mg/dL Hemoglobin A1c (4.5-6.0) % Calcium 9.3 (8.4-10.2) mg/dL Total Bilirubin 0.60 (0.2-1.3) mg/dL AST 20 (14-36) U/L ALT 12 (0-35) U/L Alkaline Phosphatase 76 (38-126) U/L Troponin I (0.000-0.033) ng/mL Serum Total Protein 7.1 (6.3-8.2) g/dL Albumin 3.8 (3.5-5.0) g/dL Triglycerides 141 (30-150) mg/dL Cholesterol 156 (50-200) mg/dL LDL Cholesterol 98 (30-100) mg/dL HDL Cholesterol 26 L (40-60) mg/dL Heart Disease Risk Ratio 6.0 Urine Color (Yellow) Urine Appearance (Clear) Urine pH (4.6-8.0) Ur Specific [place] (1.005-1.030) Urine Protein (Negative) Urine Glucose (UA) (Negative) mg/dL Urine Ketones (Negative) Urine Blood (Negative) Urine Nitrite (Negative) Urine Bilirubin (Negative) Urine Urobilinogen (0.2) mg/dL Ur Leukocyte Esterase (Negative) U Hyaline Cast (Auto) (0-2) /LPF Urine Microscopic RBC (0-5) /HPF Urine Microscopic WBC (0-5) /HPF Ur Epithelial Cells (None Seen) /HPF Urine Bacteria (None Seen) /HPF Urine Culture Reflexed (NO) Slides for Path Review - Radiology Exams Ordered Rad Exams-Entire Visit: Radiology Procedures Category Date Time Status CHEST 1 VIEW (PORTABLE) Stat Exams 06/23/24 10:12 Completed ECHO W/2D AND DOPPLER [US] Routine Exams 06/24/24 09:00 Taken HEAD WITHOUT CONTRAST [CT] Stat Exams 06/23/24 11:21 Completed MRA BRAIN WITHOUT CONTRAST [MRI] Stat Exams 06/23/24 13:34 Completed MRA NECK WITHOUT CONTRAST [MRI] Stat Exams 06/23/24 13:34 Completed MRI BRAIN W/O CONTRAST [MRI] Stat Exams 06/23/24 13:34 Completed - Procedures and Test Procedures and Tests throughout Hospitalization: Therapy Orders & Screens 06/23/24 17:51 PT Eval & Treat (MD Order) ONCE Reason for Eval:: unsteady gait Diagnosis: Stroke like symptoms OT Eval and Treat (MD Order) ONCE Comment: Physician Instructions: Reason For Exam: Diagnosis: Stroke like symptoms Discharge Exam General Appearance: no apparent distress Neurologic Exam: alert, oriented x 3, cooperative, sensation nml Eye Exam: PERRL Ears, Nose, Throat Exam: normal ENT inspection Neck Exam: normal inspection Respiratory Exam: normal breath sounds, lungs clear Cardiovascular Exam: regular rate/rhythm, normal heart sounds Gastrointestinal/Abdomen Exam: soft, normal bowel sounds Pelvic Exam: deferred Rectal Exam: deferred Back Exam: normal inspection Extremity Exam: normal inspection Skin Exam: normal color Final Diagnosis/Problem List - Final Discharge Diagnosis/Problem (1) Stroke-like symptoms Current Visit: Yes Status: Ruled-out Code(s): R29.90 - UNSPECIFIED SYMPTOMS AND SIGNS INVOLVING THE NERVOUS SYSTEM (2) DAVID (acute kidney injury) Current Visit: Yes Status: Acute Code(s): N17.9 - ACUTE KIDNEY FAILURE, UNSPECIFIED (3) HLD (hyperlipidemia) Current Visit: Yes Status: Chronic Code(s): E78.5 - HYPERLIPIDEMIA, UNSPECIFIED (4) Ear pain Current Visit: Yes Status: Chronic Code(s): H92.09 - OTALGIA, UNSPECIFIED EAR (5) Normocytic anemia Current Visit: Yes Status: Chronic Code(s): D64.9 - ANEMIA, UNSPECIFIED (6) Hypertension Current Visit: No Status: Chronic Code(s): I10 - ESSENTIAL (PRIMARY) HYPERTENSION (7) Depression with anxiety Current Visit: Yes Status: Chronic Code(s): F41.8 - OTHER SPECIFIED ANXIETY DISORDERS - Discharge Discharge Date: 06/24/24 Disposition: Home, Self-Care Condition: Stable Prescriptions: New Amox Tr/Potass Clav. 875 mg [Augmentin 875-125 Tablet] 875 mg PO BID 10 Days #20 tablet Aspirin EC 325 mg [Ecotrin 325 MG] 325 mg PO QAM 30 Days #30 tablet Atorvastatin Calcium [Lipitor 40Mg] 80 mg PO DAILY 30 Days #30 tablet Continue Duloxetine HCl [Cymbalta] 60 mg PO DAILY ALPRAZolam 0.25 MG [xanAX 0.25 MG] 0.25 mg PO TID PRN PRN Reason: Anxiety Clonidine HCl 0.1 mg [Clonidine 0.1 mg Tablet] 0.1 mg PO BID Bupropion HCl Xl 150 mg [Wellbutrin XL 150 MG] 150 mg PO DAILY Magnesium Oxide 400 mg [Mag-Ox 400] 400 mg PO DAILY 14 Days #14 tablet Potassium Chloride 20 meq PO DAILY 5 Days #5 tablet Topiramate 50 mg PO BID Amlodipine Besylate 5 mg [Norvasc 5 mg] 5 mg PO BID Losartan Potassium 50 mg [Cozaar 50 MG] 100 mg PO DAILY Metoprolol Succinate 50 mg [Toprol Xl 50 MG] 50 mg PO BID Follow up with: VASILE GREEN [CONSULTING PHYSICIAN] - DANIELA WALLACE [NON-STAFF PHY W/O PRIVILEGES] - HAMIDA SINCLAIR NP [Primary Care Provider] - 06/30/24 2:00 pm
[2024-06-24 17:03] VITALS: BP 153/68; PULSE 59; TEMP 98; O2SAT 98
== END 2024-06-24 17:40 | disposition home or self-care (01) ==
LOC: ED 09:28 → MED SURG 17:04
PROVIDERS: ADMIT Internal Medicine; ATTEND Internal Medicine
DX: R29.90 Unspecified symptoms and signs involving the nervous system (principal); N17.9 Acute kidney failure, unspecified; E78.5 Hyperlipidemia, unspecified; H92.03 Otalgia, bilateral; D64.9 Anemia, unspecified; I10 Essential (primary) hypertension; F41.8 Other specified anxiety disorders; Z79.899 Other long term (current) drug therapy
CPT/HCPCS: 36415; 70450; 70544; 70547; 70551; 71045; 80053; 80061; 81001; 83036; 83721; 83735; 83880; 84132; 84484; 85025; 87040; 87086; 93005; 93246; 93306; 97161; 97165; 99284; Q3014; 93268; A9270-GY; G0378

== ENCOUNTER 2024-07-22 16:30 | Emergency (ER) | payer BC ==
[2024-07-22 16:46] VITALS: RESP 18; TEMP 97.4
[2024-07-22 17:06] LABS: Absolute Neutrophil Ct (ANC) 3.55 x10^3/uL (1.56-6.13); BASOPHIL % 0.7 % (0.1-1.2); Basophil (Absolute #) 0.04 x10^3/uL (0.01-0.08); Eosinophil % 5.2 % (0.7-5.8); Eosinophil (Absolute #) 0.28 x10^3/uL (0.04-0.36); Hematocrit 35.7 % (34.1-44.9); Hemoglobin 11.9 g/dL (11.2-15.7); IMMATURE GRAN # 0.02 x10^3u/L (0.001-0.031); IMMATURE GRAN % 0.4 % (0.001-0.429); Lymphocyte (Absolute #) 1.07 x10^3/uL (1.18-3.74); Mean Cell Volume 83.8 fL (79.4-94.8); Mean Corpuscular Hemoglobin 27.9 pg (25.6-32.2); Mean Corpuscular Hgb Concent. 33.3 g/dL (32.2-35.5); Mean Platelet Volume 9.7 fL (9.4-12.3); Monocyte (Absolute #) 0.39 x10^3/uL (0.24-0.86); Monocytes % 7.3 % (4.7-12.5); Neutrophil % 66.4 % (34.0-71.1); Platelet Count 220 x10^3/uL (182-369); Red Blood Count 4.26 x10^6/uL (3.93-5.22); Red Cell Distribution Width 14.4 % (11.7-14.4); White Blood Count 5.4 x10^3/uL (3.98-10.04)
[2024-07-22] MEDS ORDERED: CLONIDINE 0.1 MG TABLET ONE (17:26)
[2024-07-22] MEDS: CLONIDINE 0.1 MG TABLET PO ONE (17:27)
--- NOTE | 2024-07-22 17:33 | XRAY ---
Indication: Hypertension. Comparison: June 23, 2024 Portable chest is now clear. Heart not enlarged. Bony thorax intact again with mild degenerative changes. No acute findings.
[2024-07-22 17:35] LABS: ALBUMIN 4.3 g/dL (3.5-5.0); ANION GAP 12.4 MEQ/L (5-15); BILIRUBIN,TOTAL 0.3 mg/dL (0.2-1.3); Calcium 9.6 mg/dL (8.4-10.2); Creatinine 1 1.32 mg/dL (0.52-1.04); EST GLOMERULAR FILTRATION RATE 46.5 ML/MIN; Potassium 4.2 mmol/L (3.5-5.1); Total Protein 7.3 g/dL (6.3-8.2)
[2024-07-22 19:12] VITALS: BP 165/82; PULSE 71; O2SAT 99
--- NOTE | 2024-07-22 19:16 | ERPHSYRPT ---
- History of Present Illness Time Seen by Provider: 07/22/24 16:38 Source: patient Exam Limitations: no limitations Patient Subjective Stated Complaint: pt states that she was at the doctor's office and her blood pressure was high. pt states that she thinks she has white coat syndrome Triage Nursing Assessment: pt ambulated into the er; pt is axo x4; c/o htn; pt denies pain; hypertensive on arrival; skin PDW; no respiratory distress present Physician History: 59-year-old female with history of hypertension, anxiety/depression, sent in ER from therapist office with high blood pressure in the low 200s noticed that t herapist office. Patient reports she has history of whitecoat hypertension. She denies any headache, visual changes, feeling dizzy lightheaded, chest pain palpitations or shortness of breath. Reports she has taken her routine blood pressure medications. Allergies/Adverse Reactions: adhesive tape Allergy (Verified 07/22/24 16:36) cephalexin [From Keflex] Allergy (Verified 07/22/24 16:36) Home Medications: ALPRAZolam 0.25 MG [xanAX 0.25 MG] 0.25 mg PO TID PRN 10/10/23 [History] Bupropion HCl Xl 150 mg [Wellbutrin XL 150 MG] 150 mg PO DAILY 10/10/23 [History] Clonidine HCl 0.1 mg [Clonidine 0.1 mg Tablet] 0.1 mg PO BID 10/10/23 [History] Duloxetine HCl [Cymbalta] 60 mg PO DAILY 10/10/23 [History] Amlodipine Besylate 5 mg [Norvasc 5 mg] 5 mg PO BID 06/23/24 [History] Losartan Potassium 50 mg [Cozaar 50 MG] 100 mg PO DAILY 06/23/24 [History] Metoprolol Succinate 50 mg [Toprol Xl 50 MG] 50 mg PO BID 06/23/24 [History] Topiramate 50 mg PO BID 06/23/24 [History] Hx Tetanus, Diphtheria Vaccination/Date Given: No Hx Influenza Vaccination/Date Given: No Hx Pneumococcal Vaccination/Date Given: No Travel Risk - International Travel Have you traveled outside of the country in past 3 weeks: No - Emerging Infectious Disease Are you exhibiting symptoms associated with any current EIDs: No Symptoms: Diarrhea - Review of Systems Constitutional: No Symptoms Ears, Nose, & Throat: No Symptoms Respiratory: No Symptoms Cardiac: No Symptoms Abdominal/Gastrointestinal: No Symptoms Genitourinary Symptoms: No Symptoms Musculoskeletal: No Symptoms Skin: No Symptoms Neurological: No Symptoms Endocrine: No Symptoms Hematologic/Lymphatic: No Symptoms - Past Medical History Pertinent Past Medical History: Yes Neurological History: No Pertinent History ENT History: No Pertinent History Cardiac History: High Cholesterol, Hypertension Respiratory History: No Pertinent History Endocrine Medical History: No Pertinent History Musculoskeletal History: No Pertinent History GI Medical History: No Pertinent History History: Other Psycho-Social History: Depression Female Reproductive Disorders: No Pertinent History Other Medical History: tomeka pouch - Past Surgical History Past Surgical History: Yes Neuro Surgical History: No Pertinent History Cardiac: No Pertinent History Respiratory: No Pertinent History Gastrointestinal: No Pertinent History Genitourinary: Other Female Surgical History: Dilation & Curettage, Section Other Surgical History: 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 mesh surgery 2012 Significant Family History: heart disease, cancer, stroke - Social History Smoking Status: Never smoker Exposure to second hand smoke: No Drug Use: none Patient Lives Alone: No - Social Determinants of Health Will the patient participate in the screening: Yes Do you worry about a steady place to live?: No Do you have any problems with any of the following?: No known problems In the past 12 months,have you had to go without utilities?: No Transportation Issues: No Has anyone in your support network made you feel unsafe?: No Have you or anyone in your house had to go without enough: No - Nursing Vital Signs Nursing Vital Signs: Initial Vital Signs Temperature 97.4 F 07/22/24 16:36 Pulse Rate 93 H 07/22/24 16:36 Respiratory Rate 18 07/22/24 16:36 O2 Sat by Pulse Oximetry 99 07/22/24 16:36 Pain Scale Pain Intensity 0 - Physical Exam General Appearance: no apparent distress, alert Eye Exam: PERRL/EOMI Ears, Nose, Throat Exam: normal ENT inspection Neck Exam: normal inspection, non-tender, supple, full range of motion Respiratory Exam: normal breath sounds, lungs clear Cardiovascular Exam: regular rate/rhythm, normal heart sounds Gastrointestinal/Abdomen Exam: soft, normal bowel sounds, No tenderness Back Exam: normal inspection, normal range of motion Extremity Exam: normal inspection, normal range of motion Neurologic Exam: alert, oriented x 3, cooperative, shelter advocate II-XII nml as tested, normal mood/affect, nml cerebellar function, nml station & gait, sensation nml, No motor deficits Skin Exam: normal color SpO2 Interpretation: normal SpO2: 99 O2 Delivery: Room Air - Course EKG Interpreted by Me: RATE, Sinus Rhythm, Right Bundle Branch Block, Non- specific ST Changes Ordered Tests: Active Orders 24 hr Category Date Time Status CHEST 1 VIEW (PORTABLE) Stat Exams 07/22/24 16:42 Completed CBC W DIFF Stat Lab 07/22/24 17:02 Completed CMP Stat Lab 07/22/24 17:02 Completed NT PRO BNPII Stat Lab 07/22/24 17:02 Completed TROPONIN Q4H Lab 07/22/24 17:02 Completed TROPONIN Q4H Lab 07/22/24 20:45 Ordered TROPONIN Q4H Lab 07/23/24 00:45 Ordered Medication Summary Discontinued Medications Generic Name Dose Route Start Last Admin Trade Name Larisa PRN Reason Stop Dose Admin Clonidine 0.2 mg 07/22/24 17:23 07/22/24 17:27 Clonidine Hcl 0.1 Mg Tablet PO 07/22/24 17:24 0.2 mg STAT ONE Administration Clonidine Confirm 07/22/24 17:26 Clonidine Hcl 0.1 Mg Tablet Administered 07/22/24 17:27 Dose 0.2 mg .ROUTE .STK-MED ONE Lab/Rad Data: Laboratory Result Diagrams 07/22/24 17:02 07/22/24 17:02 Laboratory Results 07/22/24 07/22/24 07/22/24 Range/Units 17:02 17:02 17:02 WBC 5.4 (3.98-10.04) x10^3/uL RBC 4.26 (3.93-5.22) x10^6/uL Hgb 11.9 (11.2-15.7) g/dL Hct 35.7 (34.1-44.9) % MCV 83.8 (79.4-94.8) fL MCH 27.9 (25.6-32.2) pg MCHC 33.3 (32.2-35.5) g/dL RDW 14.4 (11.7-14.4) % Plt Count 220 (182-369) x10^3/uL MPV 9.7 (9.4-12.3) fL Gran % 66.4 (34.0-71.1) % Immature Gran % (Auto) 0.4 (0.001-0.429) % Nucleat RBC Rel Count 0.0 (0.00-0.2) % Eos # (Auto) 0.28 (0.04-0.36) x10^3/uL Immature Gran # (Auto) 0.02 (0.001-0.031) x10^3u/L Absolute Lymphs (auto) 1.07 L (1.18-3.74) x10^3/uL Absolute Monos (auto) 0.39 (0.24-0.86) x10^3/uL Absolute Nucleated RBC 0.00 (0.00-0.012) x10^3u/L Lymphocytes % 20.0 (19.3-51.7) % Monocytes % 7.3 (4.7-12.5) % Eosinophils % 5.2 (0.7-5.8) % Basophils % 0.7 (0.1-1.2) % Absolute Granulocytes 3.55 (1.56-6.13) x10^3/uL Basophils # 0.04 (0.01-0.08) x10^3/uL Sodium 140 (135-145) mmol/L Potassium 4.2 (3.5-5.1) mmol/L Chloride 106 (98-107) mmol/L Carbon Dioxide 26 (22-30) mmol/L Anion Gap 12.4 (5-15) MEQ/L BUN 21 H (7-17) mg/dL Creatinine 1.32 H (0.52-1.04) mg/dL Estimated GFR 46.5 ML/MIN Glucose 143 H (74-106) mg/dL Calcium 9.6 (8.4-10.2) mg/dL Total Bilirubin 0.30 (0.2-1.3) mg/dL AST 29 (14-36) U/L ALT 19 (0-35) U/L Alkaline Phosphatase 85 (38-126) U/L Troponin I 0.014 (0.000-0.033) ng/mL NT-Pro-B Natriuret Pep 755 (<300) pg/mL Serum Total Protein 7.3 (6.3-8.2) g/dL Albumin 4.3 (3.5-5.0) g/dL - Progress Progress: improved Progress Note: 07/22/24 19:15 59-year-old with history of hypertension is sent in ER and evaluated for uncontrolled hypertension from the therapy office. Patient has history of whitecoat hypertension. Nonfocal neuroexam, no signs/symptoms of endorgan damage. EKG is sinus rhythm with right bundle branch block and no ST elevations. Workup showed normal white count, unremarkable chemistries, chest x-ray negative for any acute cardiopulmonary abnormalities. Patient is given clonidine and blood pressure improved in 160s. She remained asymptomatic. She is thoroughly counseled about dietary modification, medication compliant and outpatient follow-up. Do not think patient needs any other workup and is stable for discharge. Dis cussed signs symptoms of worsening needing return to ER which she seems understanding. Counseled pt/family regarding: lab results, diagnosis, need for follow-up, rad results Medical Desision Making - Diagnostic Testing Diagnostic test were ordered, analyzed, and reviewed by me: Yes Radiological Interpretation: Reviewed by me - Risk of complications The pt has a mod risk of morbidity or mortality based on: Need for prescription drug management - Departure Departure Disposition: Home Clinical Impression: Uncontrolled hypertension Condition: Stable Critical Care Time: No Referrals: HAMIDA SINCLAIR NP [Primary Care Provider] - Follow up with PCP 1 day Instructions: Malignant Hypertension (DC) Additional Instructions: Take low-salt diet, regular exercise, weight loss, keep a log of your blood pressure and follow-up with primary care for reevaluation. Return to ER for persistent high blood pressure, having headache, chest pain, difficulty sonia thing, numbness tingling focal weakness etc.
== END 2024-07-22 19:28 | disposition home or self-care (01) ==
LOC: ED 16:30
DX: I10 Essential (primary) hypertension (principal); E78.5 Hyperlipidemia, unspecified; Z79.899 Other long term (current) drug therapy
CPT/HCPCS: 36415; 71045; 80053; 83880; 84484; 85025; 99283; 99284; A9270-GY

== ENCOUNTER 2025-06-22 01:45 | Observation (INO) | payer OTHER ==
--- NOTE | 2025-06-22 02:26 | ERPHSYRPT ---
- History of Present Illness Time Seen by Provider: 06/22/25 02:22 Source: patient Exam Limitations: no limitations Patient Subjective Stated Complaint: "I was sitting down to read and my nose started to bleed all of a sudden, it's been bleeding for about an hour and a half. I've had nose bleeds before but never this long". Triage Nursing Assessment: Pt presents to ER by private vehicle with complaints of nose bleed that has lasted approx 1.5 hours. Pt denies any trauma. Pt's nose is not actively bleeding at this time. Pt states the bleeding started in the left nare. Pt is hypertensive upon triage. Skin is pink, warm, and dry. Pt denies pain. Denies lightheadedness or dizziness. Respirations are easy and unlabored at this time. Pt is alert and oriented x 3. Physician History: 60-year-old female history of hypertension hyperlipidemia CABG on Eliquis presents to our ED for nosebleed. Patient states she has never had a nosebleed in the past. Symptoms started about 1.5 hours prior to arrival. However upon arrival to our ED nosebleed spontaneously resolved. Nosebleed was through her left nare. During triage we observed patient's blood pressure to be elevated. Patient otherwise asymptomatic. No chest pain or shortness of breath. No nausea vomiting or diaphoresis. Patient otherwise feels well. She voices no other complaints or concerns at this time. Portions of this note were created with voice recognition technology. There may be grammatical, spelling, punctuation or sound alike errors Timing/Duration: today Severity: moderate Associated Symptoms: vomiting Allergies/Adverse Reactions: adhesive tape Allergy (Verified 07/22/24 16:36) cephalexin [From Keflex] Allergy (Verified 07/22/24 16:36) Home Medications: Clonidine HCl 0.1 mg [Clonidine 0.1 mg Tablet] 0.2 mg PO BID 10/10/23 [History] Topiramate 50 mg PO BID 06/23/24 [History] Apixaban [Eliquis 2.5 mg Tablet] 5 mg PO BID 06/22/25 [History] Ascorbic Acid 500 mg [Vitamin C 500 MG] 1,000 mg PO DAILY 06/22/25 [History] Aspirin EC 81 mg [Ecotrin 81 mg] 81 mg PO DAILY 06/22/25 [History] Atorvastatin Calcium [Lipitor 40Mg] 40 mg PO DAILY 06/22/25 [History] Cholecalciferol (Vitamin D3) [Vitamin D3] 50 mcg PO DAILY 06/22/25 [History] Ferrous Sulfate 325 mg [Feosol 325 mg] 325 mg PO DAILY 06/22/25 [History] Valsartan [Diovan] 80 mg PO BID 06/22/25 [History] Hx Tetanus, Diphtheria Vaccination/Date Given: No Hx Influenza Vaccination/Date Given: No Hx Pneumococcal Vaccination/Date Given: No Immunizations Up to Date: No Travel Risk - International Travel Have you traveled outside of the country in past 3 weeks: No - Emerging Infectious Disease Are you exhibiting symptoms associated with any current EIDs: No Symptoms: Diarrhea - Review of Systems All Other Systems: Reviewed and Negative - Past Medical History Pertinent Past Medical History: Yes Neurological History: No Pertinent History ENT History: No Pertinent History Cardiac History: High Cholesterol, Hypertension Respiratory History: No Pertinent History Endocrine Medical History: No Pertinent History Musculoskeletal History: No Pertinent History GI Medical History: No Pertinent History History: Other Psycho-Social History: Depression Female Reproductive Disorders: No Pertinent History Other Medical History: tomeka pouch - Past Surgical History Past Surgical History: Yes Neuro Surgical History: No Pertinent History Cardiac: CABG Respiratory: No Pertinent History Gastrointestinal: No Pertinent History Genitourinary: Other Musculoskeletal: No Pertinent History Female Surgical History: Dilation & Curettage, Section Other Surgical History: 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 mesh surgery 2012 Significant Family History: heart disease, cancer, stroke - Social History Smoking Status: Never smoker Exposure to second hand smoke: No Drug Use: none - Social Determinants of Health Will the patient participate in the screening: Yes Do you worry about a steady place to live?: No Do you have any problems with any of the following?: No known problems In the past 12 months,have you had to go without utilities?: No Transportation Issues: No Has anyone in your support network made you feel unsafe?: No Have you or anyone in your house had to go w/o enough food: No - Nursing Vital Signs Nursing Vital Signs: Initial Vital Signs Temperature 96.5 F 06/22/25 02:00 Pulse Rate 78 06/22/25 02:00 Respiratory Rate 18 06/22/25 02:00 Blood Pressure 207/118 06/22/25 02:00 O2 Sat by Pulse Oximetry 97 06/22/25 02:00 Pain Scale Pain Intensity 0 - Physical Exam General Appearance: no apparent distress, alert Eye Exam: PERRL/EOMI, eyes nml inspection Ears, Nose, Throat Exam: normal ENT inspection, moist mucous membranes Neck Exam: normal inspection, full range of motion Respiratory Exam: normal breath sounds, lungs clear, airway intact, No respiratory distress Cardiovascular Exam: regular rate/rhythm, normal heart sounds, normal peripheral pulses Gastrointestinal/Abdomen Exam: soft, normal bowel sounds, No tenderness, No mass Back Exam: normal inspection, normal range of motion, No CVA tenderness, No vertebral tenderness Extremity Exam: normal inspection, normal range of motion, pelvis stable Neurologic Exam: alert, oriented x 3, cooperative, normal mood/affect, sensation nml, No motor deficits Skin Exam: normal color, warm, dry, No rash Lymphatic Exam: No adenopathy SpO2 Interpretation: normal SpO2: 96 O2 Delivery: Room Air - Course Nursing assessment & vital signs reviewed: Yes EKG Interpreted by Me: RATE (80), Sinus Rhythm, LAFB, NORMAL INTERVALS, Right Bundle Branch Block Ordered Tests: Active Orders 24 hr Category Date Time Status Apply Nose Clip STAT Care 06/22/25 04:28 Active Submarine Diver STAT Care 06/22/25 04:25 Active EKG-ER Only STAT Care 06/22/25 04:24 Completed IV Insertion STAT Care 06/22/25 05:51 Active Pulse Oximetry (ED) STAT Care 06/22/25 04:24 Active CBC W DIFF Stat Lab 06/22/25 04:42 Completed CMP Stat Lab 06/22/25 04:42 Completed TROPONIN Q4H Lab 06/22/25 04:42 Completed TROPONIN Q4H Lab 06/22/25 08:30 Ordered TROPONIN Q4H Lab 06/22/25 12:30 Ordered Transfer Order Routine Transfer 06/22/25 Ordered Medication Summary Generic Name Dose Route Start Last Admin Trade Name Freq PRN Reason Stop Dose Admin Nicardipine HCl 25 mg/ Sodium 250 mls @ 50 mls/hr 06/22/25 05:36 06/22/25 05:54 Chloride IV 07/22/25 05:35 50 mls/hr .Q5H PRN 50 mls/hr HYPERTENSION Administration Protocol Discontinued Medications Generic Name Dose Route Start Last Admin Trade Name Larisa PRN Reason Stop Dose Admin TRANEXAMIC ACID IN NACL,ISO-OS 1,000 mg in 100 mls @ 600 mls/hr 06/22/25 05:19 06/22/25 05:24 Tranexamic 1,000 Mg/100ml-Nacl IV 06/22/25 05:28 Infused ONCE ONE Infusion TRANEXAMIC ACID IN NACL,ISO-OS Confirm 06/22/25 05:21 Tranexamic 1,000 Mg/100ml-Nacl Administered 06/22/25 05:22 Dose 1,000 mg in 100 mls @ ud IV .STK-MED ONE Sodium Chloride Confirm 06/22/25 05:40 Sodium Chloride 0.9% 250 Ml Administered 06/22/25 05:41 Dose 250 mls @ ud IV .STK-MED ONE Nicardipine HCl Confirm 06/22/25 05:40 Nicardipine Hcl 25mg/10ml Vial Administered 06/22/25 05:41 Dose 25 mg IV .STK-MED ONE Tranexamic Acid Confirm 06/22/25 05:25 Tranexamic Acid 1000 Mg/10 Ml Vial/Amp Administered 06/22/25 05:26 Dose 1,000 mg .ROUTE .STK-MED ONE Lab/Rad Data: Laboratory Result Diagrams 06/22/25 04:42 06/22/25 04:42 Laboratory Results 06/22/25 06/22/25 06/22/25 Range/Units 04:42 04:42 04:42 WBC 8.9 (3.98-10.04) x10^3/uL RBC 4.17 (3.93-5.22) x10^6/uL Hgb 11.9 (11.2-15.7) g/dL Hct 37.0 (34.1-44.9) % MCV 88.7 (79.4-94.8) fL MCH 28.5 (25.6-32.2) pg MCHC 32.2 (32.2-35.5) g/dL RDW 14.4 (11.7-14.4) % Plt Count 204 (182-369) x10^3/uL MPV 11.2 (9.4-12.3) fL Gran % 75.3 H (34.0-71.1) % Immature Gran % (Auto) 0.3 (0.001-0.429) % Nucleat RBC Rel Count 0.0 (0.00-0.2) % Eos # (Auto) 0.25 (0.04-0.36) x10^3/uL Immature Gran # (Auto) 0.03 (0.001-0.031) x10^3u/L Absolute Lymphs (auto) 1.31 (1.18-3.74) x10^3/uL Absolute Monos (auto) 0.54 (0.24-0.86) x10^3/uL Absolute Nucleated RBC 0.00 (0.00-0.012) x10^3u/L Lymphocytes % 14.8 L (19.3-51.7) % Monocytes % 6.1 (4.7-12.5) % Eosinophils % 2.8 (0.7-5.8) % Basophils % 0.7 (0.1-1.2) % Absolute Granulocytes 6.66 H (1.56-6.13) x10^3/uL Basophils # 0.06 (0.01-0.08) x10^3/uL Sodium 144 (135-145) mmol/L Potassium 4.1 (3.5-5.1) mmol/L Chloride 108 H (98-107) mmol/L Carbon Dioxide 24 (22-30) mmol/L Anion Gap 16.0 H (5-15) MEQ/L BUN 19 H (7-17) mg/dL Creatinine 1.28 H (0.52-1.04) mg/dL Estimated GFR 48.0 ML/MIN Glucose 113 H (74-106) mg/dL Calcium 10.0 (8.4-10.2) mg/dL Total Bilirubin 0.40 (0.2-1.3) mg/dL AST 36 (14-36) U/L ALT 33 (0-35) U/L Alkaline Phosphatase 123 (38-126) U/L Troponin I < 0.012 (0.000-0.033) ng/mL Serum Total Protein 7.5 (6.3-8.2) g/dL Albumin 4.5 (3.5-5.0) g/dL - Progress Progress: improved Progress Note: Case discussed with hospitalist Dr. Jeronimo for admission to observation at 5:56 AM. Plan of care discussed with patient. She agrees to admission at [facility] for further evaluation and treatment. 06/22/25 06:02 60-year-old female history of hypertension hyperlipidemia CABG on Eliquis presents to our ED for nosebleed. Patient states she has never had a nosebleed in the past. Symptoms started about 1.5 hours prior to arrival. However upon arrival to our ED nosebleed spontaneously resolved. Nosebleed was through her left nare. During triage we observed patient's blood pressure to be elevated. Patient otherwise asymptomatic. No chest pain or shortness of breath. No nausea vomiting or diaphoresis. Patient otherwise feels well. Physical exam reveals bleeding through the left nare. Patient's blood pressure significantly elevated as well. Systolic as high as 247. We manage nosebleed with nose clamps then with TXA soaked gauze. Patient received her home dose of clonidine 0.2 mg and her valsartan 80 mg. Patient observed however blood pressure remained elevated and patient continued to experience epistaxis. The decision was made to initiate nicardipine. Patient currently has TXA left nasal packing in place. No active bleeding at this time. Systolic blood pressure down to 200. Laboratory workup otherwise nonremarkable. BUN and creatinine are elevated but this is at her baseline. Patient will be admitted for further evaluation and treatment. History obtained from patient and family member at bedside. Differential diagnosis includes epistaxis, hypocoagulable, nasal trauma Complexity of problems addressed is moderate acute complicated. No critical care time. Complexity of data reviewed and analyzed is extensive. Test ordered test reviewed results analyzed and correlated clinically with history and physical exam. Risk of complication and or risk of morbidity/mortality of patient management is high. Patient requires hospitalization for further evaluation and treatment. Vital stable. Time spent to admit patient is approximately 20 minutes. Plan of care established for shared decision making. No social determinants of health present to impede follow-up. Portions of this note were created with voice recognition technology. There may be grammatical, spelling, punctuation or sound alike errors 06/22/25 06:03 06/22/25 06:06 Counseled pt/family regarding: lab results, diagnosis, need for follow-up - Departure Departure Disposition: Observation Clinical Impression: Hypertensive urgency, Epistaxis Condition: Stable Critical Care Time: No Referrals: HAMIDA SINCLAIR NP [Primary Care Provider, [facility]] - Follow up/PCP as directed
[2025-06-22 04:47] LABS: BASOPHIL % 0.7 % (0.1-1.2); Basophil (Absolute #) 0.06 x10^3/uL (0.01-0.08); Eosinophil (Absolute #) 0.25 x10^3/uL (0.04-0.36); Hematocrit 37.0 % (34.1-44.9); Hemoglobin 11.9 g/dL (11.2-15.7); IMMATURE GRAN # 0.03 x10^3u/L (0.001-0.031); IMMATURE GRAN % 0.3 % (0.001-0.429); Lymphocyte (Absolute #) 1.31 x10^3/uL (1.18-3.74); Mean Corpuscular Hemoglobin 28.5 pg (25.6-32.2); Mean Corpuscular Hgb Concent. 32.2 g/dL (32.2-35.5); Monocyte (Absolute #) 0.54 x10^3/uL (0.24-0.86); NUCLEATED RBC # 0.00 x10^3u/L (0.00-0.012); NUCLEATED RBC % 0.0 % (0.00-0.2); Platelet Count 204 x10^3/uL (182-369); Red Blood Count 4.17 x10^6/uL (3.93-5.22); White Blood Count 8.9 x10^3/uL (3.98-10.04)
[2025-06-22 04:57] LABS: Calcium 10.0 mg/dL (8.4-10.2); Carbon Dioxide 24.0 mmol/L (22-30); Creatinine 1 1.28 mg/dL (0.52-1.04); EST GLOMERULAR FILTRATION RATE 48.0 ML/MIN; Glucose 113.0 mg/dL (74-106); Potassium 4.1 mmol/L (3.5-5.1); SGOT/AST 36.0 U/L (14-36); SGPT/ALT 33.0 U/L (0-35); Total Protein 7.5 g/dL (6.3-8.2)
[2025-06-22] MEDS ORDERED: TRANEXAMIC IV ONE (05:21)
[2025-06-22] MEDS ORDERED: [UNRECOGNIZED DRUG - OTHER] IV ONE (05:21)
[2025-06-22] MEDS ORDERED: PIGGYBACK IV ONE (05:21)
[2025-06-22] MEDS: TRANEXAMIC 1,000 MG/100ML-NACL 1,000 MG/100 ML PIGGYBACK IV ONE (05:23)
[2025-06-22] MEDS ORDERED: TRANEXAMIC ACID 1000 MG/10 ML ONE (05:25)
[2025-06-22] MEDS ORDERED: CARDENE IV ONE (05:40)
[2025-06-22] MEDS: CARDENE*** 25 MG in Sodium Chloride 0.9% 250 ML 240 ML IV PRN (05:54)
--- NOTE | 2025-06-22 10:35 | PCM.HP ---
History of Present Illness - Chief Complaint Chief Complaint: Hypertension urgency/epitaxis Date: 06/22/25 History of Present Illness: is a 60 year old female with a pmhx of coronary artery disease status post CABG in 2024 (Dr. Martin), longstanding hypertension, hyperlipidemia, and [place] pouch urinary diversion with self-catheterization every 24 hours, who presented to the emergency department on 06-22-25 with acute onset epistaxis. She reports a spontaneous nosebleed that began approximately one and a half hours prior to arrival, without antecedent trauma, nose picking, recent upper respiratory infection, or known sinus disease. She has never experienced a nosebleed before, and the acuity and persistence prompted her to seek emergent care. On arrival to the ED, she was found to have severely elevated blood pressure with an initial reading of 207/118, though she otherwise appeared clinically stable with no tachycardia, fever, or respiratory distress. She denied chest pain, dyspnea, palpitations, neurologic deficits, nausea, vomiting, diarrhea, visual changes, confusion, or altered speech. She reports taking apixaban (Eliquis) at home but is unclear on the indication, denying any prior venous thromboembolism or known atrial fibrillation; she does, however, have a history of coronary artery disease and recent CABG. I Her blood pressure remained severely elevated despite administration of her home oral clonidine 0.2 and valsartan 80, with no appreciable improvement in pressures. Given persistent severe hypertension, the decision was made to initiate an intravenous nicardipine infusion for blood pressure control. At the time of admission, there was no ongoing epistaxis and no evidence of hemodynamic instability. Lab findings remarkable for a chloride of 108 and a creatinine of 1.28, which is at or near her reported baseline of approximately 1.2, suggesting stable renal function. EKG demonstrated normal sinus rhythm with a heart rate of 80, left anterior fascicular block, and right bundle branch block, with normal intervals otherwise and no acute ischemic changes, consistent with baseline conduction disease in the setting of prior coronary artery disease and CABG. She remained free of chest pain, shortness of breath, or other ischemic symptoms during her ED stay. Given persistent severe blood pressure elevation requiring intravenous antihypertensive therapy and anticoagulant-associated epistaxis, the patient was admitted for blood pressure control, monitoring for recurrent bleeding, and evaluation of her anticoagulation indication and riskbenefit balance. - Review of Systems Constitutional: No Symptoms Eyes: No Symptoms Ears, Nose, & Throat: Epistaxis Respiratory: No Symptoms Cardiac: No Symptoms Abdominal/Gastrointestinal: No Symptoms Genitourinary Symptoms: No Symptoms Musculoskeletal: No Symptoms Skin: No Symptoms Neurological: No Symptoms Psychological: No Symptoms Endocrine: No Symptoms Hematologic/Lymphatic: No Symptoms Immunological/Allergic: No Symptoms Medications & Allergies Home Medications: Home Medication List Clonidine HCl 0.1 mg [Clonidine 0.1 mg Tablet] 0.2 mg PO BID 10/10/23 [History Confirmed 06/22/25] Topiramate 50 mg PO BID 06/23/24 [History Confirmed 06/22/25] Amiodarone HCl 200 mg PO DAILY 06/22/25 [History Confirmed 06/22/25] Apixaban [Eliquis 2.5 mg Tablet] 5 mg PO BID 06/22/25 [History Confirmed 06/22/25] Ascorbic Acid 500 mg [Vitamin C 500 MG] 1,000 mg PO DAILY 06/22/25 [History Confirmed 06/22/25] Aspirin EC 81 mg [Ecotrin 81 mg] 81 mg PO DAILY 06/22/25 [History Confirmed 06/22/25] Atorvastatin Calcium [Lipitor 40Mg] 40 mg PO DAILY 06/22/25 [History Confirmed 06/22/25] Cholecalciferol (Vitamin D3) [Vitamin D3] 50 mcg PO DAILY 06/22/25 [History Confirmed 06/22/25] Duloxetine HCl 60 mg PO DAILY 06/22/25 [History Confirmed 06/22/25] Ferrous Sulfate 325 mg [Feosol 325 mg] 325 mg PO DAILY 06/22/25 [History Confirmed 06/22/25] Isosorbide Mononitrate 30 mg [Imdur 30 MG] 60 mg PO DAILY 06/22/25 [History Confirmed 06/22/25] Valsartan [Diovan] 80 mg PO BID 06/22/25 [History Confirmed 06/22/25] Allergies/Adverse Reactions: Allergies Allergy/AdvReac Type Severity Reaction Status Date / Time adhesive tape Allergy Verified 06/22/25 07:59 cephalexin [From Keflex] Allergy Vomiting Verified 06/22/25 07:59 - Past Medical History Past Medical History: Yes Neurological History: Migraines ENT History: No Pertinent History Cardiac History: Arrhythmia, High Cholesterol, Hypertension Respiratory History: No Pertinent History Endocrine Medical History: No Pertinent History Musculoskelatal History: No Pertinent History GI Medical History: No Pertinent History History: Other Pyscho-Social History: Depression Reproductive Disorders: No Pertinent History Comment: tomeka pouch- Right side, self caths Q2-4H. Patient is not sure what type of arrythmia - Past Surgical History Past Surgical History: Yes Neuro Surgical History: No Pertinent History Cardiac History: CABG, Cardiac Catheterization Respiratory Surgery: No Pertinent History GI Surgical History: No Pertinent History Genitourinary Surgical Hx: Other Musculskeletal Surgical Hx: No Pertinent History Female Surgical History: Dilation & Curettage, Section Other Surgical History: 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 mesh surgery 2011. 3 c-sections Significant Family History: heart disease, cancer, stroke - Social History Smoking Status: Never smoker Exposure to second hand smoke: No Alcohol: None Drug Use: none - Social Determinants of Health Will the patient participate in the screening: Yes Do you worry about a steady place to live?: Yes Do you have any problems with any of the following?: No known problems In the past 12 months,have you had to go without utilities?: No Have you or anyone in your house had to go without enough: No Transportation Issues: No Has anyone in your support network made you feel unsafe?: No Does the patient want assistance with any of the above?: No - Physical Exam Vital Signs: Vital Signs - 24 hr Temp Pulse Resp BP BP BP Pulse Ox 06/22/25 10:00 68 18 146/82 97 06/22/25 09:30 71 25 H 137/70 95 06/22/25 09:01 71 22 155/68 96 06/22/25 08:31 70 23 164/88 96 06/22/25 07:38 97.5 F 80 16 170/90 97 06/22/25 07:21 73 06/22/25 07:00 162/92 06/22/25 06:45 87 16 167/89 96 06/22/25 06:30 80 24 180/99 95 06/22/25 06:22 83 20 193/95 95 06/22/25 06:21 96 06/22/25 06:00 78 24 205/107 96 06/22/25 05:50 76 16 201/134 98 06/22/25 05:31 79 16 209/122 95 06/22/25 05:20 79 14 225/115 96 06/22/25 05:00 80 14 247/144 97 06/22/25 04:30 80 15 231/127 99 06/22/25 04:24 73 L 06/22/25 04:00 66 20 232/101 99 06/22/25 03:53 72 18 227/97 99 06/22/25 03:30 68 18 208/90 99 06/22/25 03:04 70 17 209/103 97 06/22/25 02:30 66 19 201/96 97 06/22/25 02:02 70 15 207/118 96 06/22/25 02:00 96.5 F 78 18 207/118 97 General Appearance: no apparent distress Neurologic Exam: alert, oriented x 3, cooperative Eye Exam: PERRL/EOMI Ears, Nose, Throat Exam: other (Left nare with TMX gauze packed blood tinged) Neck Exam: normal inspection Respiratory Exam: normal breath sounds, lungs clear Cardiovascular Exam: regular rate/rhythm, normal heart sounds Gastrointestinal/Abdomen Exam: soft, normal bowel sounds Pelvic Exam: not done Rectal Exam: deferred Back Exam: normal inspection Extremity Exam: normal inspection Skin Exam: normal color Results - Labs Lab/Micro Results: Lab Results-Last 24 Hours 06/22/25 06/22/25 06/22/25 Range/Units 04:42 04:42 04:42 WBC 8.9 (3.98-10.04) x10^3/uL RBC 4.17 (3.93-5.22) x10^6/uL Hgb 11.9 (11.2-15.7) g/dL Hct 37.0 (34.1-44.9) % MCV 88.7 (79.4-94.8) fL MCH 28.5 (25.6-32.2) pg MCHC 32.2 (32.2-35.5) g/dL RDW 14.4 (11.7-14.4) % Plt Count 204 (182-369) x10^3/uL MPV 11.2 (9.4-12.3) fL Gran % 75.3 H (34.0-71.1) % Immature Gran % (Auto) 0.3 (0.001-0.429) % Nucleat RBC Rel Count 0.0 (0.00-0.2) % Eos # (Auto) 0.25 (0.04-0.36) x10^3/uL Immature Gran # (Auto) 0.03 (0.001-0.031) x10^3u/L Absolute Lymphs (auto) 1.31 (1.18-3.74) x10^3/uL Absolute Monos (auto) 0.54 (0.24-0.86) x10^3/uL Absolute Nucleated RBC 0.00 (0.00-0.012) x10^3u/L Lymphocytes % 14.8 L (19.3-51.7) % Monocytes % 6.1 (4.7-12.5) % Eosinophils % 2.8 (0.7-5.8) % Basophils % 0.7 (0.1-1.2) % Absolute Granulocytes 6.66 H (1.56-6.13) x10^3/uL Basophils # 0.06 (0.01-0.08) x10^3/uL Sodium 144 (135-145) mmol/L Potassium 4.1 (3.5-5.1) mmol/L Chloride 108 H (98-107) mmol/L Carbon Dioxide 24 (22-30) mmol/L Anion Gap 16.0 H (5-15) MEQ/L BUN 19 H (7-17) mg/dL Creatinine 1.28 H (0.52-1.04) mg/dL Estimated GFR 48.0 ML/MIN Glucose 113 H (74-106) mg/dL Calcium 10.0 (8.4-10.2) mg/dL Total Bilirubin 0.40 (0.2-1.3) mg/dL AST 36 (14-36) U/L ALT 33 (0-35) U/L Alkaline Phosphatase 123 (38-126) U/L Troponin I < 0.012 (0.000-0.033) ng/mL Troponin I High Sens (<2.9-14) ng/mL Serum Total Protein 7.5 (6.3-8.2) g/dL Albumin 4.5 (3.5-5.0) g/dL 06/22/25 06/22/25 Range/Units 04:42 08:26 WBC (3.98-10.04) x10^3/uL RBC (3.93-5.22) x10^6/uL Hgb (11.2-15.7) g/dL Hct (34.1-44.9) % MCV (79.4-94.8) fL MCH (25.6-32.2) pg MCHC (32.2-35.5) g/dL RDW (11.7-14.4) % Plt Count (182-369) x10^3/uL MPV (9.4-12.3) fL Gran % (34.0-71.1) % Immature Gran % (Auto) (0.001-0.429) % Nucleat RBC Rel Count (0.00-0.2) % Eos # (Auto) (0.04-0.36) x10^3/uL Immature Gran # (Auto) (0.001-0.031) x10^3u/L Absolute Lymphs (auto) (1.18-3.74) x10^3/uL Absolute Monos (auto) (0.24-0.86) x10^3/uL Absolute Nucleated RBC (0.00-0.012) x10^3u/L Lymphocytes % (19.3-51.7) % Monocytes % (4.7-12.5) % Eosinophils % (0.7-5.8) % Basophils % (0.1-1.2) % Absolute Granulocytes (1.56-6.13) x10^3/uL Basophils # (0.01-0.08) x10^3/uL Sodium (135-145) mmol/L Potassium (3.5-5.1) mmol/L Chloride (98-107) mmol/L Carbon Dioxide (22-30) mmol/L Anion Gap (5-15) MEQ/L BUN (7-17) mg/dL Creatinine (0.52-1.04) mg/dL Estimated GFR ML/MIN Glucose (74-106) mg/dL Calcium (8.4-10.2) mg/dL Total Bilirubin (0.2-1.3) mg/dL AST (14-36) U/L ALT (0-35) U/L Alkaline Phosphatase (38-126) U/L Troponin I (0.000-0.033) ng/mL Troponin I High Sens 14.00 14.40 (<2.9-14) ng/mL Serum Total Protein (6.3-8.2) g/dL Albumin (3.5-5.0) g/dL Assessment/Plan (1) Hypertensive urgency Current Visit: Yes Status: Acute Assessment & Plan: -ED BP noted at 207/118 Initial management with her home oral clonidine 0.2 and valsartan 80 in the ED did not result in adequate reduction in blood pressure, prompting escalation to an intravenous nicardipine infusion for more controlled blood pressure lowering. -Continue nicardipine drip- titrate as appropriate and transition to home meds when able -EKG shows no acute ischemic changes, and there is no reported neurologic deficit, which argues against overt stroke or myocardial infarction at this time, but close monitoring is warranted given her CAD and CABG history. -tele Code(s): I16.0 - HYPERTENSIVE URGENCY (2) Epistaxis Current Visit: Yes Status: Acute Assessment & Plan: -TXA-soaked anterior nasal gauze-leave in place if only blood-tinged -Active rebleeding: Repack with TXA gauze + pressure x 20 min -Hold Eliquis during active bleeding -Consider transfer for ENT consult if: Recurrent bleeding;Posterior bleed suspected;Drop in hemoglobin -Resume apixaban only after: BP controlled>24 hrs/No rebleed Code(s): R04.0 - EPISTAXIS (3) CKD (chronic kidney disease) Current Visit: Yes Status: Acute Assessment & Plan: -at baseline creat 1.2 -Avoid nephrotoxic agents -monitor renal/lytes Code(s): N18.9 - CHRONIC KIDNEY DISEASE, UNSPECIFIED (4) Intermittent self-catheterization of bladder Current Visit: Yes Status: Acute Assessment & Plan: -Patient to self cath as normally scheduled Code(s): Z78.9 - OTHER SPECIFIED HEALTH STATUS (5) Chronic anticoagulation Current Visit: Yes Status: Acute Assessment & Plan: -On eliquis- hold for now- unsure indication Code(s): Z79.01 - SHELTER (CURRENT) USE OF ANTICOAGULANTS (6) HLD (hyperlipidemia) Current Visit: No Status: Chronic Assessment & Plan: -continue home regimen Code(s): E78.5 - HYPERLIPIDEMIA, UNSPECIFIED (7) Hypertension Current Visit: No Status: Chronic Assessment & Plan: -see plan for hypertensive urgency above VTE: SCD PPI: protonix Dispo: 1-2 days Plan of care time spent > 45 mins Full Code Code(s): I10 - ESSENTIAL (PRIMARY) HYPERTENSION
[2025-06-22] MEDS ORDERED: TYLENOL 325 MG PO PRN (10:52)
[2025-06-22] MEDS ORDERED: Zofran 4 MG/2 ML VIAL IV PRN (10:52)
[2025-06-22 11:19] LABS: Hematocrit 34.8 % (34.1-44.9); Hemoglobin 11.1 g/dL (11.2-15.7)
[2025-06-22] MEDS: NORVASC 5 MG PO ONE ×2 (14:47→16:37)
[2025-06-22] MEDS: Cymbalta 30 MG Capsule PO SCH (14:51)
[2025-06-22] MEDS: FEOSOL 325 MG PO SCH (14:51)
[2025-06-22] MEDS: ZOCOR 20MG PO SCH (14:51)
[2025-06-22] MEDS: VITAMIN D PO SCH (14:51)
[2025-06-22] MEDS: TOPIRAMATE PO SCH (14:51)
[2025-06-22] MEDS: DIOVAN 80 MG PO SCH (14:52)
[2025-06-22] MEDS: Vitamin C 500 MG PO SCH (14:52)
[2025-06-22] MEDS: CLONIDINE 0.1 MG TABLET PO SCH (17:21)
--- NOTE | 2025-06-22 18:12 | PCM.CONS ---
History of Present Illness - Date of Consult Date of Encounter: 06/22/25 Consulting Barrel Polisher: SID MOY MD Requesting Provider: Attending Provider: CANDACE EMERSON MD Primary Care Provider: PCP: HAMIDA SINCLAIR Consent was: Given for this tele-med encounter - Consult Narrative Reason for Consult: Hypertenive urgency HPI: Patient is a 60-year-old female with history of CAD S/P CABG 08/2024, paroxysmal atrial tachycardia (atrial fibrillation or atrial flutter history unknown) on Eliquis, CVA 06/2024, hypertension, and hypercholesterolemia who presented with hypertensive urgency and epistaxis. Consultation is requested due to difficult weaning off nicardipine drip. Approximately 1.5 hours prior to admission last night, patient had epistaxis and was not able to control her nosebleed. 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 On arrival her BP was 201/96. It later increased to 231/127. She was stated on a nicardipine infusion at 5 mg/hour. Her SBP decrease to th 140s - 160s. Eliquis was held. When nicardipine was discontinued this afternoon, her BP increased to 180/80 and consultation requested. Initially, I instructed to give metoprolol tartrate 25 mg x1, start amlodipine 5 mg by mouth daily, and increase valsartan to 160 mg by mouth BID. She denies having chest pain, shortness of breath, palpitations, light- headedness, or stroke-like symptoms. Patient is not aware of any history of atrial arrhythmias or why she is on Eliquis or amiodarone. She admits to having poor memory since her CVA in 06/2024. Her aunt sets up her medications weekly in a pill box. She rarely misses doses of her medications. She does watch her salt intake. Her wharf tender helper is Dr. Chao Shoemaker. He told her she had a history of a silent heart attack based on MPS results prior to undergong CABG in 08/2024. cc:: The requesting physician will be sent a copy of the consult. Review of Systems - Review of Systems All systems: all other systems reviewed and were unremarkable (Denies hematemsis, melena, or hematochezia.) - Past Medical History Past Medical History: Yes Neurological History: Migraines, Stroke ENT History: No Pertinent History Cardiac History: Arrhythmia, High Cholesterol, Hypertension Respiratory History: No Pertinent History Endocrine Medical History: No Pertinent History Musculoskelatal History: No Pertinent History GI Medical History: No Pertinent History History: Other Pyscho-Social History: Depression Reproductive Disorders: No Pertinent History Comment: tomeka pouch- Right side, self caths Q2-4H. Patient is not sure what type of arrythmia - Past Surgical History Past Surgical History: Yes Neuro Surgical History: No Pertinent History Cardiac History: CABG, Cardiac Catheterization Respiratory Surgery: No Pertinent History GI Surgical History: No Pertinent History Genitourinary Surgical Hx: Other Musculskeletal Surgical Hx: No Pertinent History Female Surgical History: Dilation & Curettage, Section Other Surgical History: 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 mesh surgery 2011. 3 c-sections Significant Family History: heart disease, cancer, stroke - Social History Smoking Status: Never smoker Exposure to second hand smoke: No Alcohol: None Drug Use: none - Social Determinants of Health Will the patient participate in the screening: Yes Do you worry about a steady place to live?: Yes Do you have any problems with any of the following?: No known problems In the past 12 months,have you had to go without utilities?: No Have you or anyone in your house had to go without enough: No Transportation Issues: No Has anyone in your support network made you feel unsafe?: No Does the patient want assistance with any of the above?: No Medications & Allergies Home Medications: Home Medication List Clonidine HCl 0.1 mg [Clonidine 0.1 mg Tablet] 0.2 mg PO BID 10/10/23 [History Confirmed 06/22/25] Topiramate 50 mg PO BID 06/23/24 [History Confirmed 06/22/25] Amiodarone HCl 200 mg PO DAILY 06/22/25 [History Confirmed 06/22/25] Apixaban [Eliquis 2.5 mg Tablet] 5 mg PO BID 06/22/25 [History Confirmed 06/22/25] Ascorbic Acid 500 mg [Vitamin C 500 MG] 1,000 mg PO DAILY 06/22/25 [History Confirmed 06/22/25] Aspirin EC 81 mg [Ecotrin 81 mg] 81 mg PO DAILY 06/22/25 [History Confirmed 06/22/25] Atorvastatin Calcium [Lipitor 40Mg] 80 mg PO DAILY 06/22/25 [History Confirmed 06/22/25] Cholecalciferol (Vitamin D3) [Vitamin D3] 50 mcg PO DAILY 06/22/25 [History Confirmed 06/22/25] Duloxetine HCl 60 mg PO DAILY 06/22/25 [History Confirmed 06/22/25] Ferrous Sulfate 325 mg [Feosol 325 mg] 325 mg PO DAILY 06/22/25 [History Confirmed 06/22/25] Isosorbide Mononitrate 30 mg [Imdur 30 MG] 60 mg PO DAILY 06/22/25 [History Confirmed 06/22/25] Amlodipine Besylate 5 mg [Norvasc 5 mg] 5 mg PO QAM 30 Days #30 tablet 06/23/25 [Rx] Metoprolol Succinate 12.5 mg PO DAILY 30 Days #15 tab 06/23/25 [Rx] Valsartan [Diovan] 160 mg PO BID 30 Days #120 tablet 06/23/25 [Rx] Allergies/Adverse Reactions: Allergies Allergy/AdvReac Type Severity Reaction Status Date / Time adhesive tape Allergy Verified 06/22/25 07:59 cephalexin [From Keflex] Allergy Vomiting Verified 06/22/25 07:59 Exam - Vitals Vital Signs: Vital Signs - 24 hr Temp Pulse Resp BP BP BP Pulse Ox 06/22/25 17:31 73 18 170/110 97 06/22/25 17:17 180/100 06/22/25 17:01 66 15 176/117 100 06/22/25 16:30 67 17 163/87 100 06/22/25 16:00 97.6 F 67 16 150/80 97 06/22/25 15:30 68 16 152/80 99 06/22/25 15:13 84 15 160/98 100 06/22/25 14:30 71 16 129/70 97 06/22/25 14:00 71 18 138/72 95 06/22/25 13:31 71 20 136/79 99 06/22/25 13:00 85 19 147/78 100 06/22/25 12:30 74 14 147/79 95 06/22/25 12:01 97.2 F 79 19 127/75 96 06/22/25 12:00 75 06/22/25 11:30 74 15 131/61 96 06/22/25 11:00 72 14 139/70 91 L 06/22/25 10:30 67 15 130/80 98 06/22/25 10:00 68 18 146/82 97 06/22/25 09:30 71 25 H 137/70 95 06/22/25 09:01 71 22 155/68 96 06/22/25 08:31 70 23 164/88 96 06/22/25 07:38 97.5 F 80 16 170/90 97 06/22/25 07:21 73 06/22/25 07:00 162/92 06/22/25 06:45 87 16 167/89 96 06/22/25 06:30 80 24 180/99 95 06/22/25 06:22 83 20 193/95 95 06/22/25 06:21 96 06/22/25 06:00 78 24 205/107 96 06/22/25 05:50 76 16 201/134 98 06/22/25 05:31 79 16 209/122 95 06/22/25 05:20 79 14 225/115 96 06/22/25 05:00 80 14 247/144 97 06/22/25 04:30 80 15 231/127 99 06/22/25 04:24 73 L 06/22/25 04:00 66 20 232/101 99 06/22/25 03:53 72 18 227/97 99 06/22/25 03:30 68 18 208/90 99 06/22/25 03:04 70 17 209/103 97 06/22/25 02:30 66 19 201/96 97 06/22/25 02:02 70 15 207/118 96 06/22/25 02:00 96.5 F 78 18 207/118 97 General:: no acute distress HEENT: EOMI, No JVD Cardiovascular Exam: regular rate/rhythm, normal heart sounds, No murmur, No friction rub, No gallop Respiratory Exam: lungs clear SpO2: 97 Oxygen Delivery: Nasal Cannula Gastrointestinal/Abdomen Exam: normal bowel sounds Extremity Exam: other (2+ pedal pulses), No edema Neurologic: filling and packing supervisor II-XII grossly intact, appropriate affect, No motor deficits Results Vital Signs: Vital Signs - 24 hr Temp Pulse Resp BP BP BP Pulse Ox 06/22/25 17:31 73 18 170/110 97 06/22/25 17:17 180/100 06/22/25 17:01 66 15 176/117 100 06/22/25 16:30 67 17 163/87 100 06/22/25 16:00 97.6 F 67 16 150/80 97 06/22/25 15:30 68 16 152/80 99 06/22/25 15:13 84 15 160/98 100 06/22/25 14:30 71 16 129/70 97 06/22/25 14:00 71 18 138/72 95 06/22/25 13:31 71 20 136/79 99 06/22/25 13:00 85 19 147/78 100 06/22/25 12:30 74 14 147/79 95 06/22/25 12:01 97.2 F 79 19 127/75 96 06/22/25 12:00 75 06/22/25 11:30 74 15 131/61 96 06/22/25 11:00 72 14 139/70 91 L 06/22/25 10:30 67 15 130/80 98 06/22/25 10:00 68 18 146/82 97 06/22/25 09:30 71 25 H 137/70 95 06/22/25 09:01 71 22 155/68 96 06/22/25 08:31 70 23 164/88 96 06/22/25 07:38 97.5 F 80 16 170/90 97 06/22/25 07:21 73 06/22/25 07:00 162/92 06/22/25 06:45 87 16 167/89 96 06/22/25 06:30 80 24 180/99 95 06/22/25 06:22 83 20 193/95 95 06/22/25 06:21 96 06/22/25 06:00 78 24 205/107 96 06/22/25 05:50 76 16 201/134 98 06/22/25 05:31 79 16 209/122 95 06/22/25 05:20 79 14 225/115 96 06/22/25 05:00 80 14 247/144 97 06/22/25 04:30 80 15 231/127 99 06/22/25 04:24 73 L 06/22/25 04:00 66 20 232/101 99 06/22/25 03:53 72 18 227/97 99 06/22/25 03:30 68 18 208/90 99 06/22/25 03:04 70 17 209/103 97 06/22/25 02:30 66 19 201/96 97 06/22/25 02:02 70 15 207/118 96 06/22/25 02:00 96.5 F 78 18 207/118 97 Pain Assessment - Last Documented Pain Intensity 0 Intake and Output: Intake & Output 06/20/25 06/21/25 06/22/25 06/23/25 11:59 11:59 11:59 11:59 Intake Total 120 596 Output Total 2250 1400 Balance -2130 -804 Weight 80 kg LAB: I have reviewed the Labs in [facility]. Radiology Exams: TTE 06/24/2024: 1. Technically difficult study with limited sensitivity. 2. Normal LV size and systolic function. Moderate to severe LVH c/w hypertensive heart disease. G2 diastolic dysfunction. 3. Normal RV size and systolic function. 4. Denerative AV disease with mild and apparent small mobile echodensity located on the ventricular aspect of the AV (see image #15 and #20). Dx includes degenerative change (calcification) vs. infectious (less likely) 5. Degenerative MV disease with apparent small mobile echodensity located on the atrial aspect of the posterior MV leaflet (see image #15). Dx includes degenerative change (calcification) vs. infectious (less likely). 6. Unable to estimate RVSP due to insufficient TR waveform. 7. Given clinical presentation, recommend JAYLAN for further evaluation of AV/MV findings. Findings and recommendations d/w patient's nurse. Patient describes having a JAYLAN peformed one week before her CABG in 08/2024. Tracing 1 Attestation: I have reviewed this EKG and interpreted as documented below. EKG Narrative: ECGs: 06/22/2025: NSR at 80 bpm. RBBB. LAFB. 07/22/2024: NSR at [address] abnormality. Holter Monitor 06/24/2024 (wore for 17.5 days): 1) NORMAL SINUS RHYTHM. 2) FREQUENT PREMATURE ATRIAL CONTRACTIONS, OCCASIONAL ATRIAL COUPLETS AND 40 EPISODES OF PAROXYSMAL ATRIAL TACHYCARDIA OCCASIONAL WITH ABERRANT CONDUCTION WITH THE LONGEST LASTING FOR ABOUT 41 BEATS WITH THE AVERAGE RATE OF 121 BEATS PER MINUTE. 3) OCCASIONAL PREMATURE VENTRICULAR CONTRACTIONS, RARE VENTRICULAR COUPLETS AND 4 EPISODES 3- TO 6-BEAT VENTRICULAR RUNS. Assessment & Plan (1) Hypertensive urgency Current Visit: Yes Status: Acute Assessment & Plan: Unclear cause for worsening HTN. Patient denies noncompliance with medical therapy or 2 gram sodium diet. BP ara with weaning off of nicardipine infusion but has responded to starting amlodipine, increasing valsartan dose, and initiating metoprolol tartrate. Mild sinus bradycardia secondary to metoprolol + clonidine. Will decide on appropriate metoprolol dose in am after observing overnight heart rate. Code(s): I16.0 - HYPERTENSIVE URGENCY (2) Atherosclerosis of coronary artery bypass graft without angina pectoris Current Visit: Yes Status: Chronic Assessment & Plan: Patient denies any history of angina. CABG was performed following an abnormal MPS. Continue metoprolol and amlodipine started during this hospitalization. Code(s): I25.810 - ATHEROSCLEROSIS OF CABG W/O ANGINA PECTORIS (3) Paroxysmal atrial tachycardia Current Visit: Yes Status: Chronic Assessment & Plan: Documented on 06/2024 Holter monitor. Unclear if patient has also been doumented to have atrial flutter or atrial fibrillation. Continue amiodarone. Low dose metoprolol tartrate given today. Will watch severity of sinus bradycardia while also receiving clonidine. Eliquis currently on hold with presenting epistaxis. - Encounter Encounter: "The entirety of this encounter was performed via Telemedicine using audio and visual " Case discussed with Sharmin Mir NP. Will folow with you. Sid Moy MD [facility] [phone]
[2025-06-22] MEDS: DIOVAN 80 MG PO ONE (18:30)
[2025-06-22] MEDS: Lopressor 25MG Tab PO ONE (18:30)
[2025-06-22] MEDS ORDERED: CLONIDINE 0.1 MG TABLET PO SCH (22:00)
[2025-06-23 04:58] LABS: BASOPHIL % 0.8 % (0.1-1.2); Basophil (Absolute #) 0.05 x10^3/uL (0.01-0.08); Eosinophil (Absolute #) 0.26 x10^3/uL (0.04-0.36); Hematocrit 34.5 % (34.1-44.9); Hemoglobin 10.9 g/dL (11.2-15.7); IMMATURE GRAN # 0.01 x10^3u/L (0.001-0.031); IMMATURE GRAN % 0.2 % (0.001-0.429); Lymphocyte (Absolute #) 1.49 x10^3/uL (1.18-3.74); Mean Corpuscular Hemoglobin 28.2 pg (25.6-32.2); Mean Corpuscular Hgb Concent. 31.6 g/dL (32.2-35.5); Monocyte (Absolute #) 0.41 x10^3/uL (0.24-0.86); NUCLEATED RBC # 0.00 x10^3u/L (0.00-0.012); NUCLEATED RBC % 0.0 % (0.00-0.2); Platelet Count 221 x10^3/uL (182-369); Red Blood Count 3.86 x10^6/uL (3.93-5.22); White Blood Count 6.0 x10^3/uL (3.98-10.04)
[2025-06-23 05:14] LABS: Calcium 9.7 mg/dL (8.4-10.2); Carbon Dioxide 20.0 mmol/L (22-30); Creatinine 1 1.3 mg/dL (0.52-1.04); EST GLOMERULAR FILTRATION RATE 47.1 ML/MIN; Glucose 119.0 mg/dL (74-106); Potassium 3.7 mmol/L (3.5-5.1); SGOT/AST 25.0 U/L (14-36); SGPT/ALT 24.0 U/L (0-35); Total Protein 6.9 g/dL (6.3-8.2)
--- NOTE | 2025-06-23 05:50 | PCM.NOTE ---
Date and Time: 06/23/25 0549 Subjective Assessment: is a 60 year old female with a pmhx of coronary artery disease status post CABG in 2024 (Dr. 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 She reports a spontaneous nosebleed that began approximately one and a half hours prior to arrival, without antecedent trauma, nose picking, recent upper respiratory infection, or known sinus disease. She has never experienced a nosebleed before, and the acuity and persistence prompted her to seek emergent care. On arrival to the ED, she was found to have severely elevated blood pressure with an initial reading of 207/118, though she otherwise appeared clinically stable with no tachycardia, fever, or respiratory distress. She denied chest pain, dyspnea, palpitations, neurologic deficits, nausea, vomiting, diarrhea, visual changes, confusion, or altered speech. She reports taking apixaban (Eliquis) at home but is unclear on the indication, denying any prior venous thromboembolism or known atrial fibrillation; she does, however, have a history of coronary artery disease and recent CABG. I Her blood pressure remained severely elevated despite administration of her home oral clonidine 0.2 and valsartan 80, with no appreciable improvement in pressures. Given persistent severe hypertension, the decision was made to initiate an intravenous nicardipine infusion for blood pressure control. At the time of admission, there was no ongoing epistaxis and no evidence of hemodynamic instability. Lab findings remarkable for a chloride of 108 and a creatinine of 1.28, which is at or near her reported baseline of approximately 1.2, suggesting stable renal function. EKG demonstrated normal sinus rhythm with a heart rate of 80, left anterior fascicular block, and right bundle branch block, with normal intervals otherwise and no acute ischemic changes, consistent with baseline conduction disease in the setting of prior coronary artery disease and CABG. She remained free of chest pain, shortness of breath, or other ischemic symptoms during her ED stay. Given persistent severe blood pressure elevation requiring intravenous antihypertensive therapy and anticoagulant-associated epistaxis, the patient was admitted for blood pressure control, monitoring for recurrent bleeding, and evaluation of her anticoagulation indication and riskbenefit balance. Objective Data Vital Signs: Vital Signs - 24 hr Temp Pulse Resp BP BP Pulse Ox 06/23/25 05:08 53 L 15 203/80 99 06/23/25 04:30 161/76 06/23/25 04:10 97 06/23/25 04:00 98.0 F 52 L 15 172/79 99 06/23/25 03:30 51 L 18 163/74 96 06/23/25 03:00 53 L 17 175/83 97 06/23/25 02:30 56 L 11 L 168/74 97 06/23/25 02:06 54 L 17 175/75 98 06/23/25 02:00 57 L 17 181/73 92 L 06/23/25 01:30 55 L 17 161/80 99 06/23/25 01:01 63 16 160/70 91 L 06/23/25 00:30 54 L 16 175/84 98 06/23/25 00:01 59 L 06/23/25 00:00 98.2 F 56 L 18 180/87 98 06/22/25 23:31 60 22 179/105 99 06/22/25 23:01 65 17 135/73 100 06/22/25 22:30 54 L 5 L 138/68 100 06/22/25 22:00 58 L 19 132/70 99 06/22/25 21:30 64 14 141/69 100 06/22/25 21:01 56 L 10 L 122/63 98 06/22/25 20:31 54 L 180/92 97 06/22/25 20:01 98.1 F 56 L 15 175/86 98 06/22/25 20:00 56 L 06/22/25 19:30 56 L 21 169/101 06/22/25 19:01 61 17 139/80 06/22/25 18:31 67 16 159/81 06/22/25 18:01 67 23 177/77 95 06/22/25 17:31 73 18 170/110 97 06/22/25 17:17 180/100 06/22/25 17:01 66 15 176/117 100 06/22/25 16:30 67 17 163/87 100 06/22/25 16:00 97.6 F 67 16 150/80 97 06/22/25 15:30 68 16 152/80 99 06/22/25 15:13 84 15 160/98 100 06/22/25 14:30 71 16 129/70 97 06/22/25 14:00 71 18 138/72 95 06/22/25 13:31 71 20 136/79 99 06/22/25 13:00 85 19 147/78 100 06/22/25 12:30 74 14 147/79 95 06/22/25 12:01 97.2 F 79 19 127/75 96 06/22/25 12:00 75 06/22/25 11:30 74 15 131/61 96 06/22/25 11:00 72 14 139/70 91 L 06/22/25 10:30 67 15 130/80 98 06/22/25 10:00 68 18 146/82 97 06/22/25 09:30 71 25 H 137/70 95 06/22/25 09:01 71 22 155/68 96 06/22/25 08:31 70 23 164/88 96 06/22/25 07:38 97.5 F 80 16 170/90 97 06/22/25 07:21 73 06/22/25 07:00 162/92 06/22/25 06:45 87 16 167/89 96 06/22/25 06:30 80 24 180/99 95 06/22/25 06:22 83 20 193/95 95 06/22/25 06:21 96 06/22/25 06:00 78 24 205/107 96 06/22/25 05:50 76 16 201/134 98 Pain Assessment - Last Documented Pain Intensity 0 Intake and Output: Intake & Output 06/20/25 06/21/25 06/22/25 06/23/25 11:59 11:59 11:59 11:59 Intake Total 120 956 Output Total 2250 2500 Balance -2130 -1544 Weight 80 kg Lab Results: Lab Results-Last 24 Hours 06/22/25 06/22/25 06/22/25 Range/Units 04:42 08:26 11:17 WBC (3.98-10.04) x10^3/uL RBC (3.93-5.22) x10^6/uL Hgb 11.1 L (11.2-15.7) g/dL Hct 34.8 (34.1-44.9) % MCV (79.4-94.8) fL MCH (25.6-32.2) pg MCHC (32.2-35.5) g/dL RDW (11.7-14.4) % Plt Count (182-369) x10^3/uL MPV (9.4-12.3) fL Gran % (34.0-71.1) % Immature Gran % (Auto) (0.001-0.429) % Nucleat RBC Rel Count (0.00-0.2) % Eos # (Auto) (0.04-0.36) x10^3/uL Immature Gran # (Auto) (0.001-0.031) x10^3u/L Absolute Lymphs (auto) (1.18-3.74) x10^3/uL Absolute Monos (auto) (0.24-0.86) x10^3/uL Absolute Nucleated RBC (0.00-0.012) x10^3u/L Lymphocytes % (19.3-51.7) % Monocytes % (4.7-12.5) % Eosinophils % (0.7-5.8) % Basophils % (0.1-1.2) % Absolute Granulocytes (1.56-6.13) x10^3/uL Basophils # (0.01-0.08) x10^3/uL Sodium (135-145) mmol/L Potassium (3.5-5.1) mmol/L Chloride (98-107) mmol/L Carbon Dioxide (22-30) mmol/L Anion Gap (5-15) MEQ/L BUN (7-17) mg/dL Creatinine (0.52-1.04) mg/dL Estimated GFR ML/MIN Glucose (74-106) mg/dL Calcium (8.4-10.2) mg/dL Total Bilirubin (0.2-1.3) mg/dL AST (14-36) U/L ALT (0-35) U/L Alkaline Phosphatase (38-126) U/L Troponin I (0.000-0.033) ng/mL Troponin I High Sens 14.00 14.40 (<2.9-14) ng/mL Serum Total Protein (6.3-8.2) g/dL Albumin (3.5-5.0) g/dL 06/22/25 06/22/25 06/23/25 Range/Units 12:14 18:10 04:35 WBC 6.0 (3.98-10.04) x10^3/uL RBC 3.86 L (3.93-5.22) x10^6/uL Hgb 10.9 L (11.2-15.7) g/dL Hct 34.5 (34.1-44.9) % MCV 89.4 (79.4-94.8) fL MCH 28.2 (25.6-32.2) pg MCHC 31.6 L (32.2-35.5) g/dL RDW 14.7 H (11.7-14.4) % Plt Count 221 (182-369) x10^3/uL MPV 10.4 (9.4-12.3) fL Gran % 63.2 (34.0-71.1) % Immature Gran % (Auto) 0.2 (0.001-0.429) % Nucleat RBC Rel Count 0.0 (0.00-0.2) % Eos # (Auto) 0.26 (0.04-0.36) x10^3/uL Immature Gran # (Auto) 0.01 (0.001-0.031) x10^3u/L Absolute Lymphs (auto) 1.49 (1.18-3.74) x10^3/uL Absolute Monos (auto) 0.41 (0.24-0.86) x10^3/uL Absolute Nucleated RBC 0.00 (0.00-0.012) x10^3u/L Lymphocytes % 24.7 (19.3-51.7) % Monocytes % 6.8 (4.7-12.5) % Eosinophils % 4.3 (0.7-5.8) % Basophils % 0.8 (0.1-1.2) % Absolute Granulocytes 3.82 (1.56-6.13) x10^3/uL Basophils # 0.05 (0.01-0.08) x10^3/uL Sodium (135-145) mmol/L Potassium (3.5-5.1) mmol/L Chloride (98-107) mmol/L Carbon Dioxide (22-30) mmol/L Anion Gap (5-15) MEQ/L BUN (7-17) mg/dL Creatinine (0.52-1.04) mg/dL Estimated GFR ML/MIN Glucose (74-106) mg/dL Calcium (8.4-10.2) mg/dL Total Bilirubin (0.2-1.3) mg/dL AST (14-36) U/L ALT (0-35) U/L Alkaline Phosphatase (38-126) U/L Troponin I < 0.012 (0.000-0.033) ng/mL Troponin I High Sens 15.4 (<2.9-14) ng/mL Serum Total Protein (6.3-8.2) g/dL Albumin (3.5-5.0) g/dL 06/23/25 Range/Units 04:35 WBC (3.98-10.04) x10^3/uL RBC (3.93-5.22) x10^6/uL Hgb (11.2-15.7) g/dL Hct (34.1-44.9) % MCV (79.4-94.8) fL MCH (25.6-32.2) pg MCHC (32.2-35.5) g/dL RDW (11.7-14.4) % Plt Count (182-369) x10^3/uL MPV (9.4-12.3) fL Gran % (34.0-71.1) % Immature Gran % (Auto) (0.001-0.429) % Nucleat RBC Rel Count (0.00-0.2) % Eos # (Auto) (0.04-0.36) x10^3/uL Immature Gran # (Auto) (0.001-0.031) x10^3u/L Absolute Lymphs (auto) (1.18-3.74) x10^3/uL Absolute Monos (auto) (0.24-0.86) x10^3/uL Absolute Nucleated RBC (0.00-0.012) x10^3u/L Lymphocytes % (19.3-51.7) % Monocytes % (4.7-12.5) % Eosinophils % (0.7-5.8) % Basophils % (0.1-1.2) % Absolute Granulocytes (1.56-6.13) x10^3/uL Basophils # (0.01-0.08) x10^3/uL Sodium 141 (135-145) mmol/L Potassium 3.7 (3.5-5.1) mmol/L Chloride 109 H (98-107) mmol/L Carbon Dioxide 20 L (22-30) mmol/L Anion Gap 15.2 H (5-15) MEQ/L BUN 26 H (7-17) mg/dL Creatinine 1.30 H (0.52-1.04) mg/dL Estimated GFR 47.1 ML/MIN Glucose 119 H (74-106) mg/dL Calcium 9.7 (8.4-10.2) mg/dL Total Bilirubin 0.50 (0.2-1.3) mg/dL AST 25 (14-36) U/L ALT 24 (0-35) U/L Alkaline Phosphatase 82 (38-126) U/L Troponin I (0.000-0.033) ng/mL Troponin I High Sens (<2.9-14) ng/mL Serum Total Protein 6.9 (6.3-8.2) g/dL Albumin 4.1 (3.5-5.0) g/dL Medications: Medications Generic Name Dose Route Start Last Admin Trade Name Freq PRN Reason Stop Dose Admin Acetaminophen 650 mg 06/22/25 10:52 Acetaminophen 325 Mg Tablet PO 07/22/25 10:51 Q4H PRN PRN PAIN, FEVER, HEADACHE Amiodarone HCl 200 mg 06/23/25 10:00 Amiodarone Hcl 200 Mg Tab PO 07/23/25 09:59 DAILY JENNIFER Amlodipine Besylate 5 mg 06/23/25 10:00 Amlodipine Besylate 5 Mg Tablet PO 07/23/25 09:59 QAM [facility] Ascorbic Acid 1,000 mg 06/22/25 15:00 06/22/25 14:52 Ascorbic Acid 500 Mg Tablet PO 07/22/25 14:59 1,000 mg DAILY JENNIFER Administration Cholecalciferol 2,000 unit 06/22/25 15:00 06/22/25 14:51 Cholecalciferol (Vitamin D3) 1000 Unit Tablet PO 07/22/25 14:59 2,000 unit DAILY JENNIFER Administration Clonidine 0.2 mg 06/22/25 17:15 06/22/25 21:59 Clonidine Hcl 0.1 Mg Tablet PO 07/22/25 17:14 Not Given BID JENNIFER Duloxetine HCl 60 mg 06/22/25 15:00 06/22/25 14:51 Duloxetine Hcl 30 Mg Cap PO 07/22/25 14:59 60 mg DAILY JENNIFER Administration Ferrous Sulfate 325 mg 06/22/25 15:00 06/22/25 14:51 Ferrous Sulfate 325 Mg Tablet PO 07/22/25 14:59 325 mg DAILY JENNIFER Administration Nicardipine HCl 25 mg/ Sodium 250 mls @ 50 mls/hr 06/22/25 05:36 06/22/25 16:07 Chloride IV 07/22/25 05:35 0 mls/hr .Q5H PRN 0 mls/hr HYPERTENSION Titration Protocol Metoprolol Tartrate 25 mg 06/22/25 18:27 06/22/25 18:30 Metoprolol Tartrate 25 Mg Tab PO 06/22/25 18:28 25 mg STAT ONE Administration Ondansetron HCl 4 mg 06/22/25 10:52 Ondansetron Hcl 4 Mg/2 Ml Vial IV 07/22/25 10:51 Q6H PRN PRN NAUSEA/VOMITING Simvastatin 40 mg 06/22/25 15:00 06/22/25 14:51 Simvastatin 20 Mg Tablet PO 07/22/25 14:59 40 mg DAILY JENNIFER Administration Topiramate 50 mg 06/22/25 15:00 06/22/25 21:59 Topiramate 50 Mg Tablet PO 07/22/25 14:59 50 mg BID JENNIFER Administration Valsartan 80 mg 06/22/25 18:26 06/22/25 18:30 Valsartan 80 Mg Tablet PO 06/22/25 18:27 80 mg ONCE ONE Administration Valsartan 160 mg 06/23/25 10:00 Valsartan 80 Mg Tablet PO 07/23/25 09:59 BID JENNIFER Discontinued Medications Generic Name Dose Route Start Last Admin Trade Name Freq PRN Reason Stop Dose Admin Amlodipine Besylate 5 mg 06/22/25 14:32 06/22/25 14:47 Amlodipine Besylate 5 Mg Tablet PO 06/22/25 14:33 Not Given STAT ONE Amlodipine Besylate 5 mg 06/22/25 16:31 06/22/25 16:37 Amlodipine Besylate 5 Mg Tablet PO 06/22/25 16:32 5 mg STAT ONE Administration Clonidine 0.2 mg 06/22/25 22:00 Clonidine Hcl 0.1 Mg Tablet PO 07/22/25 21:59 BID JENNIFER TRANEXAMIC ACID IN NACL,ISO-OS 1,000 mg in 100 mls @ 600 mls/hr 06/22/25 05:19 06/22/25 05:24 Tranexamic 1,000 Mg/100ml-Nacl IV 06/22/25 05:28 Infused ONCE ONE Infusion TRANEXAMIC ACID IN NACL,ISO-OS Confirm 06/22/25 05:21 Tranexamic 1,000 Mg/100ml-Nacl Administered 06/22/25 05:22 Dose 1,000 mg in 100 mls @ ud IV .STK-MED ONE Sodium Chloride Confirm 06/22/25 05:40 Sodium Chloride 0.9% 250 Ml Administered 06/22/25 05:41 Dose 250 mls @ ud IV .STK-MED ONE Nicardipine HCl Confirm 06/22/25 05:40 Nicardipine Hcl 25mg/10ml Vial Administered 06/22/25 05:41 Dose 25 mg IV .STK-MED ONE Tranexamic Acid Confirm 06/22/25 05:25 Tranexamic Acid 1000 Mg/10 Ml Vial/Amp Administered 06/22/25 05:26 Dose 1,000 mg .ROUTE .STK-MED ONE Valsartan 80 mg 06/22/25 14:21 06/22/25 14:52 Valsartan 80 Mg Tablet PO 07/22/25 14:20 80 mg BID JENNIFER Administration Assessment/Plan (1) Hypertensive urgency Current Visit: Yes Status: Acute Assessment & Plan: -ED BP noted at 207/118 Initial management with her home oral clonidine 0.2 and valsartan 80 in the ED did not result in adequate reduction in blood pressure, prompting escalation to an intravenous nicardipine infusion for more controlled blood pressure lowering. -Continue nicardipine drip- titrate as appropriate and transition to home meds when able -EKG shows no acute ischemic changes, and there is no reported neurologic deficit, which argues against overt stroke or myocardial infarction at this time, but close monitoring is warranted given her CAD and CABG history. -tele Code(s): I16.0 - HYPERTENSIVE URGENCY (2) Epistaxis Current Visit: Yes Status: Acute Assessment & Plan: -TXA-soaked anterior nasal gauze-leave in place if only blood-tinged -Active rebleeding: Repack with TXA gauze + pressure x 20 min -Hold Eliquis during active bleeding -Consider transfer for ENT consult if: Recurrent bleeding;Posterior bleed suspected;Drop in hemoglobin -Resume apixaban only after: BP controlled>24 hrs/No rebleed Code(s): R04.0 - EPISTAXIS (3) CKD (chronic kidney disease) Current Visit: Yes Status: Acute Assessment & Plan: -at baseline creat 1.2 -Avoid nephrotoxic agents -monitor renal/lytes Code(s): N18.9 - CHRONIC KIDNEY DISEASE, UNSPECIFIED (4) Intermittent self-catheterization of bladder Current Visit: Yes Status: Acute Assessment & Plan: -Patient to self cath as normally scheduled Code(s): Z78.9 - OTHER SPECIFIED HEALTH STATUS (5) Chronic anticoagulation Current Visit: Yes Status: Acute Assessment & Plan: -On eliquis- hold for now- unsure indication Code(s): Z79.01 - DETENTION (CURRENT) USE OF ANTICOAGULANTS (6) HLD (hyperlipidemia) Current Visit: No Status: Chronic Assessment & Plan: -continue home regimen Code(s): E78.5 - HYPERLIPIDEMIA, UNSPECIFIED (7) Hypertension Current Visit: No Status: Chronic Assessment & Plan: -see plan for hypertensive urgency above VTE: SCD PPI: protonix Dispo: 1-2 days Plan of care time spent > 45 mins Full Code Code(s): I16.0 - HYPERTENSIVE URGENCY (2) Epistaxis Current Visit: Yes Status: Acute Code(s): R04.0 - EPISTAXIS (3) CKD (chronic kidney disease) Current Visit: Yes Status: Acute Code(s): N18.9 - CHRONIC KIDNEY DISEASE, UNSPECIFIED (4) Intermittent self-catheterization of bladder Current Visit: Yes Status: Acute Code(s): Z78.9 - OTHER SPECIFIED HEALTH STATUS (5) Chronic anticoagulation Current Visit: Yes Status: Acute Code(s): Z79.01 - DETENTION (CURRENT) USE OF ANTICOAGULANTS (6) HLD (hyperlipidemia) Current Visit: No Status: Chronic Code(s): E78.5 - HYPERLIPIDEMIA, UNSPECIFIED (7) Hypertension Current Visit: No Status: Chronic Code(s): I10 - ESSENTIAL (PRIMARY) HYPERTENSION
[2025-06-23] MEDS: DIOVAN 80 MG PO SCH (08:51)
[2025-06-23] MEDS: Cordarone 200 MG PO SCH (08:53)
[2025-06-23] MEDS: NORVASC 5 MG PO SCH (08:55)
[2025-06-23 09:10] VITALS: TEMP 97.4
--- NOTE | 2025-06-23 13:05 | PCM.NOTE ---
Date and Time: 06/23/25 1301 Subjective Assessment: No further nose bleed since day of presentation. Denies any chest discomfort or shortness of breath. 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, No motor deficits Objective Data Vital Signs: Vital Signs - 24 hr Temp Pulse Resp BP BP Pulse Ox 06/23/25 13:00 97 06/23/25 12:30 56 L 20 165/82 100 06/23/25 12:00 62 12 147/72 100 06/23/25 11:30 51 L 20 158/70 99 06/23/25 11:00 53 L 19 142/78 97 06/23/25 10:30 52 L 20 158/77 98 06/23/25 10:01 55 L 13 161/78 98 06/23/25 09:30 57 L 12 172/81 100 06/23/25 09:00 97.4 F 62 13 94 L 06/23/25 08:30 56 L 15 154/73 97 06/23/25 08:01 58 L 21 145/69 96 06/23/25 08:00 62 06/23/25 07:30 59 L 14 161/71 97 06/23/25 07:00 58 L 17 151/72 99 06/23/25 06:30 62 16 142/83 98 06/23/25 06:00 56 L 7 L 160/67 98 06/23/25 05:31 56 L 8 L 160/77 97 06/23/25 05:08 53 L 15 203/80 99 06/23/25 04:30 161/76 06/23/25 04:00 98.0 F 52 L 15 172/79 99 06/23/25 03:30 51 L 18 163/74 96 06/23/25 03:00 53 L 17 175/83 97 06/23/25 02:30 56 L 11 L 168/74 97 06/23/25 02:06 54 L 17 175/75 98 06/23/25 02:00 57 L 17 181/73 92 L 06/23/25 01:30 55 L 17 161/80 99 06/23/25 01:01 63 16 160/70 91 L 06/23/25 00:30 54 L 16 175/84 98 06/23/25 00:01 59 L 06/23/25 00:00 98.2 F 56 L 18 180/87 98 06/22/25 23:31 60 22 179/105 99 06/22/25 23:01 65 17 135/73 100 06/22/25 22:30 54 L 5 L 138/68 100 06/22/25 22:00 58 L 19 132/70 99 06/22/25 21:30 64 14 141/69 100 06/22/25 21:01 56 L 10 L 122/63 98 06/22/25 20:31 54 L 180/92 97 06/22/25 20:01 98.1 F 56 L 15 175/86 98 06/22/25 20:00 56 L 06/22/25 19:30 56 L 21 169/101 06/22/25 19:01 61 17 139/80 06/22/25 18:31 67 16 159/81 06/22/25 18:01 67 23 177/77 95 06/22/25 17:31 73 18 170/110 97 06/22/25 17:17 180/100 06/22/25 17:01 66 15 176/117 100 06/22/25 16:30 67 17 163/87 100 06/22/25 16:00 97.6 F 67 16 150/80 97 06/22/25 15:30 68 16 152/80 99 06/22/25 15:13 84 15 160/98 100 06/22/25 14:30 71 16 129/70 97 06/22/25 14:00 71 18 138/72 95 06/22/25 13:31 71 20 136/79 99 Pain Assessment - Last Documented Pain Intensity 0 Intake and Output: Intake & Output 06/21/25 06/22/25 06/23/25 06/24/25 11:59 11:59 11:59 11:59 Intake Total 120 1196 Output Total 2250 2500 Balance -2130 -1304 Weight 80 kg 77.7 kg LAB: I have reviewed the Labs in [facility]. Lab Results: Lab Results-Last 24 Hours 06/22/25 06/22/25 06/23/25 Range/Units 12:14 18:10 04:35 WBC 6.0 (3.98-10.04) x10^3/uL RBC 3.86 L (3.93-5.22) x10^6/uL Hgb 10.9 L (11.2-15.7) g/dL Hct 34.5 (34.1-44.9) % MCV 89.4 (79.4-94.8) fL MCH 28.2 (25.6-32.2) pg MCHC 31.6 L (32.2-35.5) g/dL RDW 14.7 H (11.7-14.4) % Plt Count 221 (182-369) x10^3/uL MPV 10.4 (9.4-12.3) fL Gran % 63.2 (34.0-71.1) % Immature Gran % (Auto) 0.2 (0.001-0.429) % Nucleat RBC Rel Count 0.0 (0.00-0.2) % Eos # (Auto) 0.26 (0.04-0.36) x10^3/uL Immature Gran # (Auto) 0.01 (0.001-0.031) x10^3u/L Absolute Lymphs (auto) 1.49 (1.18-3.74) x10^3/uL Absolute Monos (auto) 0.41 (0.24-0.86) x10^3/uL Absolute Nucleated RBC 0.00 (0.00-0.012) x10^3u/L Lymphocytes % 24.7 (19.3-51.7) % Monocytes % 6.8 (4.7-12.5) % Eosinophils % 4.3 (0.7-5.8) % Basophils % 0.8 (0.1-1.2) % Absolute Granulocytes 3.82 (1.56-6.13) x10^3/uL Basophils # 0.05 (0.01-0.08) x10^3/uL Sodium (135-145) mmol/L Potassium (3.5-5.1) mmol/L Chloride (98-107) mmol/L Carbon Dioxide (22-30) mmol/L Anion Gap (5-15) MEQ/L BUN (7-17) mg/dL Creatinine (0.52-1.04) mg/dL Estimated GFR ML/MIN Glucose (74-106) mg/dL Calcium (8.4-10.2) mg/dL Total Bilirubin (0.2-1.3) mg/dL AST (14-36) U/L ALT (0-35) U/L Alkaline Phosphatase (38-126) U/L Troponin I < 0.012 (0.000-0.033) ng/mL Troponin I High Sens 15.4 (<2.9-14) ng/mL Serum Total Protein (6.3-8.2) g/dL Albumin (3.5-5.0) g/dL 06/23/25 Range/Units 04:35 WBC (3.98-10.04) x10^3/uL RBC (3.93-5.22) x10^6/uL Hgb (11.2-15.7) g/dL Hct (34.1-44.9) % MCV (79.4-94.8) fL MCH (25.6-32.2) pg MCHC (32.2-35.5) g/dL RDW (11.7-14.4) % Plt Count (182-369) x10^3/uL MPV (9.4-12.3) fL Gran % (34.0-71.1) % Immature Gran % (Auto) (0.001-0.429) % Nucleat RBC Rel Count (0.00-0.2) % Eos # (Auto) (0.04-0.36) x10^3/uL Immature Gran # (Auto) (0.001-0.031) x10^3u/L Absolute Lymphs (auto) (1.18-3.74) x10^3/uL Absolute Monos (auto) (0.24-0.86) x10^3/uL Absolute Nucleated RBC (0.00-0.012) x10^3u/L Lymphocytes % (19.3-51.7) % Monocytes % (4.7-12.5) % Eosinophils % (0.7-5.8) % Basophils % (0.1-1.2) % Absolute Granulocytes (1.56-6.13) x10^3/uL Basophils # (0.01-0.08) x10^3/uL Sodium 141 (135-145) mmol/L Potassium 3.7 (3.5-5.1) mmol/L Chloride 109 H (98-107) mmol/L Carbon Dioxide 20 L (22-30) mmol/L Anion Gap 15.2 H (5-15) MEQ/L BUN 26 H (7-17) mg/dL Creatinine 1.30 H (0.52-1.04) mg/dL Estimated GFR 47.1 ML/MIN Glucose 119 H (74-106) mg/dL Calcium 9.7 (8.4-10.2) mg/dL Total Bilirubin 0.50 (0.2-1.3) mg/dL AST 25 (14-36) U/L ALT 24 (0-35) U/L Alkaline Phosphatase 82 (38-126) U/L Troponin I (0.000-0.033) ng/mL Troponin I High Sens (<2.9-14) ng/mL Serum Total Protein 6.9 (6.3-8.2) g/dL Albumin 4.1 (3.5-5.0) g/dL Creatinine remains at baseline. Radiology Exams: TTE 06/24/2024 1. Technically difficult study with limited sensitivity. 2. Normal LV size and systolic function. Moderate to severe LVH c/w hypertensive heart disease. G2 diastolic dysfunction. 3. Normal RV size and systolic function. 4. Denerative AV disease with mild and apparent small mobile echodensity located on the ventricular aspect of the AV (see image #15 and #20). Dx includes degenerative change (calcification) vs. infectious (less likely) 5. Degenerative MV disease with apparent small mobile echodensity located on the atrial aspect of the posterior MV leaflet (see image #15). Dx includes degenerative change (calcification) vs. infectious (less likely). 6. Unable to estimate RVSP due to insufficient TR waveform. 7. Given clinical presentation, recommend JAYLAN for further evaluation of AV/MV findings. Findings and recommendations d/w patient's nurse. Tracing 1 Attestation: I have reviewed this EKG and interpreted as documented below. EKG Narrative: ECGs: 06/22/2025: NSR at 80 bpm. RBBB. LAFB. 07/22/2024: NSR at [address] abnormality. Holter Monitor 06/24/2024 (wore for 17.5 days): 1) NORMAL SINUS RHYTHM. 2) FREQUENT PREMATURE ATRIAL CONTRACTIONS, OCCASIONAL ATRIAL COUPLETS AND 40 EPISODES OF PAROXYSMAL ATRIAL TACHYCARDIA OCCASIONAL WITH ABERRANT CONDUCTION W ITH THE LONGEST LASTING FOR ABOUT 41 BEATS WITH THE AVERAGE RATE OF 121 BEATS PER MINUTE. 3) OCCASIONAL PREMATURE VENTRICULAR CONTRACTIONS, RARE VENTRICULAR COUPLETS AND 4 EPISODES 3- TO 6-BEAT VENTRICULAR RUNS. Multi-Disciplinary Progress Notes: Multi-Disciplinary Progress Notes 06/23/25 10:57 Case Management Note by Johana Randle/W PATIENT- SHE CONTINUES TO DENY ANY NEW NEEDS AT TIME OF DC. SHE PLANS TO DC HOME TO HER PLF AT TIME OF DC Initialized on 06/23/25 10:57 - END OF NOTE Assessment & Plan (1) Hypertensive urgency Current Visit: Yes Status: Acute Assessment & Plan: Acceptable control 24 hours after discontinuing nicardipine drip. Will continue current dose of amlodipine (5 mg daily) initiated yesterday and higher dose of valsartan (160 mg BID). Continue same dose of clonidine as prior to admission. Patient to limit sodium intake to 2000 mg daily and keep BP diary. She was instructed to check BP after awakening and before supper after sitting for 5 minutes. Diary is to be brought to her MD appointments. She is to follow up with her process consultant, Dr. Chao Shoemaker, and her PCP. Will need BMP in one to follow-up creatinine and postassium with increase in valsartan dosage. Code(s): I16.0 - HYPERTENSIVE URGENCY (2) Atherosclerosis of coronary artery bypass graft without angina pectoris Current Visit: Yes Status: Chronic Assessment & Plan: Remains free of angina. [place] class 0. Code(s): I25.810 - ATHEROSCLEROSIS OF CABG W/O ANGINA PECTORIS (3) Paroxysmal atrial tachycardia Current Visit: Yes Status: Chronic Assessment & Plan: Unclear if also diagnosed with atrial fibrillation or atrial flutter. Continue amiodarone. Restart Eliquis. Will reduce metoprolol to metoprolol succinate 12.5 mg daily. (4) Sinus bradycardia Current Visit: Yes Status: Acute Assessment & Plan: Secondary to metoprolol + clonidine. Sinus rate 51-62 bpm today. Will decrease metoprolol to metoprolol succiinate 12.5 mg daily. Code(s): R00.1 - BRADYCARDIA, UNSPECIFIED - Encounter Encounter: The entirety of this encounter was performed via Telemedicine using audio and visual. Permission granted by patient for this type of encounter. Case discussed with Sharmin Mir NP. Sid Maya MD [facility] [phone]
--- NOTE | 2025-06-23 13:38 | PCM.DS ---
Discharge Summary Date of Admission: 06/22/25 07:10 Date of Discharge: 06/23/25 Admitting Physician: CANDACE EMERSON MD Consults: Consults on Case 06/22/25 17:08 Consult Cardiology ROUTINE Primary Care Provider: HAMIDA SINCLAIR Allergies Allergies adhesive tape Allergy (Verified 06/22/25 07:59) cephalexin [From Keflex] Allergy (Verified 06/22/25 07:59) Vomiting itchy and vomiting Hospital Summary - Hospital Course Hospital Course: Ms. Abdalla is a 60-year-old woman with coronary artery disease status post CABG in 2024 (Dr. Martin), longstanding hypertension, hyperlipidemia, chronic kidney disease, and Elida pouch urinary diversion with self-catheterization every 24 hours, who presented on 06/22/2025 with her first episode of spontaneous epistaxis. She described a sudden-onset nosebleed about 1.5 hours before arrival, without trauma, nose picking, recent URI, sinus disease, or prior history of epistaxis. She takes apixaban (Eliquis) at home but is unsure of the indication, denying known atrial fibrillation or prior VTE, though she does have significant coronary disease and recent CABG. On arrival to the ED, her blood pressure was severely elevated at 207/118. She was otherwise hemodynamically stable, afebrile, and in no respiratory distress. She denied chest pain, dyspnea, palpitations, focal neurologic symptoms, visual changes, confusion, or GI symptoms. The epistaxis was controlled in the ED with topical therapy and packing, and there was no evidence of hemodynamic compromise. Initial management for her blood pressure included her home oral clonidine 0.2 mg and valsartan 80 mg, but her blood pressure remained in a severely elevated range, prompting initiation of an intravenous nicardipine infusion for more controlled blood pressure reduction. Laboratory evaluation was notable for a chloride of 108 and creatinine 1.28, near her reported baseline around 1.2 , consistent with stable chronic kidney disease. No significant electrolyte derangements or leukocytosis were present. EKG showed normal sinus rhythm with a heart rate of 80, left anterior fascicular block, and right bundle branch block, with no acute ischemic changesfindings consistent with baseline conduction disease in the setting of prior CAD/CABG. She remained free of chest pain or shortness of breath during her ED and inpatient stay. She was admitted for management of hypertensive urgency, monitoring for recurrent bleeding, and reassessment of anticoagulation riskbenefit. Nicardipine infusion was used to carefully lower blood pressure; there were no neurologic changes or signs of stroke or GA during this period. Epistaxis did not recur after initial control. Eliquis was held initially while blood pressure was severely elevated and the bleeding risk remained a concern. By 06/23/2025, her blood pressure had stabilized, nicardipine drip discontinued (06/22/25) with systolic values in the [id number] range. Cardiology (Dr. Gracia) evaluated her and recommended a more durable oral regimen for long- term blood pressure and cardiac management: Increase valsartan to 160 mg twice daily; Start metoprolol succinate 12.5 mg daily;Continue amiodarone 200 mg daily;Add amlodipine 5 mg daily;Continue clonidine 0.2 mg twice daily;Continue Imdur 60 mg daily With blood pressure now controlled and no recurrent epistaxis, cardiology recommended resuming Eliquis, as the perceived thromboembolic risk (given her complex cardiac history and prior CABG) outweighed the bleeding risk once blood pressure and epistaxis were stabilized. She expressed a desire for discharge, and cardiology cleared her to go home with close outpatient follow-up. Ms. Abdalla was discharged in stable condition, with improved and controlled blood pressure, resolved epistaxis, and a clarified blood pressure and anticoagulation regimen, with follow-up arranged. Discharge Note New Diagnosis:Hypertensive urgency/epitaxis New Medications:Increase valsartan to 160 mg twice daily; Start metoprolol succinate 12.5 mg daily Follow Up: PCP/Cardiology I spent 40minutes [id number] with the patient on the day of discharge performing discharge exam, discussing hospital stay and discharge instructions with patient and caregivers, preparation of discharge records, prescriptions & referral forms and addressing any questions/concerns the patient had as documented above. - Vitals & Intake/Output Vital Signs: Vital Signs Temperature 97.4 F 06/23/25 13:00 Pulse Rate 53 L 06/23/25 13:00 Respiratory Rate 17 06/23/25 13:00 Blood Pressure 157/70 06/23/25 13:00 O2 Sat by Pulse Oximetry 97 06/23/25 13:32 Intake & Output: Intake & Output 06/21/25 06/22/25 06/23/25 06/24/25 11:59 11:59 11:59 11:59 Intake Total 120 1196 Output Total 5882 3895 Balance -2130 -1304 Weight 80 kg 77.7 kg - Lab Result Diagrams: 06/23/25 04:35 06/23/25 04:35 Lab Results-Last 24 Hrs: Lab Results-Last 24 Hours 06/22/25 06/22/25 06/23/25 Range/Units 12:14 18:10 04:35 WBC 6.0 (3.98-10.04) x10^3/uL RBC 3.86 L (3.93-5.22) x10^6/uL Hgb 10.9 L (11.2-15.7) g/dL Hct 34.5 (34.1-44.9) % MCV 89.4 (79.4-94.8) fL MCH 28.2 (25.6-32.2) pg MCHC 31.6 L (32.2-35.5) g/dL RDW 14.7 H (11.7-14.4) % Plt Count 221 (182-369) x10^3/uL MPV 10.4 (9.4-12.3) fL Gran % 63.2 (34.0-71.1) % Immature Gran % (Auto) 0.2 (0.001-0.429) % Nucleat RBC Rel Count 0.0 (0.00-0.2) % Eos # (Auto) 0.26 (0.04-0.36) x10^3/uL Immature Gran # (Auto) 0.01 (0.001-0.031) x10^3u/L Absolute Lymphs (auto) 1.49 (1.18-3.74) x10^3/uL Absolute Monos (auto) 0.41 (0.24-0.86) x10^3/uL Absolute Nucleated RBC 0.00 (0.00-0.012) x10^3u/L Lymphocytes % 24.7 (19.3-51.7) % Monocytes % 6.8 (4.7-12.5) % Eosinophils % 4.3 (0.7-5.8) % Basophils % 0.8 (0.1-1.2) % Absolute Granulocytes 3.82 (1.56-6.13) x10^3/uL Basophils # 0.05 (0.01-0.08) x10^3/uL Sodium (135-145) mmol/L Potassium (3.5-5.1) mmol/L Chloride (98-107) mmol/L Carbon Dioxide (22-30) mmol/L Anion Gap (5-15) MEQ/L BUN (7-17) mg/dL Creatinine (0.52-1.04) mg/dL Estimated GFR ML/MIN Glucose (74-106) mg/dL Calcium (8.4-10.2) mg/dL Total Bilirubin (0.2-1.3) mg/dL AST (14-36) U/L ALT (0-35) U/L Alkaline Phosphatase (38-126) U/L Troponin I < 0.012 (0.000-0.033) ng/mL Troponin I High Sens 15.4 (<2.9-14) ng/mL Serum Total Protein (6.3-8.2) g/dL Albumin (3.5-5.0) g/dL 06/23/25 Range/Units 04:35 WBC (3.98-10.04) x10^3/uL RBC (3.93-5.22) x10^6/uL Hgb (11.2-15.7) g/dL Hct (34.1-44.9) % MCV (79.4-94.8) fL MCH (25.6-32.2) pg MCHC (32.2-35.5) g/dL RDW (11.7-14.4) % Plt Count (182-369) x10^3/uL MPV (9.4-12.3) fL Gran % (34.0-71.1) % Immature Gran % (Auto) (0.001-0.429) % Nucleat RBC Rel Count (0.00-0.2) % Eos # (Auto) (0.04-0.36) x10^3/uL Immature Gran # (Auto) (0.001-0.031) x10^3u/L Absolute Lymphs (auto) (1.18-3.74) x10^3/uL Absolute Monos (auto) (0.24-0.86) x10^3/uL Absolute Nucleated RBC (0.00-0.012) x10^3u/L Lymphocytes % (19.3-51.7) % Monocytes % (4.7-12.5) % Eosinophils % (0.7-5.8) % Basophils % (0.1-1.2) % Absolute Granulocytes (1.56-6.13) x10^3/uL Basophils # (0.01-0.08) x10^3/uL Sodium 141 (135-145) mmol/L Potassium 3.7 (3.5-5.1) mmol/L Chloride 109 H (98-107) mmol/L Carbon Dioxide 20 L (22-30) mmol/L Anion Gap 15.2 H (5-15) MEQ/L BUN 26 H (7-17) mg/dL Creatinine 1.30 H (0.52-1.04) mg/dL Estimated GFR 47.1 ML/MIN Glucose 119 H (74-106) mg/dL Calcium 9.7 (8.4-10.2) mg/dL Total Bilirubin 0.50 (0.2-1.3) mg/dL AST 25 (14-36) U/L ALT 24 (0-35) U/L Alkaline Phosphatase 82 (38-126) U/L Troponin I (0.000-0.033) ng/mL Troponin I High Sens (<2.9-14) ng/mL Serum Total Protein 6.9 (6.3-8.2) g/dL Albumin 4.1 (3.5-5.0) g/dL Discharge Exam General Appearance: no apparent distress Neurologic Exam: alert, oriented x 3, cooperative Eye Exam: PERRL Ears, Nose, Throat Exam: normal ENT inspection Neck Exam: normal inspection Respiratory Exam: normal breath sounds, lungs clear Cardiovascular Exam: bradycardia Gastrointestinal/Abdomen Exam: soft, normal bowel sounds Pelvic Exam: deferred Rectal Exam: deferred Back Exam: normal inspection Extremity Exam: normal inspection Skin Exam: normal color Final Diagnosis/Problem List - Final Discharge Diagnosis/Problem (1) Hypertensive urgency Current Visit: Yes Status: Acute Assessment & Plan: Presentation with BP 207/118 and severe, persistent elevation despite home clonidine and valsartan, requiring IV nicardipine infusion for controlled reduction. No chest pain, neurologic deficit, or EKG signs of acute ischemia; no clinical evidence of stroke or GA during hospitalization. Blood pressure improved and stabilized to SBP [id number] by 06/23/25 on a revised oral regimen. Discharge Plan: Valsartan 160 mg twice daily Metoprolol succinate 12.5 mg daily Amlodipine 5 mg daily Clonidine 0.2 mg twice daily Imdur 60 mg daily Continue to monitor blood pressures at home if able; target SBP generally <882143 depending on cardiology/PCP guidance. Avoid abrupt withdrawal of clonidine to prevent rebound hypertension. Close follow-up with cardiology and primary care to further refine regimen and avoid recurrent hypertensive urgencies. Code(s): I16.0 - HYPERTENSIVE URGENCY (2) Epistaxis Current Visit: Yes Status: Acute Assessment & Plan: First-ever spontaneous nosebleed, occurring at home without trauma or precipitating factor. On arrival, no hemodynamic instability; controlled with local measures (TXA- soaked anterior nasal packing and pressure). Eliquis was held initially while hypertension was uncontrolled and active bleeding was a concern. No recurrence of epistaxis during hospitalization once blood pressure was managed. Discharge Plan: Eliquis resumed per cardiology recommendation now that blood pressure is controlled and there has been no rebleeding. Educated patient on: Avoiding forceful nose blowing, nasal trauma, or aggressive nose picking;Using humidification/saline spray in dry environments;Reporting any recurrent nosebleeds, prolonged bleeding, or signs of anemia (fatigue, dizziness). ENT referral to be considered as an outpatient only if epistaxis recurs or becomes difficult to control. Code(s): R04.0 - EPISTAXIS (3) CKD (chronic kidney disease) Current Visit: Yes Status: Acute Assessment & Plan: Creatinine on admission 1.28 mg/dL, consistent with reported baseline around 1.2 mg/dL, suggesting stable CKD. No evidence of acute kidney injury during hospitalization; Code(s): N18.9 - CHRONIC KIDNEY DISEASE, UNSPECIFIED (4) Intermittent self-catheterization of bladder Current Visit: Yes Status: Acute Assessment & Plan: Continue self-catheterization at her usual schedule. Monitor for signs of UTI (fever, foul-smelling urine, pelvic/flank pain); follow up with urology or PCP as needed. Code(s): Z78.9 - OTHER SPECIFIED HEALTH STATUS (5) Chronic anticoagulation Current Visit: Yes Status: Acute Assessment & Plan: Patient takes apixaban (Eliquis) at home but is unclear on the original indication; denies known AF or prior VTE. Given recent CABG and complex cardiac history, cardiology assessed that the benefits of anticoagulation outweigh the risks once her BP and bleeding were controlled. Discharge Plan: Resume Eliquis at home dose per cardiology. Educate on bleeding precautions and when to seek care (melena, hematuria, prolonged bleeding, large unexplained bruises, falls). Cardiology and PCP to clarify and document the formal indication for ongoing anticoagulation and reassess periodically. Code(s): Z79.01 - [employer] (CURRENT) USE OF ANTICOAGULANTS (6) HLD (hyperlipidemia) Current Visit: No Status: Chronic Assessment & Plan: continue statin Code(s): E78.5 - HYPERLIPIDEMIA, UNSPECIFIED (7) Hypertension Current Visit: No Status: Chronic Assessment & Plan: see above Code(s): I10 - ESSENTIAL (PRIMARY) HYPERTENSION - Discharge Discharge Date: 06/23/25 Disposition: Home, Self-Care Condition: Stable Prescriptions: New Metoprolol Succinate 12.5 mg PO DAILY 30 Days #15 tab Amlodipine Besylate 5 mg [Norvasc 5 mg] 5 mg PO QAM 30 Days #30 tablet Continue Clonidine HCl 0.1 mg [Clonidine 0.1 mg Tablet] 0.2 mg PO BID Topiramate 50 mg PO BID Aspirin EC 81 mg [Ecotrin 81 mg] 81 mg PO DAILY Cholecalciferol (Vitamin D3) [Vitamin D3] 50 mcg PO DAILY Ascorbic Acid 500 mg [Vitamin C 500 MG] 1,000 mg PO DAILY Ferrous Sulfate 325 mg [Feosol 325 mg] 325 mg PO DAILY Apixaban [Eliquis 2.5 mg Tablet] 5 mg PO BID Atorvastatin Calcium [Lipitor 40Mg] 80 mg PO DAILY Isosorbide Mononitrate 30 mg [Imdur 30 MG] 60 mg PO DAILY Duloxetine HCl 60 mg PO DAILY Amiodarone HCl 200 mg PO DAILY Changed Valsartan [Diovan] 160 mg PO BID 30 Days #120 tablet Follow up with: VASILE GREEN [CONSULTING PHYSICIAN, CARDIOLOGY] - 06/28/25 12:00 pm Referral Note: [facility] HAMIDA SINCLAIR NP [Primary Care Provider, [facility]] - 06/30/25 11:00 am
[2025-06-23 14:13] VITALS: RESP 18
[2025-06-23 14:35] VITALS: BP 139/63; PULSE 54
[2025-06-23 14:37] VITALS: O2SAT 97
== END 2025-06-23 14:43 | disposition home or self-care (01) ==
LOC: ED 01:45 → ICU 07:10
PROVIDERS: ADMIT Internal Medicine; ATTEND Internal Medicine
DX: I16.0 Hypertensive urgency (principal); I25.810 Atherosclerosis of coronary artery bypass graft(s) without angina pectoris; Z59.811 Housing instability, housed, with risk of homelessness; R04.0 Epistaxis; I48.91 Unspecified atrial fibrillation; E78.5 Hyperlipidemia, unspecified; I12.9 Hypertensive chronic kidney disease with stage 1 through stage 4 chronic kidney disease, or unspecified chronic kidney disease; N18.9 Chronic kidney disease, unspecified; R00.1 Bradycardia, unspecified; Z79.01 Long term (current) use of anticoagulants; Z95.0 Presence of cardiac pacemaker; Z78.9 Other specified health status; Z79.899 Other long term (current) drug therapy